=== PATIENT | female | born 1945 | race Caucasian/White ===

== ENCOUNTER 2018-09-30 03:01 | Inpatient (IN) | payer MEDICARE, OTHER ==
[~2018-09-30] VITALS: Ht 160 cm; Wt 45.5 kg
[2018-09-30] MEDS ORDERED: ONDANSETRON (ODT) 4 MG TAB ODT STA (03:08)
[2018-09-30] MEDS ORDERED: morphine 4 MG/ML VIAL IM STA (03:08)
[2018-09-30] MEDS ORDERED: morphine 4 MG/ML VIAL IV STA (05:20)
[2018-09-30] MEDS ORDERED: ONDANSETRON 4 MG INJ IV STA (05:20)
[2018-09-30 08:15] VITALS: BP 157/71; PULSE 87
[2018-09-30] MEDS ORDERED: morphine 4 MG/ML VIAL IV PRN (08:45)
[2018-09-30] MEDS: DEXTROSE 5%-0.45% NACL 1,000 ML IV SCH ×2 (09:00→22:44)
[2018-09-30] MEDS ORDERED: HYDROCODONE/APAP (5/325) TAB PO PRN (09:00)
[2018-09-30] MEDS ORDERED: ACETAMINOPHEN 325 MG TAB PO PRN (09:00)
[2018-09-30] MEDS: HYDROmorphONE 1 MG/ML SYG IV PRN ×3 (11:33→19:24)
[2018-09-30] MEDS ORDERED: OMEP10CA4 PO (12:42)
[2018-09-30] MEDS ORDERED: METO-448 PO (12:42)
[2018-09-30 12:55] VITALS: Ht 160 cm; Wt 45.5 kg
--- NOTE | 2018-09-30 14:56 | CONDCODE ---
Medicare Criteria-> INP to OBS Patient still in hospital: Yes SI/IS Criteria met: Yes Attending MD agrees w/change: Yes Order entered in Pt. record: Yes Pt. does not meet Inp Criteria: Yes Medicare Inp->Obs Criteria met: Yes UR Phys Advisor eSign required: Yes I personally scribed for TONEY DEL CID MD ([email or web address]) on 09/30/18 at 14:56. Electronically submitted by Jacob Padilla [facility] ([email or web address]). TONEY DEL CID MD Sep 30, 2018 14:56
--- NOTE | 2018-09-30 14:56 | CONDCODE ---
Medicare Criteria-> INP to OBS Patient still in hospital: Yes SI/IS Criteria met: Yes Attending MD agrees w/change: Yes Order entered in Pt. record: Yes Pt. does not meet Inp Criteria: Yes Medicare Inp->Obs Criteria met: Yes UR Phys Advisor eSign required: Yes External PA Confirmation from External PA: Yes I personally scribed for LORI MONTOYA MD ([email or web address]) on 09/30/18 at 14:56. Electronically submitted by Jacob Padilla [facility] ([facility]). LORI MONTOYA MD Sep 30, 2018 14:56
[2018-09-30 15:46] VITALS: BP 106/58; PULSE 75; RESP 18
[2018-09-30] MEDS: HYDROCODONE/APAP (5/325) TAB PO PRN ×2 (16:32→22:39)
[2018-09-30 19:44] VITALS: BP 102/85; PULSE 85; RESP 18
[2018-09-30 19:53] VITALS: BP 120/57; PULSE 83; RESP 18
[2018-09-30] MEDS: ZOLPIDEM 5 MG TAB PO PRN (21:47)
[2018-10-01 02:24] VITALS: BP 149/74; PULSE 89; RESP 18
[2018-10-01] MEDS: ALBUTEROL 0.083% (NEB) 2.5 MG/3 ML AMP HHN PRN ×2 (02:38→16:35)
[2018-10-01] MEDS: ONDANSETRON 4 MG INJ IV PRN ×3 (04:56→21:34)
[2018-10-01] MEDS: HYDROCODONE/APAP (5/325) TAB PO PRN ×4 (04:57→21:34)
[2018-10-01 07:36] VITALS: BP 117/58; PULSE 76; RESP 18
[2018-10-01 09:59] VITALS: BP 156/72; PULSE 86; RESP 19
[2018-10-01] MEDS ORDERED: SPECIAL NON-STANDARD MEDICATION INH PRN ×2 (12:00→23:45)
[2018-10-01] MEDS ORDERED: PANTOPRAZOLE (EC) 40 MG TAB PO SCH (12:00)
[2018-10-01] MEDS ORDERED: METOPROLOL 25 MG TAB PO ONE (12:00)
[2018-10-01] MEDS: HYDROmorphONE 1 MG/ML SYG IV PRN (12:21)
[2018-10-01] MEDS: DEXTROSE 5%-0.45% NACL 1,000 ML IV SCH (12:21)
--- NOTE | 2018-10-01 13:12 | PN ---
Date/Time of Note Date/Time of Note DATE: 10/01/18 TIME: 13:11 Assessment/Plan VTE Prophylaxis Risk score (from Nsg)>0 risk: 3 SCD applied (from Nsg): Yes Lines/Catheters IV Catheter Type (from Nrsg): [place] Urinary Cath still in place: No Assessment/Plan Assessment/Plan Positive fracture of the left proximal humerus. - not a surgical candidate per ortho consult - pain control - SP Mechanical fall - bed alarm on - Leukocytosis; but afebrile- possibly 2/2 to stress - monitor CBC - monitor VS - COPD - GERD - ppi - Generalized weakness - PT eval - SCD - Hx Heart attack; Sp stent placement Positive fracture of the left proximal humerus. - no acute issues - dW Dr Awan Result Diagram: 09/30/1851409/30/18514 Subjective 24 Hr Interval Summary Musculoskeletal: bone/joint pain, restricted range of motion Exam/Review of Systems Exam Vitals Vital Signs Date Temp Pulse Resp B/P (MAP) Pulse Ox O2 O2 Flow FiO2 Time Delivery Rate 10/01/18 98.2 86 19 156/72 98 09:59 (100) 10/01/18 Nasal 2.0 08:30 Cannula Intake and Output 09/30/18 09/30/18 10/01/18 1515:00 23:00 07:00 IntakeIntake Total 1240 ml OutputOutput Total 100 ml BalanceBalance 1240 ml -100 ml Constitutional: alert, well developed Psych: nl mood/affect Musculoskeletal: joint tenderness, range of motion Medications Medication Current Medications Acetaminophen (Tylenol Tab) 650 mg Q4H PRN PO MILD PAIN(1-3)OR ELEVATED TEMP; Start 09/30/18 at 09:00 Acetaminophen/ Hydrocodone Bitart ([place] (5/325)) 1 tab Q4H PRN PO MODERATE PAIN LEVEL 4-6; Start 09/30/18 at 09:00 Acetaminophen/ Hydrocodone Bitart ([place] (5/325)) 2 tab Q4H PRN PO MODERATE P AIN LEVEL 4-6 Last administered on 10/01/18at 08:59; Admin Dose 2 TAB; Start 09/30/18 at 09:00 Ondansetron HCl (Zofran Inj) 4 mg Q6H PRN IV NAUSEA AND/OR VOMITING Last administered on 4/26/19at 12:20; Admin Dose 4 MG; Start 09/30/18 at 09:00 Dextrose/Sodium Chloride 1,000 ml @ 75 mls/hr [id number] IV Last administered on 10/01/18 12:21; Admin Dose 75 MLS/HR; Start 09/30/18 at 09:00 Hydromorphone HCl (Dilaudid) 1 mg Q3H PRN IV SEVERE PAIN LEVEL 7-10 Last administered on 10/01/18 12:21; Admin Dose 1 MG; Start 09/30/18 at 11:30 Zolpidem Tartrate (Ambien) 5 mg HS MAY REPEAT X 1 PRN PO INSOMNIA Last administered on 09/30/18 21:47; Admin Dose 5 MG; Start 09/30/18 at 20:30 Albuterol (Proventil 0.083% (Neb)) 2.5 mg Q6H RESP THERAPY PRN HHN SHORTNESS OF BREATH Last administered on 10/01/18 02:38; Admin Dose 2.5 MG; Start 10/01/18 at 02:30 Pantoprazole (Protonix Tab) 40 mg DAILY@06 PO Last administered on 10/01/18at 12:11; Admin Dose 40 MG; Start 10/01/18 at 12:00 Non-Formulary Medication 2 ea BID INH ; Start 10/01/18 at 21:00; Status UNV Non-Formulary Medication 2 ea BID PRN INH WHEEZING AND SOB; Start 10/01/18 at 12:00; Status UNV Metoprolol Tartrate (Lopressor) 25 mg DAILY PO ; Start 10/02/18 at 09:00 DANUTA ARAUJO Oct 01, 2018 13:12
[2018-10-01 14:19] VITALS: BP 134/63; PULSE 76; RESP 18
--- NOTE | 2018-10-01 19:00 | CONS ---
DATE OF ADMISSION: 09/30/2018 DATE OF CONSULTATION: 09/30/2018 TYPE OF CONSULTATION: Orthopedic surgical. HISTORY OF PRESENT ILLNESS: The patient is a 72-year-old female who was admitted on 09/30/2018 when she came to the emergency room complaining of painful swelling and limit of motion involving her left shoulder. According to available information, she had a ground-level fall, landing on her left shou lder. Following the fall, she was having pain and swelling and limit of motion involving her left sh oulder. The initial diagnostic evaluation in the emergency room revealed presence of fracture involv ing the proximal left humerus and following initial management with the splint immobilization, she wa s admitted. PAST MEDICAL HISTORY: She has a history of heart attack, COPD and GERD. PHYSICAL EXAMINATION: My examination revealed a 72-year-old female who was not in any acute distress . Her left upper extremity was immobilized in a sling with long arm posterior splint in place. Limi jah examination through the splint revealed presence of swelling and tenderness over the proximal hum erus. There was no obvious neurovascular compromise involving the left upper extremity. DIAGNOSTIC STUDIES: X-rays of the left shoulder revealed presence of undisplaced fracture involving the surgical neck of the left humerus. DIAGNOSTIC IMPRESSION: Surgical neck fracture of the left humerus at the left shoulder. RECOMMENDATIONS FOR MANAGEMENT: 1. Continue immobilization in the present splint and sling for now. 2. Not a candidate for any surgical intervention at this time. 3. Immobilization with the left upper extremity in a sling and splint and a cane on the right hand w ith physical therapy. If she cannot tolerate the ambulation, then she can be discharged for further care as an outpatient. Dictated By: CINDY OCHOA/OWEN Conf#: [id number] DID#: [id number] CC: TONEY DEL CID MD;*EndCC*
[2018-10-01 21:00] VITALS: BP 148/72; PULSE 83; RESP 18
[2018-10-01] MEDS ORDERED: SPECIAL NON-STANDARD MEDICATION INH SCH (21:00)
[2018-10-01] MEDS: SPECIAL NON-STANDARD MEDICATION INH SCH (23:50)
[2018-10-01] MEDS: ZOLPIDEM 5 MG TAB PO PRN (23:50)
[2018-10-02 01:25] VITALS: BP 152/68; PULSE 77; RESP 18
[2018-10-02] MEDS: DEXTROSE 5%-0.45% NACL 1,000 ML IV SCH ×3 (05:56→21:42)
[2018-10-02] MEDS: HYDROCODONE/APAP (5/325) TAB PO PRN ×4 (05:57→21:28)
[2018-10-02 08:18] VITALS: BP 141/67; PULSE 88; RESP 18
[2018-10-02] MEDS ORDERED: OMEPRAZOLE 20 MG TABLET PO SCH (09:00)
[2018-10-02] MEDS: SPECIAL NON-STANDARD MEDICATION INH SCH ×2 (10:01→21:00)
[2018-10-02] MEDS: NICOTINE (14 MG/24 HR) PATCH TRANSDERM SCH (10:02)
[2018-10-02] MEDS: METOPROLOL 25 MG TAB PO SCH (10:02)
--- NOTE | 2018-10-02 15:03 | HP ---
Date/Time of Note Date/Time of Note DATE: 09/30/18 TIME: 14:20 Assessment/Plan VTE Prophylaxis Risk score (from Nsg)>0 risk: 2 SCD applied (from Nsg): Yes Lines/Catheters IV Catheter Type (from Nrsg): [place] Lock Assessment/Plan Assessment/Plan -Positive fracture of the left proximal humerus. - admit to tele - ortho consult - pain control - see admission orders - SP Mechanical fall - bed alarm om - COPD- breathing treatments - GERD - ppi - Drug Allergy -Penicillin -Sulfa - GERD - ppi - Generalized weakness - PT /OT eval - Hx Heart attack; Sp stent placement - cardiology consult - Former smoker - reinforce smoking cessation - provide smoking cessation - SCD for DVT prophylaxis Patient is seen in collaboration with Dr Awan Result Diagram: 09/30/18 0515 09/30/18 0515 Results 24hrs Laboratory Tests Test 09/30/18 05:15 White Blood Count 12.7 H Red Blood Count 3.94 L Hemoglobin 11.3 L Hematocrit 36.1 L Mean Corpuscular Volume 91.6 Mean Corpuscular Hemoglobin 28.7 L Mean Corpuscular Hemoglobin Concent 31.3 L Red Cell Distribution Width 17.0 H Platelet Count 303 Mean Platelet Volume 10.3 Immature Granulocytes % 0.600 H Neutrophils % 85.6 H Lymphocytes % 6.3 L Monocytes % 4.7 Eosinophils % 2.1 Basophils % 0.7 Nucleated Red Blood Cells % 0.0 Immature Granulocytes # 0.070 H Neutrophils # 10.8 H Lymphocytes # 0.8 Monocytes # 0.6 Eosinophils # 0.3 Basophils # 0.1 Nucleated Red Blood Cells # 0.0 Prothrombin Time 11.9 Prothrombin Time Ratio 0.9 INR International Normalized Ratio 0.87 Activated Partial Thromboplast Time 29.1 Sodium Level 140 Potassium Level 4.3 Chloride Level 104 Carbon Dioxide Level 29 Anion Gap 7 Blood Urea Nitrogen 20 Creatinine 0.74 Est Glomerular Filtrat Rate mL/min Glucose Level 127 Calcium Level 9.2 Total Bilirubin 0.1 L Direct Bilirubin 0.00 Indirect Bilirubin 0.1 Aspartate Amino Transf (AST/SGOT) 17 Alanine Aminotransferase (ALT/SGPT) 11 L Alkaline Phosphatase 103 Total Protein 6.9 Albumin 3.7 Globulin 3.20 Albumin/Globulin Ratio 1.15 HPI/ROS Admit Date/Time Admit Date/Time Sep 30, 2018 at 04:43 ROS This is a 72 years old female is admitted with SP Fall, c/o right shoulder pain. Shoulder X ray showed Positive fracture of the left proximal humerus.Seen by Dr Burleson- derrell surgery needed PMH/Family/Social Past Medical History Heart attack COPD Generelizew Medical History: GERD Medications Current Medications Acetaminophen (Tylenol Tab) 650 mg Q4H PRN PO MILD PAIN(1-3)OR ELEVATED TEMP; Start 09/30/18 at 09:00 Acetaminophen/ Hydrocodone Bitart ([place] (5/325)) 1 tab Q4H PRN PO MODERATE PAIN LEVEL 4-6; Start 09/30/18 at 09:00 Acetaminophen/ Hydrocodone Bitart ([place] (5/325)) 2 tab Q4H PRN PO MODERATE PAIN LEVEL 4-6; Start 09/30/18 at 09:00 Ondansetron HCl (Zofran Inj) 4 mg Q6H PRN IV NAUSEA AND/OR VOMITING; Start 09/30/18 at 09:00 Dextrose/Sodium Chloride 1,000 ml @ 75 mls/hr [id number] IV Last administered on 09/30/18at 09:00; Admin Dose 75 MLS/HR; Start 09/30/18 at 09:00 Hydromorphone HCl (Dilaudid) 1 mg Q3H PRN IV SEVERE PAIN LEVEL 7-10 Last admi nistered on 09/30/18at 11:33; Admin Dose 1 MG; Start 09/30/18 at 11:30 Coded Allergies: Penicillins (Verified Allergy, Mild, HIVES, ITCHINESS, RASHES, 09/10/06) Sulfa (Sulfonamide Antibiotics) (Verified Allergy, Mild, HIVES, ITCHINESS, RASHES, 09/10/06) Past Surgical History sp Cardiac stent Social History Alcohol Use: sober Smoking Status: Current every day smoker Exam/Review of Systems Vital Signs Vitals Vital Signs Date Temp Pulse Resp B/P (MAP) Pulse Ox O2 O2 Flow FiO2 Time Delivery Rate 09/30/18 Nasal 2.0 08:30 Cannula 09/30/18 98.5 87 157/71 96 08:15 (99) 09/30/18 16 07:31 Exam Psych: nl mood/affect Respiratory: diminished breath sounds Cardiovascular: nl pulses Gastrointestinal: soft, non-tender Musculoskeletal: joint tenderness, range of motion Extremities: normal pulses SADEORA,DANUTA Sep 30, 2018 14:31
[2018-10-02 15:09] VITALS: BP 150/74; PULSE 76; RESP 18
--- NOTE | 2018-10-02 15:16 | PN ---
Date/Time of Note Date/Time of Note DATE: 10/02/18 TIME: 14:26 Assessment/Plan VTE Prophylaxis Risk score (from Nsg)>0 risk: 4 SCD applied (from Nsg): Yes Lines/Catheters IV Catheter Type (from Nrsg): Peripheral IV Urinary Cath still in place: No Assessment/Plan Assessment/Plan Positive fracture of the left proximal humerus. - not a surgical candidate per ortho consult - pain control - SP Mechanical fall - bed alarm on - Leukocytosis; but afebrile- possibly 2/2 to stress - monitor CBC - monitor VS - COPD - pulm toilet - CT chest - possible lung opacity ; possible carcinoma - Pulm consult- Dr Hinds notified - possible alveolar cancer - oncology consult- Dr Tucker notified - GERD - ppi - Generalized weakness - PT eval - SCD - Hx Heart attack; Sp stent placement Positive fracture of the left proximal humerus. - patient had shortness of breath at times; 2-D echo cancelled 2/2 left arm position - will get cardiology consult - Dr Kline notified - Patient niece- Anthony Lin at [phone] - updated by Dr Awan regarding her status. for dW Dr Awan Result Diagram: 10/02/18 0436 10/02/18 0436 Results 24hrs Laboratory Tests Test 10/02/18 04:36 10/02/18 10:46 White Blood Count 9.3 # Red Blood Count 3.89 L Hemoglobin 11.2 L Hematocrit 36.2 L Mean Corpuscular Volume 93.1 Mean Corpuscular Hemoglobin 28.8 L Mean Corpuscular Hemoglobin Concent 30.9 L Red Cell Distribution Width 16.2 H Platelet Count 264 Mean Platelet Volume 10.8 H Immature Granulocytes % 0.300 Neutrophils % 80.4 H Lymphocytes % 8.7 L Monocytes % 8.9 Eosinophils % 1.3 Basophils % 0.4 Nucleated Red Blood Cells % 0.0 Immature Granulocytes # 0.030 Neutrophils # 7.5 Lymphocytes # 0.8 Monocytes # 0.8 Eosinophils # 0.1 Basophils # 0.0 Nucleated Red Blood Cells # 0.0 Sodium Level 141 Potassium Level 3.9 Chloride Level 105 Carbon Dioxide Level 31 Anion Gap 5 Blood Urea Nitrogen 9 # Creatinine 0.56 Est Glomerular Filtrat Rate mL/min Glucose Level 121 Calcium Level 9.6 Total Bilirubin 0.2 Direct Bilirubin 0.00 Indirect Bilirubin 0.2 Aspartate Amino Transf (AST/SGOT) 17 Alanine Aminotransferase (ALT/SGPT) 10 L Alkaline Phosphatase 98 Total Protein 6.6 Albumin 3.3 Globulin 3.30 H Albumin/Globulin Ratio 1.00 Blood Gas Specimen Source Blood arterial Arterial Blood Date Drawn 10/02/2018 10:47:40 AM Arterial Blood pH (Temp corrected) 7.422 Arterial Blood pCO2 (Temp correct) 45.1 H Arterial Blood pO2 (Temp corrected) 57.9 L Arterial Blood HCO3 28.7 H Arterial Blood Base Excess 3.7 H Arterial Blood Oxygen Saturation 91.3 L Aristeo Test ACCEPTAB Arterial Blood Gas Puncture Site Right Radial Arterial Blood Carboxyhemoglobin 0.5 Arterial Blood Methemoglobin 0.1 Blood Gas A-a O2 Differential 37.8 H Oxyhemoglobin Percent 90.8 L Blood Gas Temperature 37.0 Blood Gas Modality ROOM AIR FiO2 21.0 Blood Gas Notified Whom MDA Blood Gas Notified Time 10/02/2018 10:52:18 AM Subjective 24 Hr Interval Summary Respiratory: no complaints Cardiovascular: no complaints Gastrointestinal: no complaints Genitourinary: no complaints Musculoskeletal: bone/joint pain, restricted range of motion Endocrine: no complaints Psychological: nl mood/affect Immunologic: no complaints Exam/Review of Systems Exam Vitals Vital Signs Date Temp Pulse Resp B/P (MAP) Pulse Ox O2 O2 Flow FiO2 Time Delivery Rate 10/02/18 98.9 88 18 141/67 92 Nasal 08:18 (91) Cannula 10/02/18 2.0 04:00 Intake and Output 10/01/18 10/01/18 10/02/18 1414:59 22:59 06:59 IntakeIntake Total 1100 ml 400 ml 655 ml OutputOutput Total 200 ml 600 ml 700 ml BalanceBalance 900 ml -200 ml -45 ml Constitutional: alert, well developed Psych: nl mood/affect Eyes: nl conjunctiva ENMT: nl external ears & nose Neck: non-tender Respiratory: diminished breath sounds Cardiovascular: nl pulses, other (s1s2) Gastrointestinal: soft, non-tender Musculoskeletal: joint tenderness, range of motion Neurological: nl speech, other Skin: nl turgor Lymph: nontender Results Results 24hrs Laboratory Tests Test 10/02/18 04:36 10/02/18 10:46 White Blood Count 9.3 # Red Blood Count 3.89 L Hemoglobin 11.2 L Hematocrit 36.2 L Mean Corpuscular Volume 93.1 Mean Corpuscular Hemoglobin 28.8 L Mean Corpuscular Hemoglobin Concent 30.9 L Red Cell Distribution Width 16.2 H Platelet Count 264 Mean Platelet Volume 10.8 H Immature Granulocytes % 0.300 Neutrophils % 80.4 H Lymphocytes % 8.7 L Monocytes % 8.9 Eosinophils % 1.3 Basophils % 0.4 Nucleated Red Blood Cells % 0.0 Immature Granulocytes # 0.030 Neutrophils # 7.5 Lymphocytes # 0.8 Monocytes # 0.8 Eosinophils # 0.1 Basophils # 0.0 Nucleated Red Blood Cells # 0.0 Sodium Level 141 Potassium Level 3.9 Chloride Level 105 Carbon Dioxide Level 31 Anion Gap 5 Blood Urea Nitrogen 9 # Creatinine 0.56 Est Glomerular Filtrat Rate mL/min Glucose Level 121 Calcium Level 9.6 Total Bilirubin 0.2 Direct Bilirubin 0.00 Indirect Bilirubin 0.2 Aspartate Amino Transf (AST/SGOT) 17 Alanine Aminotransferase (ALT/SGPT) 10 L Alkaline Phosphatase 98 Total Protein 6.6 Albumin 3.3 Globulin 3.30 H Albumin/Globulin Ratio 1.00 Blood Gas Specimen Source Blood arterial Arterial Blood Date Drawn 10/02/2018 10:47:40 AM Arterial Blood pH (Temp corrected) 7.422 Arterial Blood pCO2 (Temp correct) 45.1 H Arterial Blood pO2 (Temp corrected) 57.9 L Arterial Blood HCO3 28.7 H Arterial Blood Base Excess 3.7 H Arterial Blood Oxygen Saturation 91.3 L Aristeo Test ACCEPTAB Arterial Blood Gas Puncture Site Right Radial Arterial Blood Carboxyhemoglobin 0.5 Arterial Blood Methemoglobin 0.1 Blood Gas A-a O2 Differential 37.8 H Oxyhemoglobin Percent 90.8 L Blood Gas Temperature 37.0 Blood Gas Modality ROOM AIR FiO2 21.0 Blood Gas Notified Whom MDA Blood Gas Notified Time 10/02/2018 10:52:18 AM Medications Medication Current Medications Acetaminophen (Tylenol Tab) 650 mg Q4H PRN PO MILD PAIN(1-3)OR ELEVATED TEMP; Start 09/30/18 at 09:00 Acetaminophen/ Hydrocodone Bitart ([place] (5/325)) 1 tab Q4H PRN PO MODERATE PAIN LEVEL 4-6; Start 09/30/18 at 09:00 Acetaminophen/ Hydrocodone Bitart ([place] (5/325)) 2 tab Q4H PRN PO MODERATE PAIN LEVEL 4-6 Last administered on 10/02/18 12:08; Admin Dose 2 TAB; Start 09/30/18 at 09:00 Ondansetron HCl (Zofran Inj) 4 mg Q6H PRN IV NAUSEA AND/OR VOMITING Last administered on 10/01/18 21:34; Admin Dose 4 MG; Start 09/30/18 at 09:00 Dextrose/Sodium Chloride 1,000 ml @ 75 mls/hr [id number] IV Last administered on 10/02/18 05:56; Admin Dose 75 MLS/HR; Start 09/30/18 at 09:00 Hydromorphone HCl (Dilaudid) 1 mg Q3H PRN IV SEVERE PAIN LEVEL 7-10 Last administered on 10/01/18 12:21; Admin Dose 1 MG; Start 09/30/18 at 11:30 Zolpidem Tartrate (Ambien) 5 mg HS MAY REPEAT X 1 PRN PO INSOMNIA Last administered on 10/01/18 23:50; Admin Dose 5 MG; Start 09/30/18 at 20:30 Albuterol (Proventil 0.083% (Neb)) 2.5 mg Q6H RESP THERAPY PRN HHN SHORTNESS OF BREATH Last administered on 10/01/18 16:35; Admin Dose 2.5 MG; Start 10/01/18 at 02:30 Metoprolol Tartrate (Lopressor) 25 mg DAILY PO Last administered on 10/02/18 10:02; Admin Dose 25 MG; Start 10/02/18 at 09:00 Non-Formulary Medication 2 ea BID INH Last administered on 10/02/18 10:01; Admin Dose 2 EA; Start 10/01/18 at 23:28 Non-Formulary Medication 2 ea BID PRN INH WHEEZING AND SOB; Start 10/01/18 at 23:45 Calcium Carbonate (Tums) 500 mg Q4H PRN PO HEARTBURN; Start 10/02/18 at 01:00 Nicotine (Nicoderm 14 Mg/ 24hr) 1 patch DAILY TRANSDERM Last administered on 10/02/18 10:02; Admin Dose 1 PATCH; Start 10/02/18 at 09:00 Patient Own Medication 1 ea DAILY PO Last administered on 4/27/19at 10:12; Admin Dose 1 EA; Start 10/02/18 at 09:00 DANUTA ARAUJO Oct 02, 2018 14:37
--- NOTE | 2018-10-02 16:04 | CONS ---
Assessment/Plan Assessment/Plan Assessment/Plan (Daily) 72 yo F with PMH of COPD/emhysema, history of recurrent pneumonias, GERD and CAD s/p [place] who is admitted for a ground level mechanical fall resulting in a left proximal humerus fracture. Patient also had cough and CT scan showed a RML ground glass nodule of 5.4 mm. # RML ground glass lesion -It is quite small and this nodule could be inflammatory from her COPD and bronchopneumonia. -It is too small to safely biopsy at this point in time. -I would repeat another scan in 3 months after pneumonia resolved to see if this nodule is still present. -No need for inpatient work up at this time. -Patient has been seeing outpatient Dr. Mackey and thus she can follow with him as well for previous LLL surgery. # Left proximal humerus fracture -Ortho on board and patient is in a sling. Thank you to Dr. Awan for allowing me to participate in the care of this patient. A total of 40 minutes was spent in consultation with the patient and patient's questions were answered. Consultation Date/Type/Reason Admit Date/Time Sep 30, 2018 at 04:43 Date of Consultation: Oct 02, 2018 Type of Consult hematology/oncology Reason for Consultation 5.4 mm lung nodule Date/Time of Note DATE: 10/02/18 TIME: 16:04 Hx of Present Illness 72 yo F with PMH of COPD/emhysema, history of recurrent pneumonias, GERD and CAD s/p [place] who is admitted for a ground level mechanical fall resulting in a left proximal humerus fracture. Patient has also been complaining of productive cough for the past 1 week with green mucous. She also is on oxygen for her COPD and states that shortness of breath has been worse with exertion. Of note patient has been seeing Dr. Mackey for a possible lung cancer that has been surgically removed in the LLL. We do not have any history for this. Due to her breathing issues, patient had a CT scan done showin. Diffuse bronchitis / bronchiolitis predominantly involving the lower lobes, with findings suggestive of bronchopneumonia in the right middle lobe. 2. Ground-glass opacity in the lateral basilar right middle lobe is likely infectious or inflammatory in etiology, but could reflect bronchoalveolar carcinoma. Clinical correlation recommended with consideration for follow-up imaging. 3. Postsurgical changes of the posterior basilar left lower lobe with scarring and retained surgical clips. 4. Moderate COPD with some upper lobe bullous changes. 5. Mildly dilated main pulmonary artery, possibly reflecting pulmonary hypertension. 6. Aortic and mitral valve annular calcifications may reflect valvular stenosis, without cardiomegaly. 7. Atherosclerosis and coronary artery calcifications. 8. Nonspecific prominence of the biliary ductal system with probable mild pancreatic ductal dilatation in patient with prior cholecystectomy. Clinical correlation recommended with consideration for further evaluation with MRCP. Ground glass opacity was measuring about 5 mm in the RML. PMH: as above PSxH: as above SH: Tobacco: quit 3 months ago but smoked 1/2 ppd for 40 years. ETOH: socially. Denies IVDA. FH: Denies any family history of blood disorders or cancers. Meds: see list All: see list Constitutional: improved Eyes: no complaints ENT: no complaints Respiratory: cough, shortness of breath Cardiovascular: no complaints Gastrointestinal: no complaints Genitourinary: no complaints Musculoskeletal: bone/joint pain, restricted range of motion Skin: no complaints Neurologic: no complaints Endocrine: no complaints Lymphatic: no complaints Psychological: no complaints, nl mood/affect Immunologic: no complaints Past Medical History Medical History: GERD Home Meds Reported Medications Metoprolol Tartrate* (Lopressor*) 25 Mg Tab, 25 MG PO DAILY, #60 TAB 09/30/18 Omeprazole* (Omeprazole*) 10 Mg Capsule.dr, 10 MG PO DAILY, #30 CAP 09/30/18 Medications Current Medications Acetaminophen (Tylenol Tab) 650 mg Q4H PRN PO MILD PAIN(1-3)OR ELEVATED TEMP; Start 09/30/18 at 09:00 Acetaminophen/ Hydrocodone Bitart ([place] (5/325)) 1 tab Q4H PRN PO MODERATE PAIN LEVEL 4-6; Start 09/30/18 at 09:00 Acetaminophen/ Hydrocodone Bitart ([place] (5/325)) 2 tab Q4H PRN PO MODERATE PAIN LEVEL 4-6 Last administered on 10/02/18at 12:08; Admin Dose 2 TAB; Start 09/30/18 at 09:00 Ondansetron HCl (Zofran Inj) 4 mg Q6H PRN IV NAUSEA AND/OR VOMITING Last administered on 10/01/18at 21:34; Admin Dose 4 MG; Start 09/30/18 at 09:00 Dextrose/Sodium Chloride 1,000 ml @ 75 mls/hr [id number] IV Last administered on 10/02/18 05:56; Admin Dose 75 MLS/HR; Start 09/30/18 at 09:00 Hydromorphone HCl (Dilaudid) 1 mg Q3H PRN IV SEVERE PAIN LEVEL 7-10 Last administered on 10/01/18 12:21; Admin Dose 1 MG; Start 09/30/18 at 11:30 Zolpidem Tartrate (Ambien) 5 mg HS MAY REPEAT X 1 PRN PO INSOMNIA Last administ ered on 10/01/18 23:50; Admin Dose 5 MG; Start 09/30/18 at 20:30 Albuterol (Proventil 0.083% (Neb)) 2.5 mg Q6H RESP THERAPY PRN HHN SHORTNESS OF BREATH Last administered on 10/01/18 16:35; Admin Dose 2.5 MG; Start 10/01/18 at 02:30 Metoprolol Tartrate (Lopressor) 25 mg DAILY PO Last administered on 10/02/18 10:02; Admin Dose 25 MG; Start 10/02/18 at 09:00 Non-Formulary Medication 2 ea BID INH Last administered on 10/02/18 10:01; Admin Dose 2 EA; Start 10/01/18 at 23:28 Non-Formulary Medication 2 ea BID PRN INH WHEEZING AND SOB; Start 10/01/18 at 23:45 Calcium Carbonate (Tums) 500 mg Q4H PRN PO HEARTBURN; Start 10/02/18 at 01:00 Nicotine (Nicoderm 14 Mg/ 24hr) 1 patch DAILY TRANSDERM Last administered on 10/02/18 10:02; Admin Dose 1 PATCH; Start 10/02/18 at 09:00 Pantoprazole (Protonix Tab) 40 mg BID@06,18 PO ; Start 10/02/18 at 18:00 Allergies: Coded Allergies: Penicillins (Verified Allergy, Mild, HIVES, ITCHINESS, RASHES, 09/10/06) Sulfa (Sulfonamides) (Verified Allergy, Mild, HIVES, ITCHINESS, RASHES, 09/10/06) Social History Alcohol Use: sober Smoking Status: Current every day smoker Exam/Review of Systems Exam Vitals Vital Signs Date Temp Pulse Resp B/P (MAP) Pulse Ox O2 O2 Flow FiO2 Time Delivery Rate 10/02/18 98.0 76 18 150/74 98 Nasal 15:09 (99) Cannula 10/02/18 2.0 04:00 Intake and Output 10/01/18 10/01/18 10/02/18 1515:00 23:00 07:00 IntakeIntake Total 1100 ml 400 ml 655 ml OutputOutput Total 200 ml 600 ml 700 ml BalanceBalance 900 ml -200 ml -45 ml Constitutional: alert, oriented, well developed Psych: no complaints, nl mood/affect Head: normocephalic, atraumatic Eyes: nl conjunctiva, EOMI, nl lids, nl sclera, PERRL ENMT: nl external ears & nose, nl lips & teeth, nl nasal mucosa & septum Respiratory: congested cough, diminished breath sounds Cardiovascular: regular rate and rhythm, nl pulses Gastrointestinal: soft, nl liver, spleen, non-tender Musculoskeletal: other (Left upper extremity in sling due to fracture) Extremities: normal pulses Neurological: SOLE CUTTER II-XII intact, nl mental status, nl speech, nl strength Skin: nl turgor; No rash or lesions Lymph: nl lymph nodes Results Result Diagram: 10/02/18 0436 10/02/18 0436 Results 24hrs Laboratory Tests Test 10/02/18 04:36 10/02/18 10:46 White Blood Count 9.3 # Red Blood Count 3.89 L Hemoglobin 11.2 L Hematocrit 36.2 L Mean Corpuscular Volume 93.1 Mean Corpuscular Hemoglobin 28.8 L Mean Corpuscular Hemoglobin Concent 30.9 L Red Cell Distribution Width 16.2 H Platelet Count 264 Mean Platelet Volume 10.8 H Immature Granulocytes % 0.300 Neutrophils % 80.4 H Lymphocytes % 8.7 L Monocytes % 8.9 Eosinophils % 1.3 Basophils % 0.4 Nucleated Red Blood Cells % 0.0 Immature Granulocytes # 0.030 Neutrophils # 7.5 Lymphocytes # 0.8 Monocytes # 0.8 Eosinophils # 0.1 Basophils # 0.0 Nucleated Red Blood Cells # 0.0 Sodium Level 141 Potassium Level 3.9 Chloride Level 105 Carbon Dioxide Level 31 Anion Gap 5 Blood Urea Nitrogen 9 # Creatinine 0.56 Est Glomerular Filtrat Rate mL/min Glucose Level 121 Calcium Level 9.6 Total Bilirubin 0.2 Direct Bilirubin 0.00 Indirect Bilirubin 0.2 Aspartate Amino Transf (AST/SGOT) 17 Alanine Aminotransferase (ALT/SGPT) 10 L Alkaline Phosphatase 98 Total Protein 6.6 Albumin 3.3 Globulin 3.30 H Albumin/Globulin Ratio 1.00 Blood Gas Specimen Source Blood arterial Arterial Blood Date Drawn 10/02/2018 10:47:40 AM Arterial Blood pH (Temp corrected) 7.422 Arterial Blood pCO2 (Temp correct) 45.1 H Arterial Blood pO2 (Temp corrected) 57.9 L Arterial Blood HCO3 28.7 H Arterial Blood Base Excess 3.7 H Arterial Blood Oxygen Saturation 91.3 L Aristeo Test ACCEPTAB Arterial Blood Gas Puncture Site Right Radial Arterial Blood Carboxyhemoglobin 0.5 Arterial Blood Methemoglobin 0.1 Blood Gas A-a O2 Differential 37.8 H Oxyhemoglobin Percent 90.8 L Blood Gas Temperature 37.0 Blood Gas Modality ROOM AIR FiO2 21.0 Blood Gas Notified Whom MDA Blood Gas Notified Time 10/02/2018 10:52:18 AM Medications Medication Current Medications Acetaminophen (Tylenol Tab) 650 mg Q4H PRN PO MILD PAIN(1-3)OR ELEVATED TEMP; Start 09/30/18 at 09:00 Acetaminophen/ Hydrocodone Bitart ([place] (5/325)) 1 tab Q4H PRN PO MODERATE PAIN LEVEL 4-6; Start 09/30/18 at 09:00 Acetaminophen/ Hydrocodone Bitart ([place] (5/325)) 2 tab Q4H PRN PO MODERATE PAIN LEVEL 4-6 Last administered on 10/02/18at 12:08; Admin Dose 2 TAB; Start 09/30/18 at 09:00 Ondansetron HCl (Zofran Inj) 4 mg Q6H PRN IV NAUSEA AND/OR VOMITING Last administered on 10/01/18at 21:34; Admin Dose 4 MG; Start 09/30/18 at 09:00 Dextrose/Sodium Chloride 1,000 ml @ 75 mls/hr [id number] IV Last administered on 10/02/18at 05:56; Admin Dose 75 MLS/HR; Start 09/30/18 at 09:00 Hydromorphone HCl (Dilaudid) 1 mg Q3H PRN IV SEVERE PAIN LEVEL 7-10 Last administered on 10/01/18at 12:21; Admin Dose 1 MG; Start 09/30/18 at 11:30 Zolpidem Tartrate (Ambien) 5 mg HS MAY REPEAT X 1 PRN PO INSOMNIA Last administered on 10/01/18at 23:50; Admin Dose 5 MG; Start 09/30/18 at 20:30 Albuterol (Proventil 0.083% (Neb)) 2.5 mg Q6H RESP THERAPY PRN HHN SHORTNESS OF BREATH Last administered on 10/01/18at 16:35; Admin Dose 2.5 MG; Start 10/01/18 at 02:30 Metoprolol Tartrate (Lopressor) 25 mg DAILY PO Last administered on 10/02/18at 10:02; Admin Dose 25 MG; Start 10/02/18 at 09:00 Non-Formulary Medication 2 ea BID INH Last administered on 10/02/18at 10:01; Admin Dose 2 EA; Start 10/01/18 at 23:28 Non-Formulary Medication 2 ea BID PRN INH WHEEZING AND SOB; Start 10/01/18 at 23:45 Calcium Carbonate (Tums) 500 mg Q4H PRN PO HEARTBURN; Start 10/02/18 at 01:00 Nicotine (Nicoderm 14 Mg/ 24hr) 1 patch DAILY TRANSDERM Last administered on 10/02/18at 10:02; Admin Dose 1 PATCH; Start 10/02/18 at 09:00 Pantoprazole (Protonix Tab) 40 mg BID@06,18 PO ; Start 10/02/18 at 18:00 JOSELIN BAEZ DO Oct 02, 2018 16:04
[2018-10-02] MEDS: PANTOPRAZOLE (EC) 40 MG TAB PO SCH (18:49)
[2018-10-02] MEDS: ALBUTEROL 0.083% (NEB) 2.5 MG/3 ML AMP HHN PRN (20:43)
[2018-10-02 21:00] VITALS: BP 136/90; PULSE 80; RESP 18
[2018-10-02 21:08] VITALS: RESP 18
--- NOTE | 2018-10-02 21:21 | CONS ---
Assessment/Plan Assessment/Plan Assessment/Plan (Daily) IMP: 1. RML Ground Glass Opacity: Very low risk for slow growing lung adenocarcinoma. Based on Fleischner guidelines, would repeat CT scan in 6 - 12 months 2. Mild COPD Exacerbation 3. Infectious Bronchiolitis- r/o NTM such as MAC 4. Shoulder Fx RECS: 1. Repeat CT chest 6 to 12 months 2. Treat for COPD exacerbation with duonebs, short course of CS, and azithromycin 3. Consider sending sputa for AFB x 3 (for MAC) 4. Outpatient PFTs Consultation Date/Type/Reason Admit Date/Time Sep 30, 2018 at 04:43 Date of Consultation: Oct 02, 2018 Type of Consult Pulm Reason for Consultation GG nodule Date/Time of Note DATE: 10/02/18 TIME: 21:10 Hx of Present Illness Briefly, this is a 72-year-old female with a history of COPD on home oxygen, prior pneumonia, CAD s/p [place], who has had increasing productive cough over the course of a week and exertion dyspnea. She was admitted after sustaining a fall resulting in left humeral fracture. She had a s CT chest which showed bronchial wall thickening, centrilobular emphysema, RML tree-in-bud micronodules and ~ 6 mm peripheral RML lateral segment GGO. Constitutional: no complaints Eyes: no complaints ENT: no complaints Respiratory: cough, shortness of breath Cardiovascular: no complaints Gastrointestinal: no complaints Genitourinary: no complaints Musculoskeletal: bone/joint pain, restricted range of motion Skin: no complaints Neurologic: no complaints Endocrine: no complaints Lymphatic: no complaints Psychological: no complaints Past Medical History Medical History: coronary artery disease, GERD Home Meds Reported Medications Metoprolol Tartrate* (Lopressor*) 25 Mg Tab, 25 MG PO DAILY, #60 TAB 09/30/18 Omeprazole* (Omeprazole*) 10 Mg Capsule.dr, 10 MG PO DAILY, #30 CAP 09/30/18 Medications Current Medications Acetaminophen (Tylenol Tab) 650 mg Q4H PRN PO MILD PAIN(1-3)OR ELEVATED TEMP; Start 09/30/18 at 09:00 Acetaminophen/ Hydrocodone Bitart ([place] (5/325)) 1 tab Q4H PRN PO MODERATE PAIN LEVEL 4-6; Start 09/30/18 at 09:00 Acetaminophen/ Hydrocodone Bitart ([place] (5/325)) 2 tab Q4H PRN PO MODERATE PAIN LEVEL 4-6 Last administered on 10/02/18 16:57; Admin Dose 2 TAB; Start 09/30/18 at 09:00 Ondansetron HCl (Zofran Inj) 4 mg Q6H PRN IV NAUSEA AND/OR VOMITING Last administered on 10/01/18 21:34; Admin Dose 4 MG; Start 09/30/18 at 09:00 Dextrose/Sodium Chloride 1,000 ml @ 75 mls/hr [id number] IV Last administered on 10/02/18 05:56; Admin Dose 75 MLS/HR; Start 09/30/18 at 09:00 Hydromorphone HCl (Dilaudid) 1 mg Q3H PRN IV SEVERE PAIN LEVEL 7-10 Last administered on 10/01/18 12:21; Admin Dose 1 MG; Start 09/30/18 at 11:30 Zolpidem Tartrate (Ambien) 5 mg HS MAY REPEAT X 1 PRN PO INSOMNIA Last administered on 10/01/18 23:50; Admin Dose 5 MG; Start 09/30/18 at 20:30 Albuterol (Proventil 0.083% (Neb)) 2.5 mg Q6H RESP THERAPY PRN HHN SHORTNESS OF BREATH Last administered on 10/02/18 20:43; Admin Dose 2.5 MG; Start 10/01/18 at 02:30 Metoprolol Tartrate (Lopressor) 25 mg DAILY PO Last administered on 10/02/18 10:02; Admin Dose 25 MG; Start 10/02/18 at 09:00 Non-Formulary Medication 2 ea BID INH Last administered on 10/02/18 10:01; Admin Dose 2 EA; Start 10/01/18 at 23:28 Non-Formulary Medication 2 ea BID PRN INH WHEEZING AND SOB; Start 10/01/18 at 23:45 Calcium Carbonate (Tums) 500 mg Q4H PRN PO HEARTBURN; Start 10/02/18 at 01:00 Nicotine (Nicoderm 14 Mg/ 24hr) 1 patch DAILY TRANSDERM Last administered on 10/02/18 10:02; Admin Dose 1 PATCH; Start 10/02/18 at 09:00 Pantoprazole (Protonix Tab) 40 mg BID@06,18 PO Last administered on 10/02/18at 18:49; Admin Dose 40 MG; Start 10/02/18 at 18:00 Guaifenesin (Mucinex) 600 mg BID PO ; Start 10/02/18 at 21:00 Allergies: Coded Allergies: Penicillins (Verified Allergy, Mild, HIVES, ITCHINESS, RASHES, 09/10/06) Sulfa (Sulfonamides) (Verified Allergy, Mild, HIVES, ITCHINESS, RASHES, 09/10/06) Past Surgical History Past Surgical Hx: no surgical history Social History Alcohol Use: sober Smoking Status: Current every day smoker Exam/Review of Systems Exam Vitals Vital Signs Date Temp Pulse Resp B/P (MAP) Pulse Ox O2 O2 Flow FiO2 Time Delivery Rate 10/02/18 98.4 18 95 21:08 10/02/18 2.0 20:48 10/02/18 75 Nasal 20:48 Cannula 10/02/18 150/74 15:09 (99) Intake and Output 10/01/18 10/01/18 10/02/18 1515:00 23:00 07:00 IntakeIntake Total 1100 ml 400 ml 655 ml OutputOutput Total 200 ml 600 ml 700 ml BalanceBalance 900 ml -200 ml -45 ml Constitutional: alert, oriented, well developed Psych: no complaints, nl mood/affect Head: normocephalic, atraumatic Eyes: nl conjunctiva, EOMI, nl lids, nl sclera ENMT: nl external ears & nose, nl lips & teeth, nl nasal mucosa & septum, mucosa pink and moist Neck: supple, non-tender Respiratory: diminished breath sounds Cardiovascular: regular rate and rhythm, nl pulses Gastrointestinal: soft, nl liver, spleen, non-tender Musculoskeletal: nl extremities to inspection, nl gait and stance Extremities: normal pulses Neurological: SHANKER OUT II-XII intact, DTR's symmetric Results Result Diagram: 10/02/18 0436 10/02/18 0436 Results 24hrs Laboratory Tests Test 10/02/18 04:36 10/02/18 10:46 White Blood Count 9.3 # Red Blood Count 3.89 L Hemoglobin 11.2 L Hematocrit 36.2 L Mean Corpuscular Volume 93.1 Mean Corpuscular Hemoglobin 28.8 L Mean Corpuscular Hemoglobin Concent 30.9 L Red Cell Distribution Width 16.2 H Platelet Count 264 Mean Platelet Volume 10.8 H Immature Granulocytes % 0.300 Neutrophils % 80.4 H Lymphocytes % 8.7 L Monocytes % 8.9 Eosinophils % 1.3 Basophils % 0.4 Nucleated Red Blood Cells % 0.0 Immature Granulocytes # 0.030 Neutrophils # 7.5 Lymphocytes # 0.8 Monocytes # 0.8 Eosinophils # 0.1 Basophils # 0.0 Nucleated Red Blood Cells # 0.0 Sodium Level 141 Potassium Level 3.9 Chloride Level 105 Carbon Dioxide Level 31 Anion Gap 5 Blood Urea Nitrogen 9 # Creatinine 0.56 Est Glomerular Filtrat Rate mL/min Glucose Level 121 Calcium Level 9.6 Total Bilirubin 0.2 Direct Bilirubin 0.00 Indirect Bilirubin 0.2 Aspartate Amino Transf (AST/SGOT) 17 Alanine Aminotransferase (ALT/SGPT) 10 L Alkaline Phosphatase 98 Total Protein 6.6 Albumin 3.3 Globulin 3.30 H Albumin/Globulin Ratio 1.00 Blood Gas Specimen Source Blood arterial Arterial Blood Date Drawn 10/02/2018 10:47:40 AM Arterial Blood pH (Temp corrected) 7.422 Arterial Blood pCO2 (Temp correct) 45.1 H Arterial Blood pO2 (Temp corrected) 57.9 L Arterial Blood HCO3 28.7 H Arterial Blood Base Excess 3.7 H Arterial Blood Oxygen Saturation 91.3 L Aristeo Test ACCEPTAB Arterial Blood Gas Puncture Site Right Radial Arterial Blood Carboxyhemoglobin 0.5 Arterial Blood Methemoglobin 0.1 Blood Gas A-a O2 Differential 37.8 H Oxyhemoglobin Percent 90.8 L Blood Gas Temperature 37.0 Blood Gas Modality ROOM AIR FiO2 21.0 Blood Gas Notified Whom MDA Blood Gas Notified Time 10/02/2018 10:52:18 AM Medications Medication Current Medications Acetaminophen (Tylenol Tab) 650 mg Q4H PRN PO MILD PAIN(1-3)OR ELEVATED TEMP; Start 09/30/18 at 09:00 Acetaminophen/ Hydrocodone Bitart ([place] (5/325)) 1 tab Q4H PRN PO MODERATE PAIN LEVEL 4-6; Start 09/30/18 at 09:00 Acetaminophen/ Hydrocodone Bitart ([place] (5/325)) 2 tab Q4H PRN PO MODERATE PAIN LEVEL 4-6 Last administered on 10/02/18at 16:57; Admin Dose 2 TAB; Start 09/30/18 at 09:00 Ondansetron HCl (Zofran Inj) 4 mg Q6H PRN IV NAUSEA AND/OR VOMITING Last administered on 10/01/18 21:34; Admin Dose 4 MG; Start 09/30/18 at 09:00 Dextrose/Sodium Chloride 1,000 ml @ 75 mls/hr [id number] IV Last administered on 10/02/18 05:56; Admin Dose 75 MLS/HR; Start 09/30/18 at 09:00 Hydromorphone HCl (Dilaudid) 1 mg Q3H PRN IV SEVERE PAIN LEVEL 7-10 Last administered on 10/01/18 12:21; Admin Dose 1 MG; Start 09/30/18 at 11:30 Zolpidem Tartrate (Ambien) 5 mg HS MAY REPEAT X 1 PRN PO INSOMNIA Last administered on 10/01/18 23:50; Admin Dose 5 MG; Start 09/30/18 at 20:30 Albuterol (Proventil 0.083% (Neb)) 2.5 mg Q6H RESP THERAPY PRN HHN SHORTNESS OF BREATH Last administered on 10/02/18 20:43; Admin Dose 2.5 MG; Start 10/01/18 at 02:30 Metoprolol Tartrate (Lopressor) 25 mg DAILY PO Last administered on 10/02/18 10:02; Admin Dose 25 MG; Start 10/02/18 at 09:00 Non-Formulary Medication 2 ea BID INH Last administered on 10/02/18 10:01; Admin Dose 2 EA; Start 10/01/18 at 23:28 Non-Formulary Medication 2 ea BID PRN INH WHEEZING AND SOB; Start 10/01/18 at 23:45 Calcium Carbonate (Tums) 500 mg Q4H PRN PO HEARTBURN; Start 10/02/18 at 01:00 Nicotine (Nicoderm 14 Mg/ 24hr) 1 patch DAILY TRANSDERM Last administered on 10/02/18 10:02; Admin Dose 1 PATCH; Start 10/02/18 at 09:00 Pantoprazole (Protonix Tab) 40 mg BID@06,18 PO Last administered on 10/02/18 18:49; Admin Dose 40 MG; Start 10/02/18 at 18:00 Guaifenesin (Mucinex) 600 mg BID PO ; Start 10/02/18 at 21:00 ISRRAEL LITTLE MD Oct 02, 2018 21:21
[2018-10-02] MEDS: GUAIFENESIN LA 600 MG TABSR PO SCH (21:50)
[2018-10-02] MEDS: ZOLPIDEM 5 MG TAB PO PRN (22:38)
[2018-10-02] MEDS: ONDANSETRON 4 MG INJ IV PRN (23:26)
[2018-10-03 02:28] VITALS: BP 166/84; PULSE 82; RESP 18
[2018-10-03] MEDS: PANTOPRAZOLE (EC) 40 MG TAB PO SCH ×2 (05:13→17:29)
[2018-10-03] MEDS: ONDANSETRON 4 MG INJ IV PRN ×3 (05:14→16:12)
[2018-10-03] MEDS: HYDROCODONE/APAP (5/325) TAB PO PRN ×3 (05:14→14:50)
[2018-10-03] MEDS: ALBUTEROL 0.083% (NEB) 2.5 MG/3 ML AMP HHN PRN (05:36)
[2018-10-03 07:43] VITALS: BP 149/68; PULSE 77; RESP 14
[2018-10-03] MEDS: GUAIFENESIN LA 600 MG TABSR PO SCH ×2 (08:47→21:00)
[2018-10-03] MEDS: METOPROLOL 25 MG TAB PO SCH (09:29)
[2018-10-03] MEDS: NICOTINE (14 MG/24 HR) PATCH TRANSDERM SCH (09:36)
[2018-10-03] MEDS: CEFTRIAXONE 1 GM/50 ML (PMX) 50 ML IVPB SCH (09:44)
[2018-10-03] MEDS: SPECIAL NON-STANDARD MEDICATION INH SCH ×2 (09:46→21:13)
[2018-10-03] MEDS ORDERED: AZITHROMYCIN 500 MG TAB PO ONE (10:00)
--- NOTE | 2018-10-03 13:40 | PN ---
Date/Time of Note Date/Time of Note DATE: 10/03/18 TIME: 13:40 Assessment/Plan VTE Prophylaxis Risk score (from Nsg)>0 risk: 6 SCD applied (from Nsg): Yes Lines/Catheters IV Catheter Type (from Nrsg): Saline Lock Urinary Cath still in place: No Assessment/Plan Assessment/Plan Positive fracture of the left proximal humerus. - not a surgical candidate per ortho consult - pain control - SP Mechanical fall - bed alarm on - Leukocytosis; but afebrile- possibly 2/2 to stress - monitor CBC - monitor VS - COPD - pulm toilet - CT chest - possible lung opacity ; possible carcinoma - Pulm consult- Dr Hinds notified - possible alveolar cancer - oncology consult- Dr Tucker notified - GERD - ppi - Generalized weakness - PT eval - SCD - Hx Heart attack; Sp stent placement Positive fracture of the left proximal humerus. - patient had shortness of breath at times; 2-D echo cancelled 2/2 left arm position - will get cardiology consult - Dr Kline notified - Patient niece- Anthony Lin at [phone] - updated by Dr Awan regarding her status. for dW Dr Awan Result Diagram: 10/03/18 0438 10/03/18 0438 Results 24hrs Laboratory Tests Test 10/03/18 04:38 White Blood Count 6.9 # Red Blood Count 4.02 L Hemoglobin 11.7 L Hematocrit 37.5 Mean Corpuscular Volume 93.3 Mean Corpuscular Hemoglobin 29.1 Mean Corpuscular Hemoglobin Concent 31.2 L Red Cell Distribution Width 16.3 H Platelet Count 244 Mean Platelet Volume 10.7 H Immature Granulocytes % 0.300 Neutrophils % 74.7 Lymphocytes % 12.0 L Monocytes % 8.8 Eosinophils % 3.3 Basophils % 0.9 Nucleated Red Blood Cells % 0.0 Immature Granulocytes # 0.020 Neutrophils # 5.2 Lymphocytes # 0.8 Monocytes # 0.6 Eosinophils # 0.2 Basophils # 0.1 Nucleated Red Blood Cells # 0.0 Sodium Level 140 Potassium Level 3.8 Chloride Level 104 Carbon Dioxide Level 31 Anion Gap 5 Blood Urea Nitrogen 8 Creatinine 0.54 Est Glomerular Filtrat Rate mL/min Glucose Level 117 Calcium Level 9.2 Exam/Review of Systems Exam Vitals Vital Signs Date Temp Pulse Resp B/P (MAP) Pulse Ox O2 O2 Flow FiO2 Time Delivery Rate 10/03/18 Nasal 2.0 09:00 Cannula 10/03/18 98.0 77 14 149/68 96 07:43 (95) Intake and Output 10/02/18 10/02/18 10/03/18 1515:00 23:00 07:00 IntakeIntake Total 1700 ml 1150 ml OutputOutput Total 150 ml 850 ml BalanceBalance 1550 ml 300 ml Results Results 24hrs Laboratory Tests Test 10/03/18 04:38 White Blood Count 6.9 # Red Blood Count 4.02 L Hemoglobin 11.7 L Hematocrit 37.5 Mean Corpuscular Volume 93.3 Mean Corpuscular Hemoglobin 29.1 Mean Corpuscular Hemoglobin Concent 31.2 L Red Cell Distribution Width 16.3 H Platelet Count 244 Mean Platelet Volume 10.7 H Immature Granulocytes % 0.300 Neutrophils % 74.7 Lymphocytes % 12.0 L Monocytes % 8.8 Eosinophils % 3.3 Basophils % 0.9 Nucleated Red Blood Cells % 0.0 Immature Granulocytes # 0.020 Neutrophils # 5.2 Lymphocytes # 0.8 Monocytes # 0.6 Eosinophils # 0.2 Basophils # 0.1 Nucleated Red Blood Cells # 0.0 Sodium Level 140 Potassium Level 3.8 Chloride Level 104 Carbon Dioxide Level 31 Anion Gap 5 Blood Urea Nitrogen 8 Creatinine 0.54 Est Glomerular Filtrat Rate mL/min Glucose Level 117 Calcium Level 9.2 Medications Medication Current Medications Acetaminophen (Tylenol Tab) 650 mg Q4H PRN PO MILD PAIN(1-3)OR ELEVATED TEMP; Start 09/30/18 at 09:00 Acetaminophen/ Hydrocodone Bitart (Aragon (5/325)) 1 tab Q4H PRN PO MODERATE PAIN LEVEL 4-6; Start 09/30/18 at 09:00 Acetaminophen/ Hydrocodone Bitart (Aragon (5/325)) 2 tab Q4H PRN PO MODERATE PAIN LEVEL 4-6 Last administered on 10/03/18at 10:15; Admin Dose 2 TAB; Start 09/30/18 at 09:00 Ondansetron HCl (Zofran Inj) 4 mg Q6H PRN IV NAUSEA AND/OR VOMITING Last administered on 10/03/18at 10:16; Admin Dose 4 MG; Start 09/30/18 at 09:00 Hydromorphone HCl (Dilaudid) 1 mg Q3H PRN IV SEVERE PAIN LEVEL 7-10 Last administered on 10/01/18 12:21; Admin Dose 1 MG; Start 09/30/18 at 11:30 Zolpidem Tartrate (Ambien) 5 mg HS MAY REPEAT X 1 PRN PO INSOMNIA Last administered on 10/02/18 22:38; Admin Dose 5 MG; Start 09/30/18 at 20:30 Albuterol (Proventil 0.083% (Neb)) 2.5 mg Q6H RESP THERAPY PRN HHN SHORTNESS OF BREATH Last administered on 10/03/18 05:36; Admin Dose 2.5 MG; Start 10/01/18 a t 02:30 Metoprolol Tartrate (Lopressor) 25 mg DAILY PO Last administered on 10/03/18 09:29; Admin Dose 25 MG; Start 10/02/18 at 09:00 Non-Formulary Medication 2 ea BID INH Last administered on 10/03/18 09:46; Admin Dose 2 EA; Start 10/01/18 at 23:28 Non-Formulary Medication 2 ea BID PRN INH WHEEZING AND SOB; Start 10/01/18 at 23:45 Calcium Carbonate (Tums) 500 mg Q4H PRN PO HEARTBURN; Start 10/02/18 at 01:00 Nicotine (Nicoderm 14 Mg/ 24hr) 1 patch DAILY TRANSDERM Last administered on 10/03/18 09:36; Admin Dose 1 PATCH; Start 10/02/18 at 09:00 Pantoprazole (Protonix Tab) 40 mg BID@06,18 PO Last administered on 10/03/18 05:13; Admin Dose 40 MG; Start 10/02/18 at 18:00 Guaifenesin (Mucinex) 600 mg BID PO Last administered on 10/03/18 08:47; Admin Dose 600 MG; Start 10/02/18 at 21:00 Ceftriaxone Sodium 50 ml @ 100 mls/hr Q24H IVPB Last administered on 10/03/18 09:44; Admin Dose 100 MLS/HR; Start 10/03/18 at 10:00 Azithromycin (Zithromax) 250 mg DAILY PO ; Start 10/04/18 at 09:00 DANUTA ARAUJO Oct 03, 2018 13:40
[2018-10-03] MEDS ORDERED: ASPIRIN (EC) 81 MG TAB PO ONE (15:00)
[2018-10-03 16:45] VITALS: BP 170/68; PULSE 68; RESP 15
--- NOTE | 2018-10-03 17:05 | CONS ---
Consult Date/Type/Reason Admit Date/Time Oct 02, 2018 at 15:55 Initial Consult Date 10/02/18 Date/Time of Note DATE: 10/03/18 TIME: 17:04 Subjective No events. Objective Vitals Vital Signs Date Temp Pulse Resp B/P (MAP) Pulse Ox O2 O2 Flow FiO2 Time Delivery Rate 10/03/18 Nasal 2.0 09:00 Cannula 10/03/18 98.0 77 14 149/68 96 07:43 (95) Intake and Output 10/02/18 10/02/18 10/03/18 1515:00 23:00 07:00 IntakeIntake Total 1700 ml 1150 ml OutputOutput Total 150 ml 850 ml BalanceBalance 1550 ml 300 ml Exam HEENT: Neck supple; no JVD; no LAD CVS: RRR, S1 and S2 CHEST: Diminished BS B/L ABD: Soft, NT, + BS EXT: No c/c/e Results/Medications Result Diagram: 10/03/18 0438 10/03/18 0438 Results 24 hrs Laboratory Tests Test 10/03/18 04:38 White Blood Count 6.9 # Red Blood Count 4.02 L Hemoglobin 11.7 L Hematocrit 37.5 Mean Corpuscular Volume 93.3 Mean Corpuscular Hemoglobin 29.1 Mean Corpuscular Hemoglobin Concent 31.2 L Red Cell Distribution Width 16.3 H Platelet Count 244 Mean Platelet Volume 10.7 H Immature Granulocytes % 0.300 Neutrophils % 74.7 Lymphocytes % 12.0 L Monocytes % 8.8 Eosinophils % 3.3 Basophils % 0.9 Nucleated Red Blood Cells % 0.0 Immature Granulocytes # 0.020 Neutrophils # 5.2 Lymphocytes # 0.8 Monocytes # 0.6 Eosinophils # 0.2 Basophils # 0.1 Nucleated Red Blood Cells # 0.0 Sodium Level 140 Potassium Level 3.8 Chloride Level 104 Carbon Dioxide Level 31 Anion Gap 5 Blood Urea Nitrogen 8 Creatinine 0.54 Est Glomerular Filtrat Rate mL/min Glucose Level 117 Calcium Level 9.2 Home Meds Reported Medications Metoprolol Tartrate* (Lopressor*) 25 Mg Tab, 25 MG PO DAILY, #60 TAB 09/30/18 Omeprazole* (Omeprazole*) 10 Mg Capsule.dr, 10 MG PO DAILY, #30 CAP 09/30/18 Medications Current Medications Acetaminophen (Tylenol Tab) 650 mg Q4H PRN PO MILD PAIN(1-3)OR ELEVATED TEMP; Start 09/30/18 at 09:00 Ondansetron HCl (Zofran Inj) 4 mg Q6H PRN IV NAUSEA AND/OR VOMITING Last admin istered on 10/03/18 16:12; Admin Dose 4 MG; Start 09/30/18 at 09:00 Hydromorphone HCl (Dilaudid) 1 mg Q3H PRN IV SEVERE PAIN LEVEL 7-10 Last administered on 10/01/18 12:21; Admin Dose 1 MG; Start 09/30/18 at 11:30 Zolpidem Tartrate (Ambien) 5 mg HS MAY REPEAT X 1 PRN PO INSOMNIA Last administered on 10/02/18 22:38; Admin Dose 5 MG; Start 09/30/18 at 20:30 Albuterol (Proventil 0.083% (Neb)) 2.5 mg Q6H RESP THERAPY PRN HHN SHORTNESS OF BREATH Last administered on 10/03/18 05:36; Admin Dose 2.5 MG; Start 10/01/18 at 02:30 Metoprolol Tartrate (Lopressor) 25 mg DAILY PO Last administered on 10/03/18 09:29; Admin Dose 25 MG; Start 10/02/18 at 09:00 Non-Formulary Medication 2 ea BID INH Last administered on 10/03/18 09:46; Admin Dose 2 EA; Start 10/01/18 at 23:28 Non-Formulary Medication 2 ea BID PRN INH WHEEZING AND SOB Last administered on 10/03/18 16:12; Admin Dose 2 EA; Start 10/01/18 at 23:45 Calcium Carbonate (Tums) 500 mg Q4H PRN PO HEARTBURN; Start 10/02/18 at 01:00 Nicotine (Nicoderm 14 Mg/ 24hr) 1 patch DAILY TRANSDERM Last administered on 10/03/18 09:36; Admin Dose 1 PATCH; Start 10/02/18 at 09:00 Pantoprazole (Protonix Tab) 40 mg BID@06,18 PO Last administered on 10/03/18 05:13; Admin Dose 40 MG; Start 10/02/18 at 18:00 Guaifenesin (Mucinex) 600 mg BID PO Last administered on 4/28/19at 08:47; Admin Dose 600 MG; Start 10/02/18 at 21:00 Ceftriaxone Sodium 50 ml @ 100 mls/hr Q24H IVPB Last administered on 10/03/18at 09:44; Admin Dose 100 MLS/HR; Start 10/03/18 at 10:00 Azithromycin (Zithromax) 250 mg DAILY PO ; Start 10/04/18 at 09:00 Tramadol HCl (Ultram) 50 mg Q6H PRN PO MODERATE PAIN LEVEL 4-6; Start 10/03/18 at 16:30 Amlodipine Besylate (Norvasc) 5 mg BID PO ; Start 10/03/18 at 21:00 Assessment/Plan Assessment/Plan (Daily) IMP: 1. RML Ground Glass Opacity: Very low risk for slow growing lung adenocarcinoma. Based on Fleischner guidelines, would repeat CT scan in 6 - 12 months 2. Mild COPD Exacerbation 3. Infectious Bronchiolitis- r/o NTM such as MAC 4. Shoulder Fx RECS: 1. Repeat CT chest (non-con) in 6 to 12 months 2. Treat for COPD exacerbation with duonebs, short course of CS, and azithromycin 3. Consider sending sputa for AFB x 3 (for MAC) 4. Outpatient PFTs ISRRAEL LITTLE MD Oct 03, 2018 17:05
[2018-10-03] MEDS: traMADol 50 MG TAB PO PRN ×2 (17:29→23:01)
[2018-10-03 17:35] VITALS: BP 190/86; PULSE 78; RESP 18
[2018-10-03] MEDS ORDERED: hydrALAzine 20 MG INJ IV PRN (18:00)
[2018-10-03] MEDS ORDERED: AMLODIPINE 5 MG TAB PO SCH ×2 (18:00→21:00)
[2018-10-03 18:29] VITALS: BP 133/61; PULSE 82
[2018-10-03] MEDS: AMLODIPINE 5 MG TAB PO SCH (18:35)
[2018-10-03 20:51] VITALS: BP 139/63; PULSE 91; RESP 18
[2018-10-03] MEDS: CALCIUM CARBONATE 500 MG CHEW TAB PO PRN (21:06)
--- NOTE | 2018-10-03 22:13 | CONS ---
DATE OF ADMISSION: 10/02/2018 DATE OF CONSULTATION: 10/03/2018 TYPE OF CONSULTATION: Cardiology. REFERRING PHYSICIAN: Toney Del Cid MD REASON FOR EVALUATION: Coronary artery disease, precordial chest pain. HISTORY OF PRESENT ILLNESS: Ms. Tony is a 72-year-old woman with history of hypertension, dyslip idemia, history of COPD, history of lung adenocarcinoma with very low risk score with history of fall and fracture of the shoulder comes in hospital now for medical management. I have been asked to see patient in consultation because of her cardiac history. It appears that the patient has a history o f coronary artery disease. She had stenting here several years ago and then repeat stenting a year a go when she received a drug-eluting stent to unknown vessel. The patient was compliant with medical therapy. She was on presentation on Metoprolol titrate, although I do not see her being anticoagulat ed at this particular point. She says she has some chest discomfort, but further discussion appears to be more consistent with gastroesophageal reflux than true chest pain on presentation. The patient had elevated troponins in September 2015, but no troponins were checked this time. Currently, the patie nt is hemodynamically stable. We are going to check her troponins now. Also, there is no EKG in the chart, we are going to obtain EKG shortly. Other than that, we will probably follow the patient con servatively for now. It is still not clear to me if the surgery is planned, but based on Dr. Burleson's n ote for now, the plan is for immobilization and other than that, conservative therapy will be impleme nted. PAST MEDICAL HISTORY: 1. Hypertension. 2. Dyslipidemia. 3. History of COPD. 4. History of GERD. 5. Prior history of coronary artery disease. 6. Prior history of stenting as recently as less than a year ago. 7. History of falls. SOCIAL HISTORY: The patient smokes, does not drink, does not use any drugs. FAMILY HISTORY: Negative for sudden cardiac or premature coronary artery disease. MEDICATIONS: The patient is on: 1. Azithromycin. 2. Ceftriaxone. 3. Guaifenesin. 4. Pantoprazole. 5. Metoprolol tartrate 25 mg p.o. once a day. 6. Nicotine patch. 7. Albuterol. 8. Hydromorphone. She is not on any blood thinning medications. ALLERGY. THE PATIENT IS ALLERGIC TO SULFA DRUGS. REVIEW OF SYSTEMS: CONSTITUTIONAL: No fevers, no chills, no recent weight changes. CARDIAC: Chest pain reported now. RESPIRATORY: Short of breath this morning. GASTROINTESTINAL: GERD, bad reflux. GENITOURINARY: No dysuria, hematuria. NEUROLOGIC: No focal neurologic deficits. HEMATOLOGIC: No history for bleeding. PSYCHIATRIC: No anxiety. PHYSICAL EXAMINATION: VITAL SIGNS: Temperature is 98.0, heart rate 77 and blood pressure is 149/68. GENERAL: She is a thin woman in no acute distress, alert and oriented x3, aware of her condition. HEAD: Normocephalic, atraumatic. Eyes anicteric. NECK: Supple, JVD is 6-7 cm. There is no lymphadenopathy, no thyromegaly. HEART: Regular, soft holosystolic murmur. PMI is minimally displaced. There is no S3. LUNGS: Coarse to base. ABDOMEN: Distended, bowel sounds present. There is no hepatosplenomegaly. HEENT: Intact. EXTREMITIES: Show no clubbing, cyanosis. Trace edema. ____ left shoulder status post fracture. LABORATORY DATA: Sodium 140, potassium is 3.8, BUN is 8, creatinine 0.5. INR is 0.8. White blood c ells 6.9, hemoglobin 27, platelets 224. Chest CT shows a mass as described is ground glass opacity. ASSESSMENT AND PLAN: 1. Coronary disease. This patient has a history of coronary artery disease. It appears that she sheikh d a recent stenting, presumably drug-eluting stenting. The patient is not on any anticoagulation at this particular point, which is fairly unclear to me why that would be the case. I think for now, we are going to initiate patient on aspirin at least and confirmed why she was not on any anticoagulati on on presentation. We will follow 2D echo. 2. COPD. Continue to adjust medication to risk for treatment. 3. Mechanical fall, now with fracture. Conservative therapy is planned per discussion. 4. Lung mass. Per Dr. Hinds's note, slow growing. CT done, medical optimization expected. 5. Hypertension. We will closely monitor, well controlled. Continue to monitor clinically. I would like to thank Dr. Del Cid for referring this patient for my evaluation. Dictated By: ABI MASON MD ML/NTS Conf#: [id number] DID#: [id number] CC: TONEY DEL CID MD;*[facility]*
[2018-10-03] MEDS: ZOLPIDEM 5 MG TAB PO PRN (23:35)
--- NOTE | 2018-10-04 01:05 | RADRPT ---
Vent Rate: 85 bpm RR Interval: 708 msec IL Interval: 114 msec QRS Duration: 83 msec QT Interval: 401 msec QTC Interval: 477 msec P-R-T Bliss: 89 - 82 - 70 degrees Sinus rhythm...normal P axis, V-rate 50- 99 Electronically Signed By: Richard Renee
[2018-10-04 02:16] VITALS: BP 138/75; PULSE 98; RESP 18
[2018-10-04] MEDS: PANTOPRAZOLE (EC) 40 MG TAB PO SCH ×2 (05:58→17:35)
[2018-10-04] MEDS: traMADol 50 MG TAB PO PRN ×3 (05:58→22:33)
[2018-10-04] MEDS: CALCIUM CARBONATE 500 MG CHEW TAB PO PRN (06:03)
[2018-10-04 08:00] VITALS: BP 115/69; PULSE 104; RESP 17
[2018-10-04] MEDS: GUAIFENESIN LA 600 MG TABSR PO SCH ×2 (09:00→21:00)
[2018-10-04] MEDS: AZITHROMYCIN 250 MG TAB PO SCH (09:25)
[2018-10-04] MEDS: NICOTINE (14 MG/24 HR) PATCH TRANSDERM SCH (09:25)
[2018-10-04] MEDS: METOPROLOL 25 MG TAB PO SCH ×2 (09:28→21:10)
[2018-10-04] MEDS: AMLODIPINE 5 MG TAB PO SCH ×2 (09:28→21:11)
[2018-10-04] MEDS: ALBUTEROL 0.083% (NEB) 2.5 MG/3 ML AMP HHN PRN ×2 (09:36→22:14)
[2018-10-04] MEDS: SPECIAL NON-STANDARD MEDICATION INH SCH ×2 (09:59→21:09)
[2018-10-04] MEDS: CEFTRIAXONE 1 GM/50 ML (PMX) 50 ML IVPB SCH (09:59)
--- NOTE | 2018-10-04 11:18 | CONS ---
Assessment/Plan Assessment/Plan Hospital Course (Demo Recall) 72 yo F with PMH of COPD/emhysema, history of recurrent pneumonias, GERD and CAD s/p IN who is admitted for a ground level mechanical fall resulting in a left proximal humerus fracture. Patient also had cough and CT scan showed a RML ground glass nodule of 5.4 mm. # RML ground glass lesion -It is quite small and this nodule could be inflammatory from her COPD and bronchopneumonia. -It is too small to safely biopsy at this point in time. -I would repeat another scan in 3 months after pneumonia resolved to see if this nodule is still present. -No need for inpatient work up at this time. -Patient has been seeing outpatient Dr. Mackey and thus she can follow with him as well for previous LLL surgery. # Left proximal humerus fracture -Ortho on board and patient is in a sling. Thank you to Dr. Del Cid for allowing me to participate in the care of this patient. A total of 40 minutes was spent in consultation with the patient and patient's questions were answered. Consultation Date/Type/Reason Admit Date/Time Oct 02, 2018 at 15:55 Initial Consult Date 10/02/18 Type of Consult oncology Reason for Consultation lung mass Requesting Provider: TONEY DEL CID MD Date/Time of Note DATE: 10/04/18 TIME: 11:15 24 HR Interval Summary Free Text/Dictation no acute overnight events Exam/Review of Systems Exam Vitals Vital Signs Date Temp Pulse Resp B/P (MAP) Pulse Ox O2 O2 Flow FiO2 Time Delivery Rate 10/04/18 102 16 98 Nasal 2.0 09:37 Cannula 10/04/18 98.0 115/69 08:00 (84) Intake and Output 10/03/18 10/03/18 10/04/18 1515:00 23:00 07:00 IntakeIntake Total 825 ml 410 ml 100 ml BalanceBalance 825 ml 410 ml 100 ml Constitutional: alert, oriented, frail Head: normocephalic Eyes: nl conjunctiva ENMT: nl external ears & nose Neck: supple Respiratory: clear to auscultation Cardiovascular: regular rate and rhythm Gastrointestinal: soft Extremities: other (arm in brace) Results Result Diagram: 10/03/18 0438 10/03/18 043 Medications Medication Current Medications Acetaminophen (Tylenol Tab) 650 mg Q4H PRN PO MILD PAIN(1-3)OR ELEVATED TEMP; Start 09/30/18 at 09:00 Ondansetron HCl (Zofran Inj) 4 mg Q6H PRN IV NAUSEA AND/OR VOMITING Last administered on 10/03/18 16:12; Admin Dose 4 MG; Start 09/30/18 at 09:00 Hydromorphone HCl (Dilaudid) 1 mg Q3H PRN IV SEVERE PAIN LEVEL 7-10 Last administered on 10/01/18 12:21; Admin Dose 1 MG; Start 09/30/18 at 11:30 Zolpidem Tartrate (Ambien) 5 mg HS MAY REPEAT X 1 PRN PO INSOMNIA Last administered on 10/03/18 23:35; Admin Dose 5 MG; Start 09/30/18 at 20:30 Albuterol (Proventil 0.083% (Neb)) 2.5 mg Q6H RESP THERAPY PRN HHN SHORTNESS OF BREATH Last administered on 10/04/18 09:36; Admin Dose 2.5 MG; Start 10/01/18 at 02:30 Metoprolol Tartrate (Lopressor) 25 mg DAILY PO Last administered on 10/04/18 09:28; Admin Dose 25 MG; Start 10/02/18 at 09:00 Non-Formulary Medication 2 ea BID INH Last administered on 10/04/18 09:59; Admin Dose 2 EA; Start 10/01/18 at 23:28 Non-Formulary Medication 2 ea BID PRN INH WHEEZING AND SOB Last administered on 10/03/18 16:12; Admin Dose 2 EA; Start 10/01/18 at 23:45 Calcium Carbonate (Tums) 500 mg Q4H PRN PO HEARTBURN Last administered on 10/04/18 06:03; Admin Dose 500 MG; Start 10/02/18 at 01:00 Nicotine (Nicoderm 14 Mg/ 24hr) 1 patch DAILY TRANSDERM Last administered on 10/04/18 09:25; Admin Dose 1 PATCH; Start 10/02/18 at 09:00 Pantoprazole (Protonix Tab) 40 mg BID@,18 PO Last administered on 10/04/18 05:58; Admin Dose 40 MG; Start 10/02/18 at 18:00 Guaifenesin (Mucinex) 600 mg BID PO Last administered on 10/03/18 08:47; Admin Dose 600 MG; Start 10/02/18 at 21:00 Ceftriaxone Sodium 50 ml @ 100 mls/hr Q24H IVPB Last administered on 10/04/18 09:59; Admin Dose 100 MLS/HR; Start 10/03/18 at 10:00 Azithromycin (Zithromax) 250 mg DAILY PO Last administered on 10/04/18 09:25; Admin Dose 250 MG; Start 10/04/18 at 09:00 Tramadol HCl (Ultram) 50 mg Q6H PRN PO MODERATE PAIN LEVEL 4-6 Last administered on 10/04/18 05:58; Admin Dose 50 MG; Start 10/03/18 at 16:30 Hydralazine HCl (Apresoline) 10 mg Q4H PRN IV ELEVATED BLOOD PRESSURE Last administered on 10/03/18 17:51; Admin Dose 10 MG; Start 10/03/18 at 18:00 Amlodipine Besylate (Norvasc) 5 mg BID PO Last administered on 10/04/18 09:28; Admin Dose 5 MG; Start 10/03/18 at 18:00 KIA MCKEON M.D. Oct 04, 2018 11:18
--- NOTE | 2018-10-04 12:51 | CONS ---
Assessment/Plan Assessment/Plan Hospital Course (Demo Recall) IMP: 1.H/O stent-per patient last placed 06/2016-took plavix x 6 months. self d/c'd asa due to easy brusing 2.s/p fall-? mechanical 3.HTN 4. Humeral fx 5.H/O CA 2006? 6.tobacco dependence Recc: -Continue baby asa as tolerated -Continue norvasc/BB -Continue abx's and f/u cx data -Pain control -Ongoing ortho eval -check echo Consultation Date/Type/Reason Admit Date/Time Oct 02, 2018 at 15:55 Initial Consult Date 10/02/18 Type of Consult Cardiology Reason for Consultation H/O stent Requesting Provider: TONEY DEL CID MD Date/Time of Note DATE: 10/04/18 TIME: 12:46 Exam/Review of Systems Vital Signs Vitals Vital Signs Date Temp Pulse Resp B/P (MAP) Pulse Ox O2 O2 Flow FiO2 Time Delivery Rate 10/04/18 102 16 98 Nasal 2.0 09:37 Cannula 10/04/18 98.0 115/69 08:00 (84) Intake and Output 10/03/18 10/03/18 10/04/18 1515:00 23:00 07:00 IntakeIntake Total 825 ml 410 ml 100 ml BalanceBalance 825 ml 410 ml 100 ml Exam Exam Review of Systems: CONSTITUTIONAL: No fevers, chills. PULMONARY: No sob CARDIOVASCULAR: No chest pain/palpitations GASTROINTESTINAL: No nausea/vomiting. GENITOURINARY: No hematuria/dysuria. MUSCULOSKELETAL: pain in arm PSYCHIATRIC: The patient denies depression. NEUROLOGIC: No weakness Constitutional: alert Psych: no complaints Head: normocephalic ENMT: mucosa pink and moist Neck: supple, jvd (9 cm water) Respiratory: diminished breath sounds (at bases/B) Cardiovascular: regular rate and rhythm Gastrointestinal: soft, non-tender Musculoskeletal: muscle tone (normal) Extremities: edema (nonw), other (eccymposis of arms/Bilateral) Neurological: other (No focal deficits) Labs Result Diagram: 10/03/18 0438 10/03/18 0438 Medications Medications Current Medications Acetaminophen (Tylenol Tab) 650 mg Q4H PRN PO MILD PAIN(1-3)OR ELEVATED TEMP; Start 09/30/18 at 09:00 Ondansetron HCl (Zofran Inj) 4 mg Q6H PRN IV NAUSEA AND/OR VOMITING Last administered on 10/03/18 16:12; Admin Dose 4 MG; Start 09/30/18 at 09:00 Hydromorphone HCl (Dilaudid) 1 mg Q3H PRN IV SEVERE PAIN LEVEL 7-10 Last administered on 10/01/18 12:21; Admin Dose 1 MG; Start 09/30/18 at 11:30 Zolpidem Tartrate (Ambien) 5 mg HS MAY REPEAT X 1 PRN PO INSOMNIA Last administered on 10/03/18 23:35; Admin Dose 5 MG; Start 09/30/18 at 20:30 Albuterol (Proventil 0.083% (Neb)) 2.5 mg Q6H RESP THERAPY PRN HHN SHORTNESS OF BREATH Last administered on 10/04/18 09:36; Admin Dose 2.5 MG; Start 10/01/18 at 02:30 Metoprolol Tartrate (Lopressor) 25 mg DAILY PO Last administered on 10/04/18 09:28; Admin Dose 25 MG; Start 10/02/18 at 09:00 Non-Formulary Medication 2 ea BID INH Last administered on 10/04/18 09:59; Admin Dose 2 EA; Start 10/01/18 at 23:28 Non-Formulary Medication 2 ea BID PRN INH WHEEZING AND SOB Last administered on 10/03/18 16:12; Admin Dose 2 EA; Start 10/01/18 at 23:45 Calcium Carbonate (Tums) 500 mg Q4H PRN PO HEARTBURN Last administered on 10/04/18 06:03; Admin Dose 500 MG; Start 10/02/18 at 01:00 Nicotine (Nicoderm 14 Mg/ 24hr) 1 patch DAILY TRANSDERM Last administered on 10/04/18 09:25; Admin Dose 1 PATCH; Start 10/02/18 at 09:00 Pantoprazole (Protonix Tab) 40 mg BID@06,18 PO Last administered on 10/04/18 05:58; Admin Dose 40 MG; Start 10/02/18 at 18:00 Guaifenesin (Mucinex) 600 mg BID PO Last administered on 10/03/18 08:47; Admin Dose 600 MG; Start 10/02/18 at 21:00 Ceftriaxone Sodium 50 ml @ 100 mls/hr Q24H IVPB Last administered on 10/04/18 09:59; Admin Dose 100 MLS/HR; Start 10/03/18 at 10:00 Azithromycin (Zithromax) 250 mg DAILY PO Last administered on 10/04/18 09:25; Admin Dose 250 MG; Start 10/04/18 at 09:00 Tramadol HCl (Ultram) 50 mg Q6H PRN PO MODERATE PAIN LEVEL 4-6 Last administered on 10/04/18 05:58; Admin Dose 50 MG; Start 10/03/18 at 16:30 Hydralazine HCl (Apresoline) 10 mg Q4H PRN IV ELEVATED BLOOD PRESSURE Last administered on 10/03/18 17:51; Admin Dose 10 MG; Start 10/03/18 at 18:00 Amlodipine Besylate (Norvasc) 5 mg BID PO Last administered on 10/04/18 09:28; Admin Dose 5 MG; Start 10/03/18 at 18:00 SAMANTHA LEONARD Oct 04, 2018 12:51
[2018-10-04 14:10] VITALS: BP 128/62; PULSE 82; RESP 18
--- NOTE | 2018-10-04 17:38 | RADRPT ---
Echocardiogram Report Patient Name: ALIYA PATIÑOYPatient ID: [id number] : 4 (73y )Study Date: 10/04/2018 1:47:26 PM Gender: FAccession #: [id number] Tech: Denisse Terry [facility] Location: [id number] Ref.Physician: SAMANTHA STRICKLAND Height(Cm): BSA: Weight(Kg): Quality: AdequateAccount #: Procedures: Echocardiographic Report: Transthoracic echocardiogram with complete 2D, M-Mode, and doppler examination. Indications: h/o stents. Measurements: 2D/M Mode Doppler Measurement Value Normal Range Measurement Value Normal Range LVIDd 2D 3.8 [ 3.8 - 5.2 ] cm AV Peak Melvin 1.2 [ 100.0 - 170.0 ] cm/sec LVIDs 2D 2.1 [ 2.2 - 3.5 ] cm AV Peak PG 5.0 [ 2.0 - 9.0 ] mmHg LVPWd 2D 1.1 [ 0.6 - 0.9 ] cm LVOT Peak Melvin 0.9 [ 70.0 - 110.0 ] cm/sec IVSd 2D 1.0 [ 0.6 - 0.9 ] cm LVOT Peak PG 4.0 [ 2.0 - 6.0 ] mmHg AoR Diam 2D 2.6 [ 2.3 - 3.1 ] cm MV E Peak Melvin 0.9 [ 60.0 - 130.0 ] cm/sec EDV 2D 63.5 [ 46.0 - 106.0 ] ml MV A Peak Melvin 1.0 [ 100.0 - 120.0 ] cm/sec ESV 2D 13.9 [ 14.0 - 42.0 ] ml MV E/A 0.8 [ 0.8 - 1.5 ] ratio EF 2D 78.1 [ 54.0 - 74.0 ] percent MV Decel Time 201 [ 104 - 258 ] msec LA Dimen 2D 3.3 [ 2.7 - 3.8 ] cm Lat E` Melvin 0.1 [ 10.0 - 15.0 ] cm/sec Lateral E/E` 11.9 [ 1.0 - 2.0 ] ratio MV E/A 0.8 [ 0.8 - 1.5 ] ratio TR Peak Melvin 1.8 [ 100.0 - 280.0 ] cm/sec TR Peak PG 12.0 mmHg RVSP 15.0 [ 10.0 - 36.0 ] mmHg RA Pressure 3.0 mmHg Findings: Left Ventricle: Normal left ventricular systolic function. Normal left ventricular cavity size. Mild concentric left ventricular hypertrophy. Ejection fraction is visually estimated at 55 %. Tissue Doppler/Mitral Doppler indices are consistent with impaired relaxation (Stage I diastolic dysfunction). Right Ventricle: Normal right ventricular size. Normal right ventricular systolic function. Left Atrium: The left atrium is normal in size. Right Atrium: The right atrium is normal in size. Mitral Valve: Normal appearance of the mitral valve. Mild mitral annular calcification. Trace mitral regurgitation. Aortic Valve: Normal appearance of the aortic valve. No significant aortic stenosis or insufficiency. Tricuspid Valve: Normal appearance of the tricuspid valve. Estimated peak PA systolic pressure 15 mmHg. There is trace tricuspid regurgitation. Pulmonic Valve: Pulmonic valve not well visualized. Pericardium: Normal pericardium with no significant pericardial effusion. Aorta: Normal aortic root. IVC: Normal size and normal respiratory collapse consistent with normal right atrial pressure. Conclusions: Normal left ventricular systolic function. Normal left ventricular cavity size. Mild concentric left ventricular hypertrophy. Ejection fraction is visually estimated at 55 %. Tissue Doppler/Mitral Doppler indices are consistent with impaired relaxation (Stage I diastolic dysfunction). Normal appearance of the mitral valve. Mild mitral annular calcification. Trace mitral regurgitation. Normal appearance of the tricuspid valve. Estimated peak PA systolic pressure 15 mmHg. There is trace tricuspid regurgitation. Electronically Signed By: Samantha Strickland 2018-10-04 17:38:05 PDT
[2018-10-04] MEDS ORDERED: MAGNESIUM HYDROXIDE 30ML CUP PO ONE (18:00)
[2018-10-04] MEDS ORDERED: BISACODYL (EC) 5 MG TAB PO PRN (18:30)
[2018-10-04 20:16] VITALS: BP 138/66; PULSE 87; RESP 18
[2018-10-04] MEDS: DOCUSATE SODIUM 100 MG CAP PO SCH (21:00)
[2018-10-04] MEDS: ZOLPIDEM 5 MG TAB PO PRN (23:40)
[2018-10-05 02:44] VITALS: BP 146/77; PULSE 84; RESP 18
--- NOTE | 2018-10-05 03:26 | PN ---
Date/Time of Note Date/Time of Note DATE: 10/05/18 TIME: 03:20 Assessment/Plan VTE Prophylaxis Risk score (from Ns)>0 risk: 4 SCD applied (from [facility]): Yes SCD contraindicated: other Pharmacological prophylaxis: other Pharm contraindication: other Lines/Catheters IV Catheter Type (from Nrsg): Saline Lock Urinary Cath still in place: No Assessment/Plan Assessment/Plan - Fracture of the left proximal humerus. 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 - patient had shortness of breath at times - cardiology consult - SCD - Patient niece- Anthony Lin at [phone] - updated by Dr Awan regarding her status. dW Dr Awan Result Diagram: 10/04/18185610/04/181856 Results 24hrs Laboratory Tests Test 10/04/18 18:57 White Blood Count 7.6 Red Blood Count 4.31 Hemoglobin 12.4 Hematocrit 38.8 Mean Corpuscular Volume 90.0 Mean Corpuscular Hemoglobin 28.8 L Mean Corpuscular Hemoglobin Concent 32.0 Red Cell Distribution Width 16.5 H Platelet Count 293 # Mean Platelet Volume 10.2 Immature Granulocytes % 0.300 Neutrophils % 77.6 H Lymphocytes % 10.2 L Monocytes % 8.5 Eosinophils % 2.9 Basophils % 0.5 Nucleated Red Blood Cells % 0.0 Immature Granulocytes # 0.020 Neutrophils # 5.9 Lymphocytes # 0.8 Monocytes # 0.7 Eosinophils # 0.2 Basophils # 0.0 Nucleated Red Blood Cells # 0.0 Sodium Level 139 Potassium Level 3.7 Chloride Level 103 Carbon Dioxide Level 30 Anion Gap 6 Blood Urea Nitrogen 16 Creatinine 0.67 Est Glomerular Filtrat Rate mL/min Glucose Level 109 Calcium Level 9.6 Subjective 24 Hr Interval Summary Free Text/Dictation 10/04/2018 Entry - NAD Feels better; effective pain control PT as tolerated afebrile no new events reported by staff Constitutional: improved Eyes: no complaints ENT: no complaints Respiratory: no complaints Cardiovascular: no complaints Gastrointestinal: no complaints Musculoskeletal: bone/joint pain, restricted range of motion Skin: no complaints Neurologic: no complaints Endocrine: no complaints Lymphatic: no complaints Psychological: nl mood/affect Immunologic: no complaints Exam/Review of Systems Exam Vitals Vital Signs Date Temp Pulse Resp B/P (MAP) Pulse Ox O2 O2 Flow FiO2 Time Delivery Rate 10/05/18 98.2 84 18 146/77 94 Room Air 02:44 (100) 10/04/18 21 22:14 10/04/18 2.0 15:01 Intake and Output 10/04/18 10/04/18 10/05/18 1515:00 23:00 07:00 IntakeIntake Total 250 ml 50 ml 430 ml BalanceBalance 250 ml 50 ml 430 ml Constitutional: alert, well developed Psych: nl mood/affect Head: normocephalic Eyes: nl lids, nl sclera ENMT: nl external ears & nose Neck: non-tender Respiratory: diminished breath sounds (left side 2/2 position of lef arm) Cardiovascular: nl pulses, other (s1s2) Musculoskeletal: nl extremities to inspection Extremities: normal pulses Neurological: nl mental status, nl speech Lymph: nontender Results Results 24hrs Laboratory Tests Test 10/04/18 18:57 White Blood Count 7.6 Red Blood Count 4.31 Hemoglobin 12.4 Hematocrit 38.8 Mean Corpuscular Volume 90.0 Mean Corpuscular Hemoglobin 28.8 L Mean Corpuscular Hemoglobin Concent 32.0 Red Cell Distribution Width 16.5 H Platelet Count 293 # Mean Platelet Volume 10.2 Immature Granulocytes % 0.300 Neutrophils % 77.6 H Lymphocytes % 10.2 L Monocytes % 8.5 Eosinophils % 2.9 Basophils % 0.5 Nucleated Red Blood Cells % 0.0 Immature Granulocytes # 0.020 Neutrophils # 5.9 Lymphocytes # 0.8 Monocytes # 0.7 Eosinophils # 0.2 Basophils # 0.0 Nucleated Red Blood Cells # 0.0 Sodium Level 139 Potassium Level 3.7 Chloride Level 103 Carbon Dioxide Level 30 Anion Gap 6 Blood Urea Nitrogen 16 Creatinine 0.67 Est Glomerular Filtrat Rate mL/min Glucose Level 109 Calcium Level 9.6 Medications Medication Current Medications Acetaminophen (Tylenol Tab) 650 mg Q4H PRN PO MILD PAIN(1-3)OR ELEVATED TEMP; Start 09/30/18 at 09:00 Ondansetron HCl (Zofran Inj) 4 mg Q6H PRN IV NAUSEA AND/OR VOMITING Last administered on 10/03/18 16:12; Admin Dose 4 MG; Start 09/30/18 at 09:00 Hydromorphone HCl (Dilaudid) 1 mg Q3H PRN IV SEVERE PAIN LEVEL 7-10 Last administered on 10/01/18 12:21; Admin Dose 1 MG; Start 09/30/18 at 11:30 Zolpidem Tartrate (Ambien) 5 mg HS MAY REPEAT X 1 PRN PO INSOMNIA Last administered on 10/04/18 23:40; Admin Dose 5 MG; Start 09/30/18 at 20:30 Albuterol (Proventil 0.083% (Neb)) 2.5 mg Q6H RESP THERAPY PRN HHN SHORTNESS OF BREATH Last administered on 10/04/18 22:14; Admin Dose 2.5 MG; Start 10/01/18 at 02:30 Non-Formulary Medication 2 ea BID INH Last administered on 10/04/18 21:09; Admin Dose 2 EA; Start 10/01/18 at 23:28 Non-Formulary Medication 2 ea BID PRN INH WHEEZING AND SOB Last administered on 10/03/18 16:12; Admin Dose 2 EA; Start 10/01/18 at 23:45 Calcium Carbonate (Tums) 500 mg Q4H PRN PO HEARTBURN Last administered on 10/04/18 06:03; Admin Dose 500 MG; Start 10/02/18 at 01:00 Nicotine (Nicoderm 14 Mg/ 24hr) 1 patch DAILY TRANSDERM Last administered on 10/04/18 09:25; Admin Dose 1 PATCH; Start 10/02/18 at 09:00 Pantoprazole (Protonix Tab) 40 mg BID@06,18 PO Last administered on 10/04/18 17:35; Admin Dose 40 MG; Start 10/02/18 at 18:00 Guaifenesin (Mucinex) 600 mg BID PO Last administered on 10/03/18 08:47; Admin Dose 600 MG; Start 10/02/18 at 21:00 Ceftriaxone Sodium 50 ml @ 100 mls/hr Q24H IVPB Last administered on 10/04/18 09:59; Admin Dose 100 MLS/HR; Start 10/03/18 at 10:00 Azithromycin (Zithromax) 250 mg DAILY PO Last administered on 10/04/18 09:25; Admin Dose 250 MG; Start 10/04/18 at 09:00 Tramadol HCl (Ultram) 50 mg Q6H PRN PO MODERATE PAIN LEVEL 4-6 Last administered on 10/04/18at 22:33; Admin Dose 50 MG; Start 10/03/18 at 16:30 Hydralazine HCl (Apresoline) 10 mg Q4H PRN IV ELEVATED BLOOD PRESSURE Last administered on 10/03/18at 17:51; Admin Dose 10 MG; Start 10/03/18 at 18:00 Amlodipine Besylate (Norvasc) 5 mg BID PO Last administered on 10/04/18at 21:11; Admin Dose 5 MG; Start 10/03/18 at 18:00 Metoprolol Tartrate (Lopressor) 25 mg BID PO Last administered on 10/04/18at 21:10; Admin Dose 25 MG; Start 10/04/18 at 21:00 Aspirin (Aspirin) 81 mg DAILY PO ; Start 10/05/18 at 09:00 Docusate Sodium (Colace) 100 mg BID PO ; Start 10/04/18 at 21:00 Bisacodyl (Dulcolax) 10 mg DAILY PRN PO CONSTIPATION; Start 10/04/18 at 18:30 DANUTA ARAUJO Oct 05, 2018 03:26
--- NOTE | 2018-10-05 04:06 | PN ---
Date/Time of Note Date/Time of Note DATE: 10/05/18 TIME: 03:28 Assessment/Plan VTE Prophylaxis Risk score (from Ns)>0 risk: 4 SCD applied (from Ns): Yes Lines/Catheters IV Catheter Type (from [facility]): Saline Lock Urinary Cath still in place: No Assessment/Plan Result Diagram: 10/04/18185610/04/187 Results 24hrs Laboratory Tests Test 10/04/18 18:57 White Blood Count 7.6 Red Blood Count 4.31 Hemoglobin 12.4 Hematocrit 38.8 Mean Corpuscular Volume 90.0 Mean Corpuscular Hemoglobin 28.8 L Mean Corpuscular Hemoglobin Concent 32.0 Red Cell Distribution Width 16.5 H Platelet Count 293 # Mean Platelet Volume 10.2 Immature Granulocytes % 0.300 Neutrophils % 77.6 H Lymphocytes % 10.2 L Monocytes % 8.5 Eosinophils % 2.9 Basophils % 0.5 Nucleated Red Blood Cells % 0.0 Immature Granulocytes # 0.020 Neutrophils # 5.9 Lymphocytes # 0.8 Monocytes # 0.7 Eosinophils # 0.2 Basophils # 0.0 Nucleated Red Blood Cells # 0.0 Sodium Level 139 Potassium Level 3.7 Chloride Level 103 Carbon Dioxide Level 30 Anion Gap 6 Blood Urea Nitrogen 16 Creatinine 0.67 Est Glomerular Filtrat Rate mL/min Glucose Level 109 Calcium Level 9.6 Subjective 24 Hr Interval Summary Respiratory: no complaints Cardiovascular: no complaints Gastrointestinal: no complaints Musculoskeletal: bone/joint pain, restricted range of motion Skin: no complaints Endocrine: no complaints Psychological: nl mood/affect Exam/Review of Systems Exam Vitals Vital Signs Date Temp Pulse Resp B/P (MAP) Pulse Ox O2 O2 Flow FiO2 Time Delivery Rate 10/05/18 98.2 84 18 146/77 94 Room Air 02:44 (100) 10/04/18 21 22:14 10/04/18 2.0 15:01 Intake and Output 10/04/18 10/04/18 10/05/18 1515:00 23:00 07:00 IntakeIntake Total 250 ml 50 ml 430 ml BalanceBalance 250 ml 50 ml 430 ml Results Results 24hrs Laboratory Tests Test 10/04/18 18:57 White Blood Count 7.6 Red Blood Count 4.31 Hemoglobin 12.4 Hematocrit 38.8 Mean Corpuscular Volume 90.0 Mean Corpuscular Hemoglobin 28.8 L Mean Corpuscular Hemoglobin Concent 32.0 Red Cell Distribution Width 16.5 H Platelet Count 293 # Mean Platelet Volume 10.2 Immature Granulocytes % 0.300 Neutrophils % 77.6 H Lymphocytes % 10.2 L Monocytes % 8.5 Eosinophils % 2.9 Basophils % 0.5 Nucleated Red Blood Cells % 0.0 Immature Granulocytes # 0.020 Neutrophils # 5.9 Lymphocytes # 0.8 Monocytes # 0.7 Eosinophils # 0.2 Basophils # 0.0 Nucleated Red Blood Cells # 0.0 Sodium Level 139 Potassium Level 3.7 Chloride Level 103 Carbon Dioxide Level 30 Anion Gap 6 Blood Urea Nitrogen 16 Creatinine 0.67 Est Glomerular Filtrat Rate mL/min Glucose Level 109 Calcium Level 9.6 Medications Medication Current Medications Acetaminophen (Tylenol Tab) 650 mg Q4H PRN PO MILD PAIN(1-3)OR ELEVATED TEMP; Start 09/30/18 at 09:00 Ondansetron HCl (Zofran Inj) 4 mg Q6H PRN IV NAUSEA AND/OR VOMITING Last administered on 10/03/18 16:12; Admin Dose 4 MG; Start 09/30/18 at 09:00 Hydromorphone HCl (Dilaudid) 1 mg Q3H PRN IV SEVERE PAIN LEVEL 7-10 Last administered on 10/01/18 12:21; Admin Dose 1 MG; Start 09/30/18 at 11:30 Zolpidem Tartrate (Ambien) 5 mg HS MAY REPEAT X 1 PRN PO INSOMNIA Last administered on 10/04/18 23:40; Admin Dose 5 MG; Start 09/30/18 at 20:30 Albuterol (Proventil 0.083% (Neb)) 2.5 mg Q6H RESP THERAPY PRN HHN SHORTNESS OF BREATH Last administered on 10/04/18 22:14; Admin Dose 2.5 MG; Start 10/01/18 at 02:30 Non-Formulary Medication 2 ea BID INH Last administered on 10/04/18 21:09; Admin Dose 2 EA; Start 10/01/18 at 23:28 Non-Formulary Medication 2 ea BID PRN INH WHEEZING AND SOB Last administered on 10/03/18 16:12; Admin Dose 2 EA; Start 10/01/18 at 23:45 Calcium Carbonate (Tums) 500 mg Q4H PRN PO HEARTBURN Last administered on 10/04/18 06:03; Admin Dose 500 MG; Start 10/02/18 at 01:00 Nicotine (Nicoderm 14 Mg/ 24hr) 1 patch DAILY TRANSDERM Last administered on 10/04/18 09:25; Admin Dose 1 PATCH; Start 10/02/18 at 09:00 Pantoprazole (Protonix Tab) 40 mg BID@06,18 PO Last administered on 10/04/18 17:35; Admin Dose 40 MG; Start 10/02/18 at 18:00 Guaifenesin (Mucinex) 600 mg BID PO Last administered on 10/03/18 08:47; Admin Dose 600 MG; Start 10/02/18 at 21:00 Ceftriaxone Sodium 50 ml @ 100 mls/hr Q24H IVPB Last administered on 10/04/18 09:59; Admin Dose 100 MLS/HR; Start 10/03/18 at 10:00 Azithromycin (Zithromax) 250 mg DAILY PO Last administered on 10/04/18 09:25; Admin Dose 250 MG; Start 10/04/18 at 09:00 Tramadol HCl (Ultram) 50 mg Q6H PRN PO MODERATE PAIN LEVEL 4-6 Last administered on 10/04/18 22:33; Admin Dose 50 MG; Start 10/03/18 at 16:30 Hydralazine HCl (Apresoline) 10 mg Q4H PRN IV ELEVATED BLOOD PRESSURE Last administered on 10/03/18 17:51; Admin Dose 10 MG; Start 10/03/18 at 18:00 Amlodipine Besylate (Norvasc) 5 mg BID PO Last administered on 10/04/18 21:11; Admin Dose 5 MG; Start 10/03/18 at 18:00 Metoprolol Tartrate (Lopressor) 25 mg BID PO Last administered on 10/04/18 21:10; Admin Dose 25 MG; Start 10/04/18 at 21:00 Aspirin (Aspirin) 81 mg DAILY PO ; Start 10/05/18 at 09:00 Docusate Sodium (Colace) 100 mg BID PO ; Start 10/04/18 at 21:00 Bisacodyl (Dulcolax) 10 mg DAILY PRN PO CONSTIPATION; Start 10/04/18 at 18:30 DANUTA ARAUJO Oct 05, 2018 03:38
[2018-10-05] MEDS: PANTOPRAZOLE (EC) 40 MG TAB PO SCH ×2 (06:20→17:53)
[2018-10-05] MEDS: traMADol 50 MG TAB PO PRN ×3 (06:24→19:19)
[2018-10-05 08:23] VITALS: BP 126/70; PULSE 92; RESP 18
[2018-10-05] MEDS: GUAIFENESIN LA 600 MG TABSR PO SCH (09:00)
[2018-10-05] MEDS ORDERED: ASPIRIN 81 MG TAB PO SCH (09:00)
[2018-10-05] MEDS: SPECIAL NON-STANDARD MEDICATION INH SCH (09:00)
[2018-10-05] MEDS: AZITHROMYCIN 250 MG TAB PO SCH (09:28)
[2018-10-05] MEDS: DOCUSATE SODIUM 100 MG CAP PO SCH (09:28)
[2018-10-05] MEDS: METOPROLOL 25 MG TAB PO SCH (09:29)
[2018-10-05] MEDS: AMLODIPINE 5 MG TAB PO SCH (09:29)
[2018-10-05] MEDS: NICOTINE (14 MG/24 HR) PATCH TRANSDERM SCH (09:30)
[2018-10-05] MEDS: CEFTRIAXONE 1 GM/50 ML (PMX) 50 ML IVPB SCH (09:30)
[2018-10-05] MEDS: ALBUTEROL 0.083% (NEB) 2.5 MG/3 ML AMP HHN PRN (09:48)
--- NOTE | 2018-10-05 12:02 | CONS ---
Assessment/Plan Assessment/Plan Hospital Course (Demo Recall) 72 yo F with PMH of COPD/emhysema, history of recurrent pneumonias, GERD and CAD s/p IL who is admitted for a ground level mechanical fall resulting in a left proximal humerus fracture. Patient also had cough and CT scan showed a RML ground glass nodule of 5.4 mm. # RML ground glass lesion -It is quite small and this nodule could be inflammatory from her COPD and bronchopneumonia. -It is too small to safely biopsy at this point in time. -I would repeat another scan in 3 months after pneumonia resolved to see if this nodule is still present. -No need for inpatient work up at this time. -Patient has been seeing outpatient Dr. Mackey and thus she can follow with him as well for previous LLL surgery. # Left proximal humerus fracture -Ortho on board and patient is in a sling. Thank you to Dr. Del Cid for allowing me to participate in the care of this patient. A total of 40 minutes was spent in consultation with the patient and patient's questions were answered. Consultation Date/Type/Reason Admit Date/Time Oct 02, 2018 at 15:55 Initial Consult Date 10/02/18 Type of Consult oncology Reason for Consultation lung nodule Requesting Provider: TONEY DEL CID MD Date/Time of Note DATE: 10/05/18 TIME: 11:56 24 HR Interval Summary Free Text/Dictation no acute overnight events Exam/Review of Systems Exam Vitals Vital Signs Date Temp Pulse Resp B/P (MAP) Pulse Ox O2 O2 Flow FiO2 Time Delivery Rate 10/05/18 84 18 93 21 09:48 10/05/18 98.0 126/70 Room Air 08:23 (88) 10/05/18 2.0 07:35 Intake and Output 10/04/18 10/04/18 10/05/18 1515:00 23:00 07:00 IntakeIntake Total 250 ml 50 ml 480 ml BalanceBalance 250 ml 50 ml 480 ml Constitutional: alert, oriented Psych: no complaints Head: normocephalic Eyes: nl conjunctiva ENMT: nl external ears & nose Neck: supple Respiratory: clear to auscultation Cardiovascular: regular rate and rhythm Gastrointestinal: soft Musculoskeletal: nl extremities to inspection Extremities: normal pulses Results Result Diagram: 10/05/18 0501 10/05/18 0501 Results 24hrs Laboratory Tests Test 10/04/18 18:57 10/05/18 05:01 White Blood Count 7.6 6.9 Red Blood Count 4.31 3.97 L Hemoglobin 12.4 11.6 L Hematocrit 38.8 35.8 L Mean Corpuscular Volume 90.0 90.2 Mean Corpuscular Hemoglobin 28.8 L 29.2 Mean Corpuscular Hemoglobin Concent 32.0 32.4 Red Cell Distribution Width 16.5 H 16.5 H Platelet Count 293 # 304 Mean Platelet Volume 10.2 10.8 H Immature Granulocytes % 0.300 0.300 Neutrophils % 77.6 H 70.6 Lymphocytes % 10.2 L 15.0 Monocytes % 8.5 8.6 Eosinophils % 2.9 4.5 Basophils % 0.5 1.0 Nucleated Red Blood Cells % 0.0 0.0 Immature Granulocytes # 0.020 0.020 Neutrophils # 5.9 4.9 Lymphocytes # 0.8 1.0 Monocytes # 0.7 0.6 Eosinophils # 0.2 0.3 Basophils # 0.0 0.1 Nucleated Red Blood Cells # 0.0 0.0 Sodium Level 139 139 Potassium Level 3.7 3.7 Chloride Level 103 104 Carbon Dioxide Level 30 29 Anion Gap 6 6 Blood Urea Nitrogen 16 15 Creatinine 0.67 0.64 Est Glomerular Filtrat Rate mL/min Glucose Level 109 92 Calcium Level 9.6 9.5 Medications Medication Current Medications Acetaminophen (Tylenol Tab) 650 mg Q4H PRN PO MILD PAIN(1-3)OR ELEVATED TEMP; Start 09/30/18 at 09:00 Ondansetron HCl (Zofran Inj) 4 mg Q6H PRN IV NAUSEA AND/OR VOMITING Last administered on 10/03/18at 16:12; Admin Dose 4 MG; Start 09/30/18 at 09:00 Hydromorphone HCl (Dilaudid) 1 mg Q3H PRN IV SEVERE PAIN LEVEL 7-10 Last administered on 10/01/18at 12:21; Admin Dose 1 MG; Start 09/30/18 at 11:30 Zolpidem Tartrate (Ambien) 5 mg HS MAY REPEAT X 1 PRN PO INSOMNIA Last administered on 10/04/18at 23:40; Admin Dose 5 MG; Start 09/30/18 at 20:30 Albuterol (Proventil 0.083% (Neb)) 2.5 mg Q6H RESP THERAPY PRN HHN SHORTNESS OF BREATH Last administered on 10/05/18 09:48; Admin Dose 2.5 MG; Start 10/01/18 at 02:30 Non-Formulary Medication 2 ea BID INH Last administered on 10/04/18 21:09; Admin Dose 2 EA; Start 10/01/18 at 23:28 Non-Formulary Medication 2 ea BID PRN INH WHEEZING AND SOB Last administered on 10/03/18 16:12; Admin Dose 2 EA; Start 10/01/18 at 23:45 Calcium Carbonate (Tums) 500 mg Q4H PRN PO HEARTBURN Last administered on 10/04/18 06:03; Admin Dose 500 MG; Start 10/02/18 at 01:00 Nicotine (Nicoderm 14 Mg/ 24hr) 1 patch DAILY TRANSDERM Last administered on 10/05/18 09:30; Admin Dose 1 PATCH; Start 10/02/18 at 09:00 Pantoprazole (Protonix Tab) 40 mg BID@06,18 PO Last administered on 10/05/18 06:20; Admin Dose 40 MG; Start 10/02/18 at 18:00 Guaifenesin (Mucinex) 600 mg BID PO Last administered on 10/03/18 08:47; Admin Dose 600 MG; Start 10/02/18 at 21:00 Ceftriaxone Sodium 50 ml @ 100 mls/hr Q24H IVPB Last administered on 10/05/18 09:30; Admin Dose 100 MLS/HR; Start 10/03/18 at 10:00 Azithromycin (Zithromax) 250 mg DAILY PO Last administered on 10/05/18 09:28; Admin Dose 250 MG; Start 10/04/18 at 09:00 Tramadol HCl (Ultram) 50 mg Q6H PRN PO MODERATE PAIN LEVEL 4-6 Last administered on 10/05/18 06:24; Admin Dose 50 MG; Start 10/03/18 at 16:30 Hydralazine HCl (Apresoline) 10 mg Q4H PRN IV ELEVATED BLOOD PRESSURE Last administered on 10/03/18 17:51; Admin Dose 10 MG; Start 10/03/18 at 18:00 Amlodipine Besylate (Norvasc) 5 mg BID PO Last administered on 10/05/18 09:29; Admin Dose 5 MG; Start 10/03/18 at 18:00 Metoprolol Tartrate (Lopressor) 25 mg BID PO Last administered on 10/05/18 09:29; Admin Dose 25 MG; Start 10/04/18 at 21:00 Aspirin (Aspirin) 81 mg DAILY PO Last administered on 10/05/18 09:29; Admin Dose 81 MG; Start 10/05/18 at 09:00 Docusate Sodium (Colace) 100 mg BID PO Last administered on 10/05/18 09:28; Admin Dose 100 MG; Start 10/04/18 at 21:00 Bisacodyl (Dulcolax) 10 mg DAILY PRN PO CONSTIPATION; Start 10/04/18 at 18:30 KIA MCKEON M.D. Oct 05, 2018 12:02
--- NOTE | 2018-10-05 15:04 | CONS ---
Consult Date/Type/Reason Admit Date/Time Oct 02, 2018 at 15:55 Initial Consult Date 10/02/18 Requesting Provider: TONEY DEL CID MD Date/Time of Note DATE: 10/05/18 TIME: 15:02 Subjective NO acute events - pt comfortable - no CP - in good fluid status now. ROS: No fever, no chills, no nausea, no vomiting, no diarrhea/constipation Objective Vitals Vital Signs Date Temp Pulse Resp B/P (MAP) Pulse Ox O2 O2 Flow FiO2 Time Delivery Rate 10/05/18 84 18 93 21 09:48 10/05/18 98.0 126/70 Room Air 08:23 (88) 10/05/18 2.0 07:35 Intake and Output 10/04/18 10/04/18 10/05/18 1414:59 22:59 06:59 IntakeIntake Total 250 ml 50 ml 480 ml BalanceBalance 250 ml 50 ml 480 ml Exam General: WN/WD/NAD, AOx 2-3 HEENT: Unicetric/atraumatic/EOMI (follow commands) NECK: JVD elevated, no thyromegaly Lymph: no lymphadenopathy HEART: regular with no S3, II/ systolic murmur at apex LUNGS: Coarse sounds ABD: soft, NT, ND, +BS : Intact Neuro: non focal SKIN: chronic changes EXT: trace edema Results/Medications Result Diagram: 10/05/18 0501 10/05/18 0501 Results 24 hrs Laboratory Tests Test 10/04/18 18:57 10/05/18 05:01 White Blood Count 7.6 6.9 Red Blood Count 4.31 3.97 L Hemoglobin 12.4 11.6 L Hematocrit 38.8 35.8 L Mean Corpuscular Volume 90.0 90.2 Mean Corpuscular Hemoglobin 28.8 L 29.2 Mean Corpuscular Hemoglobin Concent 32.0 32.4 Red Cell Distribution Width 16.5 H 16.5 H Platelet Count 293 # 304 Mean Platelet Volume 10.2 10.8 H Immature Granulocytes % 0.300 0.300 Neutrophils % 77.6 H 70.6 Lymphocytes % 10.2 L 15.0 Monocytes % 8.5 8.6 Eosinophils % 2.9 4.5 Basophils % 0.5 1.0 Nucleated Red Blood Cells % 0.0 0.0 Immature Granulocytes # 0.020 0.020 Neutrophils # 5.9 4.9 Lymphocytes # 0.8 1.0 Monocytes # 0.7 0.6 Eosinophils # 0.2 0.3 Basophils # 0.0 0.1 Nucleated Red Blood Cells # 0.0 0.0 Sodium Level 139 139 Potassium Level 3.7 3.7 Chloride Level 103 104 Carbon Dioxide Level 30 29 Anion Gap 6 6 Blood Urea Nitrogen 16 15 Creatinine 0.67 0.64 Est Glomerular Filtrat Rate mL/min Glucose Level 109 92 Calcium Level 9.6 9.5 Home Meds Reported Medications Metoprolol Tartrate* (Lopressor*) 25 Mg Tab, 25 MG PO DAILY, #60 TAB 09/30/18 Omeprazole* (Omeprazole*) 10 Mg Capsule.dr, 10 MG PO DAILY, #30 CAP 09/30/18 Medications Current Medications Acetaminophen (Tylenol Tab) 650 mg Q4H PRN PO MILD PAIN(1-3)OR ELEVATED TEMP; Start 09/30/18 at 09:00 Ondansetron HCl (Zofran Inj) 4 mg Q6H PRN IV NAUSEA AND/OR VOMITING Last administered on 10/03/18 16:12; Admin Dose 4 MG; Start 09/30/18 at 09:00 Hydromorphone HCl (Dilaudid) 1 mg Q3H PRN IV SEVERE PAIN LEVEL 7-10 Last administered on 10/01/18 12:21; Admin Dose 1 MG; Start 09/30/18 at 11:30 Zolpidem Tartrate (Ambien) 5 mg HS MAY REPEAT X 1 PRN PO INSOMNIA Last administered on 10/04/18 23:40; Admin Dose 5 MG; Start 09/30/18 at 20:30 Albuterol (Proventil 0.083% (Neb)) 2.5 mg Q6H RESP THERAPY PRN HHN SHORTNESS OF BREATH Last administered on 10/05/18 09:48; Admin Dose 2.5 MG; Start 10/01/18 at 02:30 Non-Formulary Medication 2 ea BID INH Last administered on 10/04/18 21:09; Admin Dose 2 EA; Start 10/01/18 at 23:28 Non-Formulary Medication 2 ea BID PRN INH WHEEZING AND SOB Last administered on 10/03/18 16:12; Admin Dose 2 EA; Start 10/01/18 at 23:45 Calcium Carbonate (Tums) 500 mg Q4H PRN PO HEARTBURN Last administered on 10/04/18 06:03; Admin Dose 500 MG; Start 10/02/18 at 01:00 Nicotine (Nicoderm 14 Mg/ 24hr) 1 patch DAILY TRANSDERM Last administered on 10/05/18 09:30; Admin Dose 1 PATCH; Start 10/02/18 at 09:00 Pantoprazole (Protonix Tab) 40 mg BID@06,18 PO Last administered on 10/05/18 06:20; Admin Dose 40 MG; Start 10/02/18 at 18:00 Guaifenesin (Mucinex) 600 mg BID PO Last administered on 10/03/18 08:47; Admin Dose 600 MG; Start 10/02/18 at 21:00 Ceftriaxone Sodium 50 ml @ 100 mls/hr Q24H IVPB Last administered on 10/05/18 09:30; Admin Dose 100 MLS/HR; Start 10/03/18 at 10:00 Azithromycin (Zithromax) 250 mg DAILY PO Last administered on 10/05/18 09:28; Admin Dose 250 MG; Start 10/04/18 at 09:00 Tramadol HCl (Ultram) 50 mg Q6H PRN PO MODERATE PAIN LEVEL 4-6 Last administered on 10/05/18 12:30; Admin Dose 50 MG; Start 10/03/18 at 16:30 Hydralazine HCl (Apresoline) 10 mg Q4H PRN IV ELEVATED BLOOD PRESSURE Last administered on 10/03/18 17:51; Admin Dose 10 MG; Start 10/03/18 at 18:00 Amlodipine Besylate (Norvasc) 5 mg BID PO Last administered on 10/05/18 09:29; Admin Dose 5 MG; Start 10/03/18 at 18:00 Metoprolol Tartrate (Lopressor) 25 mg BID PO Last administered on 10/05/18 09:29; Admin Dose 25 MG; Start 10/04/18 at 21:00 Aspirin (Aspirin) 81 mg DAILY PO Last administered on 10/05/18 09:29; Admin Dose 81 MG; Start 10/05/18 at 09:00 Docusate Sodium (Colace) 100 mg BID PO Last administered on 4/30/19at 09:28; Admin Dose 100 MG; Start 10/04/18 at 21:00 Bisacodyl (Dulcolax) 10 mg DAILY PRN PO CONSTIPATION; Start 10/04/18 at 18:30 Assessment/Plan Hospital Course (Demo Recall) 1.H/O stent-per patient last placed 06/2016-took plavix x 6 months. self d/c'd asa due to easy brusing - tolerated ASA now 2.s/p fall-? mechanical 0 no evidence of tachy-bradu arrhythmia 3.HTN - well maintained now 4. Humeral fx - conservative Rx planned 5.H/O [place] 2006? 6.tobacco dependence - d/c advised ABI MASON MD Oct 05, 2018 15:04
[2018-10-05 15:30] VITALS: BP 132/71; PULSE 86; RESP 18
[2018-10-05 19:28] VITALS: BP 142/62; PULSE 82; RESP 18
--- NOTE | 2018-10-07 21:08 | PN ---
DATE: 10/07/2018 One week post-trauma. Comfortable with splinted left upper extremity in a sling. The splint was rem cecilia. The left upper extremity is to be protected and immobilized in a sling. No physical therapy i nvolving left upper extremity yet. X-rays of the left shoulder was repeated. Dictated By: CINDY OMRRISON MD IK/NTS Conf#: [id number] DID#: [id number] CC: TONEY DEL CID MD;*EndCC*
== END 2018-10-05 20:00 | DRG 562 ==
LOC: E/R 03:01 → MS1 04:43 → INTOOBSV 04:43 → OBSVTOIN 10-02 15:55
PROVIDERS: ADMIT Internal Medicine; ATTEND Internal Medicine
PROC: 4A033R1 Measurement of Arterial Saturation, Peripheral, Percutaneous Approach (ICD-10-PCS; principal; 2018-10-02)
DX: S42.202A Unspecified fracture of upper end of left humerus, initial encounter for closed fracture (principal); J96.21 Acute and chronic respiratory failure with hypoxia; J44.1 Chronic obstructive pulmonary disease with (acute) exacerbation; D72.829 Elevated white blood cell count, unspecified; I10 Essential (primary) hypertension; K21.9 Gastro-esophageal reflux disease without esophagitis; I25.2 Old myocardial infarction; I25.10 Atherosclerotic heart disease of native coronary artery without angina pectoris; Z87.01 Personal history of pneumonia (recurrent); Z99.81 Dependence on supplemental oxygen; Z88.0 Allergy status to penicillin; Z87.891 Personal history of nicotine dependence; Z95.5 Presence of coronary angioplasty implant and graft; Z88.2 Allergy status to sulfonamides
CPT/HCPCS: 36600; 70450; 71045; 71250; 72125; 73030; 80048; 80053; 82803; 85025; 85610; 85730; 87116; 93005; 93306; 94640; 94664; 97110; 97116; 97163; 97530; 99217; G0378; J0360; J0696; J1170; J2270; J2405; J7042

== ENCOUNTER 2018-10-05 17:28 | Inpatient (IN) | payer MEDICARE, OTHER ==
[~2018-10-05] VITALS: Ht 160 cm; Wt 50.3 kg
[2018-10-05] MEDS: ALBUTEROL 0.083% (NEB) 2.5 MG/3 ML AMP HHN SCH (01:27)
[~2018-10-05 17:28] MED LIST: METO-448 PO; OMEP10CA4 PO
[2018-10-05 21:00] VITALS: BP 127/77; PULSE 89; RESP 18
[2018-10-05 21:37] VITALS: Ht 160 cm; Wt 50.3 kg
[2018-10-05] MEDS ORDERED: AMLODIPINE 5 MG TAB PO SCH (22:11)
[2018-10-05] MEDS ORDERED: hydrALAzine 20 MG INJ IV PRN (22:11)
[2018-10-05] MEDS ORDERED: BISACODYL (EC) 5 MG TAB PO PRN (22:11)
[2018-10-05] MEDS ORDERED: CALCIUM CARBONATE 500 MG CHEW TAB PO PRN (22:11)
[2018-10-05] MEDS ORDERED: HYDROmorphONE 1 MG/ML SYG IV PRN (22:11)
[2018-10-05] MEDS ORDERED: ALBUTEROL 0.083% (NEB) 2.5 MG/3 ML AMP HHN PRN (22:11)
[2018-10-05] MEDS ORDERED: DOCUSATE SODIUM 100 MG CAP PO SCH (22:11)
[2018-10-05] MEDS ORDERED: ZOLPIDEM 5 MG TAB PO PRN (22:11)
[2018-10-05] MEDS ORDERED: METOPROLOL 25 MG TAB PO SCH (22:11)
[2018-10-05] MEDS ORDERED: CEFTRIAXONE 1 GM/50 ML (PMX) 50 ML IVPB SCH (22:11)
[2018-10-05] MEDS ORDERED: traMADol 50 MG TAB PO PRN (22:11)
[2018-10-05] MEDS ORDERED: AZITHROMYCIN 250 MG TAB PO SCH (22:11)
[2018-10-05] MEDS ORDERED: ACETAMINOPHEN 325 MG TAB PO PRN ×2 (22:11→23:00)
[2018-10-05] MEDS ORDERED: ONDANSETRON 4 MG INJ IV PRN (22:11)
[2018-10-05] MEDS ORDERED: GUAIFENESIN LA 600 MG TABSR PO SCH (22:11)
[2018-10-05] MEDS ORDERED: SPECIAL NON-STANDARD MEDICATION INH PRN (22:11)
[2018-10-05] MEDS ORDERED: HYDROCODONE/APAP (7.5/325) TAB PO PRN (22:30)
[2018-10-05] MEDS ORDERED: MAGNESIUM HYDROXIDE 30ML CUP PO PRN (22:30)
[2018-10-05] MEDS ORDERED: LACTULOSE 30ML CUP PO PRN (22:30)
[2018-10-05] MEDS: AMLODIPINE 5 MG TAB PO SCH (23:00)
[2018-10-05] MEDS: GUAIFENESIN LA 600 MG TABSR PO SCH (23:02)
[2018-10-05] MEDS: SENNA TAB PO SCH (23:04)
[2018-10-05] MEDS: DOCUSATE SODIUM 100 MG CAP PO SCH (23:30)
[2018-10-05] MEDS: METOPROLOL 25 MG TAB PO SCH (23:31)
[2018-10-05] MEDS: traMADol 50 MG TAB PO PRN (23:38)
[2018-10-06] MEDS: ZOLPIDEM 5 MG TAB PO PRN ×2 (00:09→22:00)
[2018-10-06 02:15] VITALS: BP_SYST 114; BP_SYST 152; BP_DIAS 70; PULSE 87; RESP 18
--- NOTE | 2018-10-06 04:46 | HP ---
Date/Time of Note Date/Time of Note DATE: 10/06/18 TIME: 04:26 Assessment/Plan VTE Prophylaxis Risk score (from Ns)>0 risk: 4 SCD applied (from Ns): Yes SCD contraindicated: other Pharmacological prophylaxis: other Pharm contraindication: other Lines/Catheters IV Catheter Type (from Nrsg): Saline Lock Assessment/Plan Assessment/Plan - Pulmonary Debility - admit to Rehab - PT/OT evaluation today - Speech/Swallow eval today - RML ground glass lesion - per Oncology/Hem - UTI - Rocephin - Fracture of the left proximal humerus. 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 - Drug Allergy -Penicillin -Sulfa - GERD - ppi - Generalized weakness - PT /OT eval - Hx Heart attack; Sp stent placement - cardiology consult - Former smoker - reinforce smoking cessation - provide smoking cessation - SCD for DVT prophylaxis Patient is seen in collaboration with Dr Awan Results 24hrs Laboratory Tests Test 10/06/18 00:40 Urine Color YELLOW Urine Clarity CLOUDY A Urine pH 8.0 Urine Specific [place] 1.020 Urine Ketones TRACE A Urine Nitrite NEGATIVE Urine Bilirubin NEGATIVE Urine Urobilinogen NEGATIVE Urine Leukocyte Esterase NEGATIVE Urine Microscopic RBC 3 Urine Microscopic WBC 9 H Urine Squamous Epithelial Cells FEW Urine Amorphous Crystals MODERATE Urine Hemoglobin NEGATIVE Urine Glucose NEGATIVE Urine Total Protein NEGATIVE HPI/ROS Admit Date/Time Admit Date/Time Oct 05, 2018 at 21:11 ROS HPI This is a 72 yo F with PMH of COPD/emphysema, history of recurrent pneumonias, GERD and CAD s/p DC was admitted SP ground level mechanical fall which resulted in a left proximal humerus fracture. Patient is not a candidate for sx. Patient also had cough and CT chest scan showed a RML ground glass nodule of 5.4 mm.Transferred to Rehab for pulmonary debility. During assessment, patient denies shortness of breath, chest pain, palpitations, headache, fever, chills, focal weakness or numbness, abdominal pain, urinary frequency, dysuria, nausea/vomiting, diarrhea, constipation, denies any right/left calf pain. Patient denies any recent sick contacts or hospitalizations. Patient is admitted under Dr Awan for further treatment and evaluation. ROS All systems reviewed and are normal except as mentioned in HPI Allergies Penicillin Sulfa Eyes: no complaints ENT: no complaints Respiratory: no complaints Cardiovascular: no complaints Gastrointestinal: no complaints Genitourinary: no complaints Musculoskeletal: bone/joint pain, restricted range of motion, swelling Skin: bruising Neurologic: no complaints Lymphatic: no complaints Psychological: no complaints Immunologic: no complaints PMH/Family/Social Past Medical History Heart attack COPD Generalized weakness GERD Medications Current Medications Non-Formulary Medication 2 ea BID INH ; Start 10/05/18 at 22:11 Non-Formulary Medication 2 ea BID PRN INH WHEEZING AND SOB; Start 10/05/18 at 22:11 Nicotine (Nicoderm 14 Mg/ 24hr) 1 patch DAILY TRANSDERM ; Start 10/05/18 at 22:11 Pantoprazole (Protonix Tab) 40 mg BID@06,18 PO ; Start 10/05/18 at 22:11 Aspirin (Aspirin) 81 mg DAILY PO ; Start 10/05/18 at 22:11 Azithromycin (Zithromax) 250 mg DAILY PO ; Start 10/06/18 at 09:00; Stop 10/07/18 at 09:01 Ceftriaxone Sodium 50 ml @ 100 mls/hr Q24H IVPB ; Start 10/06/18 at 10:00; Stop 10/10/18 at 10:29 Lactulose (Enulose) 20 gm DAILY PRN PO CONSTIPATION; Start 10/05/18 at 22:30 Acetaminophen (Tylenol Tab) 650 mg Q4H PRN PO MILD PAIN(1-3)OR ELEVATED TEMP; Start 10/05/18 at 23:00 Albuterol (Proventil 0.083% (Neb)) 2.5 mg TID RESP THERAPY HHN ; Start 10/05/18 at 23:00 Amlodipine Besylate (Norvasc) 5 mg BID PO ; Start 10/05/18 at 23:00 Bisacodyl (Dulcolax) 10 mg DAILY PRN PO CONSTIPATION; Start 10/05/18 at 23:30 Calcium Carbonate (Tums) 500 mg Q4H PRN PO HEARTBURN; Start 10/05/18 at 23:30 Docusate Sodium (Colace) 100 mg BID PO Last administered on 10/05/18at 23:30; Admin Dose 100 MG; Start 10/05/18 at 23:01 Guaifenesin (Mucinex) 600 mg BID PO ; Start 10/05/18 at 23:02 Magnesium Hydroxide (Milk Of Mag) 30 ml BID PRN PO CONSTIPATION; Start 10/05/18 at 23:30 Metoprolol Tartrate (Lopressor) 25 mg BID PO Last administered on 10/05/18at 23:31; Admin Dose 25 MG; Start 10/05/18 at 23:02 Senna (Senokot) 1 tab HS PO ; Start 10/05/18 at 23:04 Zolpidem Tartrate (Ambien) 5 mg HS MAY REPEAT X 1 PRN PO INSOMNIA Last administered on 10/06/18at 00:09; Admin Dose 5 MG; Start 10/05/18 at 23:05 Tramadol HCl (Ultram) 50 mg Q6H PRN PO MODERATE PAIN LEVEL 4-6 Last administer ed on 10/05/18at 23:38; Admin Dose 50 MG; Start 10/05/18 at 23:30 Coded Allergies: Penicillins (Verified Allergy, Mild, HIVES, ITCHINESS, RASHES, 09/10/06) Sulfa (Sulfonamide Antibiotics) (Verified Allergy, Mild, HIVES, ITCHINESS, RASHES, 09/10/06) Past Surgical History sp cardiac stent placement Family History Significant Family History: no pertinent family hx Social History Alcohol Use: none Smoking Status: Former smoker Drug Use: none Exam/Review of Systems Vital Signs Vitals Vital Signs Date Temp Pulse Resp B/P (MAP) Pulse Ox O2 O2 Flow FiO2 Time Delivery Rate 10/06/18 97.7 87 18 114/70 93 Room Air 02:15 (85) Intake and Output 10/05/18 10/05/18 10/06/18 1515:00 23:00 07:00 IntakeIntake Total 300 ml BalanceBalance 300 ml Exam Constitutional: alert, well developed Psych: nl mood/affect Eyes: nl lids, nl sclera ENMT: nl external ears & nose Neck: non-tender Respiratory: diminished breath sounds Cardiovascular: nl pulses, other (s1s2) Gastrointestinal: soft, non-tender Musculoskeletal: joint tenderness, range of motion Neurological: nl speech, other (alert) Skin: nl turgor Lymph: nontender DANUTA ARAUJO October 06, 2018 04:37
[2018-10-06] MEDS: PANTOPRAZOLE (EC) 40 MG TAB PO SCH ×2 (05:32→17:35)
[2018-10-06 08:00] VITALS: BP 139/90; PULSE 75; RESP 18
[2018-10-06] MEDS: traMADol 50 MG TAB PO PRN ×3 (08:02→21:14)
[2018-10-06] MEDS: AZITHROMYCIN 250 MG TAB PO SCH (08:54)
[2018-10-06] MEDS: NICOTINE (14 MG/24 HR) PATCH TRANSDERM SCH (08:54)
[2018-10-06] MEDS: HYDROCORTISONE 1% 28 GM CR TOP SCH ×3 (08:54→21:03)
[2018-10-06] MEDS: METOPROLOL 25 MG TAB PO SCH ×2 (08:55→21:02)
[2018-10-06] MEDS: AMLODIPINE 5 MG TAB PO SCH ×2 (08:55→21:02)
[2018-10-06] MEDS: ASPIRIN 81 MG TAB PO SCH (08:55)
[2018-10-06] MEDS: GUAIFENESIN LA 600 MG TABSR PO SCH ×2 (08:56→21:00)
[2018-10-06] MEDS: DOCUSATE SODIUM 100 MG CAP PO SCH ×2 (08:56→21:00)
[2018-10-06] MEDS ORDERED: ALBUTEROL 0.083% (NEB) 2.5 MG/3 ML AMP HHN SCH (09:00)
[2018-10-06] MEDS: SPECIAL NON-STANDARD MEDICATION INH SCH ×2 (09:00→21:04)
[2018-10-06] MEDS: CEFTRIAXONE 1 GM/50 ML (PMX) 50 ML IVPB SCH (11:05)
[2018-10-06] MEDS: ALBUTEROL 0.083% (NEB) 2.5 MG/3 ML AMP HHN SCH ×3 (14:30→17:00)
--- NOTE | 2018-10-06 14:32 | CONS ---
DATE OF ADMISSION: 10/05/2018 DATE OF CONSULTATION: 10/06/2018 TYPE OF CONSULTATION: Rehabilitation post-admission physician evaluation. REHABILITATION IMPAIRMENT CATEGORY: Pulmonary debility secondary to bronchopneumonia and COPD exacer mackenzie. ACTIVE COMORBIDITIES: 1. Left proximal humeral fracture, being treated conservatively. 2. Acute pain syndrome. 3. History of adenocarcinoma. 4. Hypertension. 5. Hyperlipidemia. 6. Gastroesophageal reflux disease. 7. Left foot drop. 8. Coronary artery disease with history of stent. 9. Impairments in self-care and mobility. HISTORY OF PRESENT ILLNESS: The patient is a very pleasant 72-year-old right-handed female with a hi story of multiple medical comorbidities who had noted worsening productive cough and dyspnea on exert ion. The patient had also sustained a mechanical fall and presented to [facility]. The patient was noted to have bronchopulmonary pneumonia in addition to left humeral fracture. The left humeral fracture was treated conservatively with immobilization, splint and sling. The patient was noted to have significant impairments in self-care and mobility as compared to baseline and has been cleared to transfer to the rehabilitation unit for comprehensive interdisciplinary rehab care. The patient also reportedly had blunt head trauma with the fall and a head CT was performed which was negative for acute changes. FUNCTIONAL HISTORY: Prior to recent events, she was independent in self-care tasks and mobility. Cu rrently, she requires moderate to maximal assist for self-care and mobility tasks. I have reviewed the preadmission screen and the patient's current functional status is consistent wit h the preadmission screen. FAMILY AND SOCIAL HISTORY: The patient lives at home and hopes to return there upon discharge. PAST MEDICAL HISTORY: 1. COPD. 2. Adenocarcinoma. 3. Hypertension. 4. Hyperlipidemia. 5. Gastroesophageal reflux disease. 6. Coronary artery disease. 7. History of left foot drop. CURRENT MEDICATIONS: 1. Albuterol inhaler. 2. Norvasc 5 mg p.o. b.i.d. 3. Aspirin 81 mg p.o. daily. 4. Zithromax 250 p.o. daily. 5. Ceftriaxone IV. 6. Colace p.r.n. 7. Lopressor 25 mg p.o. b.i.d. 8. Nicoderm patch. 9. Protonix 40 mg p.o. b.i.d. 10. Ambien p.r.n. 11. [place] p.r.n. ALLERGIES: 1. PENICILLIN. 2. SULFA. PHYSICAL EXAMINATION: VITAL SIGNS: The patient is currently afebrile with stable vital signs. HEENT: Extraocular motions appear intact. Oropharynx is clear. NECK: Supple. LUNGS: Clear anteriorly. CARDIAC: S1, S2. ABDOMEN: Soft, nontender, positive bowel sounds. EXTREMITIES: Reveal left upper extremity with some distal edema. She is able to flex and extend roberts d. NEUROLOGIC: She is awake, alert and oriented x3. She follows simple 1-step commands. She demonstra jerod good strength in the right upper extremity and right lower extremity. Left lower extremity with notable foot drop. PLAN: The patient has been admitted for comprehensive interdisciplinary acute rehab and is anticipat ed to tolerate 3 hours of daily therapy in divided doses for at least 5/7 days a week. The treatment plan will include: 1. Physical therapy to focus on bed mobility, transfers and household ambulation with the goal of sheikh ving the patient reach a standby assist level. 2. Occupational therapy to focus on hygiene, grooming, dressing, bathing and toileting activities wi th the goal of having the patient reach standby assist level. 3. Rehabilitation nursing for carryover of therapeutic interventions, the goal of continent of bowel and bladder, the goal of pain adequately managed on oral medications and patient education with eder mims to the aforementioned issues. ESTIMATED LENGTH OF STAY: 14 days. DISPOSITION GOAL: Home. REHABILITATION BARRIER: Pain. INTERVENTION FOR BARRIER: Interdisciplinary approach. As a board certified cardiac rehabilitation specialist in physical medicine and rehabilitation, I tested this patient qualifies for an interdisciplinary acute rehabilitation unit stay and is best managed at [facility] s level of care. After a thorough review of the patient's medical record and full physical examinati on, I believe that this patient meets criteria for acute rehabilitation unit level of care under [facility] guidelines and is anticipated to make reasonable goals in a reasonable period of time as outlined abo ve. Dictated By: NUHA BLANCHARD/NTS Conf#: [id number] DID#: [id number] CC: TONEY DEL CID MD;*EndCC*
--- NOTE | 2018-10-06 18:34 | CONS ---
Assessment/Plan Assessment/Plan Hospital Course (Demo Recall) IMP: 1.H/O stent-per patient last placed 06/2016-took plavix x 6 months. self d/c'd asa due to easy brusing. Tolerating now. NL EF by echo this admit 2.s/p fall-? mechanical 3.HTN-somewhat labile but overall reasonable 4. Humeral fx 5.H/O [place] 2006? 6.tobacco dependence Recc: -Continue baby asa as tolerated -Continue norvasc/BB -Continue abx's and f/u cx data -Pain control -Ongoing ortho eval with arm with significant swelling Consultation Date/Type/Reason Admit Date/Time Oct 05, 2018 at 21:11 Initial Consult Date 10/05/18 Type of Consult Cardiology Reason for Consultation H/O stent Requesting Provider: TONEY DEL CID MD Date/Time of Note DATE: 10/06/18 TIME: 18:31 Exam/Review of Systems Vital Signs Vitals Vital Signs Date Temp Pulse Resp B/P (MAP) Pulse Ox O2 O2 Flow FiO2 Time Delivery Rate 10/06/18 83 20 95 Nasal 21 14:58 Cannula 10/06/18 97.9 139/90 08:00 (106) Intake and Output 10/05/18 10/05/18 10/06/18 1515:00 23:00 07:00 IntakeIntake Total 480 ml BalanceBalance 480 ml Exam Exam Review of Systems: CONSTITUTIONAL: No fevers, chills. PULMONARY: No sob CARDIOVASCULAR: No chest pain/palpitations GASTROINTESTINAL: No nausea/vomiting. GENITOURINARY: No hematuria/dysuria. MUSCULOSKELETAL: Pain in arm PSYCHIATRIC: The patient denies depression. NEUROLOGIC: No weakness Constitutional: alert Psych: no complaints Head: normocephalic ENMT: mucosa pink and moist Neck: jvd (9 cm water) Respiratory: clear to auscultation Cardiovascular: regular rate and rhythm Gastrointestinal: soft, non-tender Musculoskeletal: muscle tone (normal) Extremities: edema (LUE) Labs Result Diagram: 10/06/18 0558 10/06/18 0558 Results 24hrs Laboratory Tests Test 10/06/18 00:40 10/06/18 05:58 Urine Color YELLOW Urine Clarity CLOUDY A Urine pH 8.0 Urine Specific [place] 1.020 Urine Ketones TRACE A Urine Nitrite NEGATIVE Urine Bilirubin NEGATIVE Urine Urobilinogen NEGATIVE Urine Leukocyte Esterase NEGATIVE Urine Microscopic RBC 3 Urine Microscopic WBC 9 H Urine Squamous Epithelial Cells FEW Urine Amorphous Crystals MODERATE Urine Hemoglobin NEGATIVE Urine Glucose NEGATIVE Urine Total Protein NEGATIVE White Blood Count 7.8 Red Blood Count 4.07 L Hemoglobin 11.9 L Hematocrit 37.0 Mean Corpuscular Volume 90.9 Mean Corpuscular Hemoglobin 29.2 Mean Corpuscular Hemoglobin Concent 32.2 Red Cell Distribution Width 16.7 H Platelet Count 310 Mean Platelet Volume 10.3 Immature Granulocytes % 0.800 H Neutrophils % 70.2 Lymphocytes % 14.4 L Monocytes % 8.2 Eosinophils % 5.5 Basophils % 0.9 Nucleated Red Blood Cells % 0.0 Immature Granulocytes # 0.060 H Neutrophils # 5.5 Lymphocytes # 1.1 Monocytes # 0.6 Eosinophils # 0.4 Basophils # 0.1 Nucleated Red Blood Cells # 0.0 Sodium Level 141 Potassium Level 3.9 Chloride Level 105 Carbon Dioxide Level 29 Anion Gap 7 Blood Urea Nitrogen 16 Creatinine 0.66 Est Glomerular Filtrat Rate mL/min Glucose Level 103 Calcium Level 9.4 Total Bilirubin 0.2 Direct Bilirubin 0.00 Indirect Bilirubin 0.2 Aspartate Amino Transf (AST/SGOT) 16 Alanine Aminotransferase (ALT/SGPT) 9 L Alkaline Phosphatase 93 Total Protein 6.6 Albumin 3.4 Globulin 3.20 Albumin/Globulin Ratio 1.06 Medications Medications Current Medications Non-Formulary Medication 2 ea BID INH Last administered on 10/06/18 09:00; Admin Dose 2 EA; Start 10/05/18 at 22:11 Non-Formulary Medication 2 ea BID PRN INH WHEEZING AND SOB; Start 10/05/18 at 22:11 Nicotine (Nicoderm 14 Mg/ 24hr) 1 patch DAILY TRANSDERM Last administered on 10/06/18 08:54; Admin Dose 1 PATCH; Start 10/05/18 at 22:11 Pantoprazole (Protonix Tab) 40 mg BID@06,18 PO Last administered on 10/06/18 17:35; Admin Dose 40 MG; Start 10/05/18 at 22:11 Aspirin (Aspirin) 81 mg DAILY PO Last administered on 10/06/18 08:55; Admin Dose 81 MG; Start 10/05/18 at 22:11 Azithromycin (Zithromax) 250 mg DAILY PO Last administered on 5/1/19at 08:54; Admin Dose 250 MG; Start 10/06/18 at 09:00; Stop 10/07/18 at 09:01 Ceftriaxone Sodium 50 ml @ 100 mls/hr Q24H IVPB Last administered on 10/06/18at 11:05; Admin Dose 100 MLS/HR; Start 10/06/18 at 10:00; Stop 10/10/18 at 10:29 Lactulose (Enulose) 20 gm DAILY PRN PO CONSTIPATION; Start 10/05/18 at 22:30 Acetaminophen (Tylenol Tab) 650 mg Q4H PRN PO MILD PAIN(1-3)OR ELEVATED TEMP; Start 10/05/18 at 23:00 Albuterol (Proventil 0.083% (Neb)) 2.5 mg TID RESP THERAPY HHN Last administered on 10/06/18at 14:54; Admin Dose 2.5 MG; Start 10/05/18 at 23:00 Amlodipine Besylate (Norvasc) 5 mg BID PO Last administered on 10/06/18at 08:55; Admin Dose 5 MG; Start 10/05/18 at 23:00 Bisacodyl (Dulcolax) 10 mg DAILY PRN PO CONSTIPATION; Start 10/05/18 at 23:30 Calcium Carbonate (Tums) 500 mg Q4H PRN PO HEARTBURN; Start 10/05/18 at 23:30 Docusate Sodium (Colace) 100 mg BID PO Last administered on 10/05/18at 23:30; Admin Dose 100 MG; Start 10/05/18 at 23:01 Guaifenesin (Mucinex) 600 mg BID PO ; Start 10/05/18 at 23:02 Magnesium Hydroxide (Milk Of Mag) 30 ml BID PRN PO CONSTIPATION; Start 10/05/18 at 23:30 Metoprolol Tartrate (Lopressor) 25 mg BID PO Last administered on 10/06/18at 08:55; Admin Dose 25 MG; Start 10/05/18 at 23:02 Senna (Senokot) 1 tab HS PO ; Start 10/05/18 at 23:04 Zolpidem Tartrate (Ambien) 5 mg HS MAY REPEAT X 1 PRN PO INSOMNIA Last admin istered on 10/06/18at 00:09; Admin Dose 5 MG; Start 4/30/19 at 23:05 Tramadol HCl (Ultram) 50 mg Q6H PRN PO MODERATE PAIN LEVEL 4-6 Last administered on 10/06/18at 15:11; Admin Dose 50 MG; Start 10/05/18 at 23:30 Hydrocortisone (Hydrocortisone 1% Cr) 1 applic TID TOP Last administered on 10/06/18at 15:11; Admin Dose 1 APPLIC; Start 10/06/18 at 09:00 Diphenhydramine HCl (Benadryl) 25 mg Q6H PRN PO ITCHING; Start 10/06/18 at 04:30 SAMANTHA LEONARD October 06, 2018 18:34
[2018-10-06 20:00] VITALS: BP 145/73; PULSE 84; RESP 18
[2018-10-06] MEDS: SENNA TAB PO SCH (21:00)
[2018-10-06] MEDS ORDERED: SENNA TAB PO SCH (21:00)
[2018-10-07 02:00] VITALS: BP 139/76; PULSE 78; RESP 18
[2018-10-07] MEDS: PANTOPRAZOLE (EC) 40 MG TAB PO SCH ×2 (05:12→20:27)
[2018-10-07] MEDS: traMADol 50 MG TAB PO PRN ×4 (05:14→20:29)
[2018-10-07] MEDS: DOCUSATE SODIUM 100 MG CAP PO SCH ×2 (09:00→20:28)
[2018-10-07] MEDS: GUAIFENESIN LA 600 MG TABSR PO SCH ×2 (09:00→20:30)
[2018-10-07] MEDS: AZITHROMYCIN 250 MG TAB PO SCH (09:23)
[2018-10-07] MEDS: ASPIRIN 81 MG TAB PO SCH (09:24)
[2018-10-07] MEDS: AMLODIPINE 5 MG TAB PO SCH ×2 (09:26→20:29)
[2018-10-07] MEDS: METOPROLOL 25 MG TAB PO SCH ×2 (09:27→20:28)
[2018-10-07] MEDS: NICOTINE (14 MG/24 HR) PATCH TRANSDERM SCH (09:28)
[2018-10-07] MEDS: HYDROCORTISONE 1% 28 GM CR TOP SCH ×3 (09:43→20:36)
[2018-10-07] MEDS: SPECIAL NON-STANDARD MEDICATION INH SCH ×2 (09:43→21:00)
--- NOTE | 2018-10-07 10:47 | PN ---
Date/Time of Note Date/Time of Note DATE: 10/07/18 TIME: 10:47 Assessment/Plan VTE Prophylaxis Risk score (from Nsg)>0 risk: 5 SCD applied (from Nsg): Yes Lines/Catheters IV Catheter Type (from Nrsg): Saline Lock Assessment/Plan Assessment/Plan - Pulmonary Debility - admit to Rehab - PT/OT evaluation today - Speech/Swallow eval today - RML ground glass lesion - per Oncology/Hem - UTI - Rocephin - Fracture of the left proximal humerus. 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 - Drug Allergy -Penicillin -Sulfa - GERD - ppi - Generalized weakness - PT /OT eval - Hx Heart attack; Sp stent placement - cardiology consult - Former smoker - reinforce smoking cessation - provide smoking cessation - SCD for DVT prophylaxis Patient is seen in collaboration with Dr Awan Result Diagram: 10/06/18 0558 10/06/1858 Exam/Review of Systems Exam Vitals Vital Signs Date Temp Pulse Resp B/P (MAP) Pulse Ox O2 O2 Flow FiO2 Time Delivery Rate 10/06/18 98.0 84 18 145/73 96 Room Air 20:00 (97) 10/06/18 21 14:58 Intake and Output 10/06/18 10/06/18 10/07/18 1515:00 23:00 07:00 IntakeIntake Total 50 ml BalanceBalance 50 ml Medications Medication Current Medications Non-Formulary Medication 2 ea BID INH Last administered on 10/07/18at 09:43; Admin Dose 2 EA; Start 10/05/18 at 22:11 Non-Formulary Medication 2 ea BID PRN INH WHEEZING AND SOB; Start 10/05/18 at 22:11 Nicotine (Nicoderm 14 Mg/ 24hr) 1 patch DAILY TRANSDERM Last administered on 10/07/18at 09:28; Admin Dose 1 PATCH; Start 10/05/18 at 22:11 Pantoprazole (Protonix Tab) 40 mg BID@06,18 PO Last administered on 10/07/18at 05:12; Admin Dose 40 MG; Start 10/05/18 at 22:11 Aspirin (Aspirin) 81 mg DAILY PO Last administered on 10/07/18 09:24; Admin Dose 81 MG; Start 10/05/18 at 22:11 Ceftriaxone Sodium 50 ml @ 100 mls/hr Q24H IVPB Last administered on 10/06/18at 11:05; Admin Dose 100 MLS/HR; Start 10/06/18 at 10:00; Stop 10/10/18 at 10:29 Lactulose (Enulose) 20 gm DAILY PRN PO CONSTIPATION; Start 10/05/18 at 22:30 Acetaminophen (Tylenol Tab) 650 mg Q4H PRN PO MILD PAIN(1-3)OR ELEVATED TEMP; Start 10/05/18 at 23:00 Albuterol (Proventil 0.083% (Neb)) 2.5 mg TID RESP THERAPY HHN Last administered on 10/06/18at 14:54; Admin Dose 2.5 MG; Start 10/05/18 at 23:00 Amlodipine Besylate (Norvasc) 5 mg BID PO Last administered on 10/07/18at 09:26; Admin Dose 5 MG; Start 10/05/18 at 23:00 Bisacodyl (Dulcolax) 10 mg DAILY PRN PO CONSTIPATION; Start 10/05/18 at 23:30 Calcium Carbonate (Tums) 500 mg Q4H PRN PO HEARTBURN; Start 10/05/18 at 23:30 Docusate Sodium (Colace) 100 mg BID PO Last administered on 10/05/18at 23:30; Admin Dose 100 MG; Start 10/05/18 at 23:01 Guaifenesin (Mucinex) 600 mg BID PO ; Start 10/05/18 at 23:02 Magnesium Hydroxide (Milk Of Mag) 30 ml BID PRN PO CONSTIPATION; Start 10/05/18 at 23:30 Metoprolol Tartrate (Lopressor) 25 mg BID PO Last administered on 10/07/18at 09:27; Admin Dose 25 MG; Start 10/05/18 at 23:02 Senna (Senokot) 1 tab HS PO ; Start 10/05/18 at 23:04 Zolpidem Tartrate (Ambien) 5 mg HS MAY REPEAT X 1 PRN PO INSOMNIA Last administered on 10/06/18at 22:00; Admin Dose 5 MG; Start 4/30/19 at 23:05 Hydrocortisone (Hydrocortisone 1% Cr) 1 applic TID TOP Last administered on 10/07/18at 09:43; Admin Dose 1 APPLIC; Start 10/06/18 at 09:00 Diphenhydramine HCl (Benadryl) 25 mg Q6H PRN PO ITCHING; Start 10/06/18 at 04:30 Tramadol HCl (Ultram) 50 mg Q4H PRN PO MILD-MODERATE PAIN LEVEL 1-6; Start 10/07/18 at 10:10 Tramadol HCl (Ultram) 100 mg Q4H PRN PO SEVERE PAIN LEVEL 7-10; Start 10/07/18 at 10:30 DANUTA ARAUJO October 07, 2018 10:47
[2018-10-07] MEDS: CEFTRIAXONE 1 GM/50 ML (PMX) 50 ML IVPB SCH (11:19)
--- NOTE | 2018-10-07 11:33 | PN ---
Date/Time of Note Date/Time of Note DATE: 10/07/18 TIME: 11:30 Objective Vital Signs Date Temp Pulse Resp B/P (MAP) Pulse Ox O2 O2 Flow FiO2 Time Delivery Rate 10/06/18 98.0 84 18 145/73 96 Room Air 20:00 (97) 10/06/18 21 14:58 Intake and Output 10/06/18 10/06/18 10/07/18 1414:59 22:59 06:59 IntakeIntake Total 50 ml BalanceBalance 50 ml Exam min transfer min/mod ambulation Results/Medications Result Diagram: 10/06/1858 10/06/1858 Medications Current Medications Non-Formulary Medication 2 ea BID INH Last administered on 10/07/18at 09:43; Admin Dose 2 EA; Start 10/05/18 at 22:11 Non-Formulary Medication 2 ea BID PRN INH WHEEZING AND SOB; Start 10/05/18 at 22:11 Nicotine (Nicoderm 14 Mg/ 24hr) 1 patch DAILY TRANSDERM Last administered on 10/07/18at 09:28; Admin Dose 1 PATCH; Start 10/05/18 at 22:11 Pantoprazole (Protonix Tab) 40 mg BID@06,18 PO Last administered on 10/07/18at 05:12; Admin Dose 40 MG; Start 10/05/18 at 22:11 Aspirin (Aspirin) 81 mg DAILY PO Last administered on 10/07/18at 09:24; Admin Dose 81 MG; Start 10/05/18 at 22:11 Ceftriaxone Sodium 50 ml @ 100 mls/hr Q24H IVPB Last administered on 10/07/18at 11:19; Admin Dose 100 MLS/HR; Start 10/06/18 at 10:00; Stop 10/10/18 at 10:29 Lactulose (Enulose) 20 gm DAILY PRN PO CONSTIPATION; Start 10/05/18 at 22:30 Acetaminophen (Tylenol Tab) 650 mg Q4H PRN PO MILD PAIN(1-3)OR ELEVATED TEMP; Start 10/05/18 at 23:00 Albuterol (Proventil 0.083% (Neb)) 2.5 mg TID RESP THERAPY HHN Last administered on 10/06/18at 14:54; Admin Dose 2.5 MG; Start 10/05/18 at 23:00 Amlodipine Besylate (Norvasc) 5 mg BID PO Last administered on 10/07/18at 09:26; Admin Dose 5 MG; Start 10/05/18 at 23:00 Bisacodyl (Dulcolax) 10 mg DAILY PRN PO CONSTIPATION; Start 10/05/18 at 23:30 Calcium Carbonate (Tums) 500 mg Q4H PRN PO HEARTBURN; Start 10/05/18 at 23:30 Docusate Sodium (Colace) 100 mg BID PO Last administered on 10/05/18at 23:30; Admin Dose 100 MG; Start 10/05/18 at 23:01 Guaifenesin (Mucinex) 600 mg BID PO ; Start 10/05/18 at 23:02 Magnesium Hydroxide (Milk Of Mag) 30 ml BID PRN PO CONSTIPATION; Start 10/05/18 at 23:30 Metoprolol Tartrate (Lopressor) 25 mg BID PO Last administered on 10/07/18at 09:27; Admin Dose 25 MG; Start 10/05/18 at 23:02 Senna (Senokot) 1 tab HS PO ; Start 10/05/18 at 23:04 Zolpidem Tartrate (Ambien) 5 mg HS MAY REPEAT X 1 PRN PO INSOMNIA Last administered on 10/06/18at 22:00; Admin Dose 5 MG; Start 10/05/18 at 23:05 Hydrocortisone (Hydrocortisone 1% Cr) 1 applic TID TOP Last administered on 10/07/18at 09:43; Admin Dose 1 APPLIC; Start 10/06/18 at 09:00 Diphenhydramine HCl (Benadryl) 25 mg Q6H PRN PO ITCHING; Start 10/06/18 at 04:30 Tramadol HCl (Ultram) 50 mg Q4H PRN PO MILD-MODERATE PAIN LEVEL 1-6; Start 10/07/18 at 10:10 Tramadol HCl (Ultram) 100 mg Q4H PRN PO SEVERE PAIN LEVEL 7-10; Start 10/07/18 at 10:30 Assessment/Plan Additional Assessment/Plan Rehab- Pulmonary debility secondary to bronchopneumonia and COPD exacerbation; Left proximal humeral fracture, being treated conservatively Continue treatment plan Acute pain syndrome. History of adenocarcinoma. Hypertension. Hyperlipidemia. Gastroesophageal reflux disease. Left foot drop- family to bring in her AFO Coronary artery disease with history of stent. NUHA HUI MD October 07, 2018 11:33
--- NOTE | 2018-10-07 18:10 | CONS ---
Assessment/Plan Assessment/Plan Hospital Course (Demo Recall) IMP: 1.H/O stent-per patient last placed 06/2016-took plavix x 6 months. self d/c'd asa due to easy brusing. Tolerating now. NL EF by echo this admit 2.s/p fall-? mechanical 3.HTN-somewhat labile but overall reasonable 4. Humeral fx 5.H/O RI 2006? 6.tobacco dependence Recc: -Continue baby asa as tolerated -Continue norvasc/BB -Continue abx's and f/u cx data -Pain control -Ongoing ortho eval with arm with significant swelling Consultation Date/Type/Reason Admit Date/Time Oct 05, 2018 at 21:11 Initial Consult Date 10/05/18 Type of Consult Cardiology Reason for Consultation HTN Requesting Provider: TONEY DEL CID MD Date/Time of Note DATE: 10/07/18 TIME: 18:08 Exam/Review of Systems Vital Signs Vitals Vital Signs Date Temp Pulse Resp B/P (MAP) Pulse Ox O2 O2 Flow FiO2 Time Delivery Rate 10/07/18 97.6 78 18 139/76 96 Room Air 02:00 (97) 10/06/18 21 14:58 Intake and Output 10/06/18 10/06/18 10/07/18 1515:00 23:00 07:00 IntakeIntake Total 50 ml BalanceBalance 50 ml Exam Exam Review of Systems: CONSTITUTIONAL: No fevers, chills. PULMONARY: No sob CARDIOVASCULAR: No chest pain/palpitations GASTROINTESTINAL: No nausea/vomiting. GENITOURINARY: No hematuria/dysuria. MUSCULOSKELETAL: pain in arm PSYCHIATRIC: The patient denies depression. NEUROLOGIC: No weakness Constitutional: alert Psych: no complaints Head: normocephalic ENMT: mucosa pink and moist Neck: supple, jvd (8 cm water) Respiratory: clear to auscultation Cardiovascular: regular rate and rhythm Gastrointestinal: soft, non-tender Musculoskeletal: muscle tone (normal) Extremities: edema (of UE in sling) Labs Result Diagram: 10/06/18 0558 10/06/1858 Medications Medications Current Medications Non-Formulary Medication 2 ea BID INH Last administered on 10/07/18at 09:43; Admin Dose 2 EA; Start 10/05/18 at 22:11 Non-Formulary Medication 2 ea BID PRN INH WHEEZING AND SOB; Start 10/05/18 at 22:11 Nicotine (Nicoderm 14 Mg/ 24hr) 1 patch DAILY TRANSDERM Last administered on 10/07/18at 09:28; Admin Dose 1 PATCH; Start 10/05/18 at 22:11 Pantoprazole (Protonix Tab) 40 mg BID@06,18 PO Last administered on 10/07/18 05:12; Admin Dose 40 MG; Start 10/05/18 at 22:11 Aspirin (Aspirin) 81 mg DAILY PO Last administered on 10/07/18at 09:24; Admin Dose 81 MG; Start 10/05/18 at 22:11 Ceftriaxone Sodium 50 ml @ 100 mls/hr Q24H IVPB Last administered on 10/07/18 11:19; Admin Dose 100 MLS/HR; Start 10/06/18 at 10:00; Stop 10/10/18 at 10:29 Lactulose (Enulose) 20 gm DAILY PRN PO CONSTIPATION; Start 10/05/18 at 22:30 Acetaminophen (Tylenol Tab) 650 mg Q4H PRN PO MILD PAIN(1-3)OR ELEVATED TEMP; Start 10/05/18 at 23:00 Albuterol (Proventil 0.083% (Neb)) 2.5 mg TID RESP THERAPY HHN Last administered on 10/06/18at 14:54; Admin Dose 2.5 MG; Start 10/05/18 at 23:00 Amlodipine Besylate (Norvasc) 5 mg BID PO Last administered on 10/07/18 09:26; Admin Dose 5 MG; Start 10/05/18 at 23:00 Bisacodyl (Dulcolax) 10 mg DAILY PRN PO CONSTIPATION; Start 10/05/18 at 23:30 Calcium Carbonate (Tums) 500 mg Q4H PRN PO HEARTBURN; Start 10/05/18 at 23:30 Docusate Sodium (Colace) 100 mg BID PO Last administered on 10/05/18at 23:30; Admin Dose 100 MG; Start 10/05/18 at 23:01 Guaifenesin (Mucinex) 600 mg BID PO ; Start 10/05/18 at 23:02 Magnesium Hydroxide (Milk Of Mag) 30 ml BID PRN PO CONSTIPATION; Start 10/05/18 at 23:30 Metoprolol Tartrate (Lopressor) 25 mg BID PO Last administered on 10/07/18 09:27; Admin Dose 25 MG; Start 10/05/18 at 23:02 Senna (Senokot) 1 tab HS PO ; Start 10/05/18 at 23:04 Zolpidem Tartrate (Ambien) 5 mg HS MAY REPEAT X 1 PRN PO INSOMNIA Last administered on 10/06/18at 22:00; Admin Dose 5 MG; Start 10/05/18 at 23:05 Hydrocortisone (Hydrocortisone 1% Cr) 1 applic TID TOP Last administered on 10/07/18at 15:37; Admin Dose 1 APPLIC; Start 10/06/18 at 09:00 Diphenhydramine HCl (Benadryl) 25 mg Q6H PRN PO ITCHING; Start 10/06/18 at 04:30 Tramadol HCl (Ultram) 50 mg Q4H PRN PO MILD-MODERATE PAIN LEVEL 1-6 Last administered on 10/07/18at 15:37; Admin Dose 50 MG; Start 10/07/18 at 10:10 Tramadol HCl (Ultram) 100 mg Q4H PRN PO SEVERE PAIN LEVEL 7-10; Start 10/07/18 at 10:30 SAMANTHA LEONARD October 07, 2018 18:10
[2018-10-07 20:00] VITALS: BP 119/59; PULSE 76; RESP 18
[2018-10-07] MEDS: ZOLPIDEM 5 MG TAB PO PRN (20:28)
[2018-10-07] MEDS: SENNA TAB PO SCH (20:29)
[2018-10-07] MEDS: DIPHENHYDRAMINE 25 MG CAP PO PRN (22:15)
[2018-10-08] MEDS: traMADol 50 MG TAB PO PRN ×5 (00:45→21:11)
[2018-10-08 02:00] VITALS: BP 124/62; PULSE 72; RESP 18
[2018-10-08] MEDS ORDERED: GUAIFENESIN/DM 5ML CUP PO PRN (04:00)
[2018-10-08] MEDS ORDERED: PENDING SANTYL ORDER FOR WOUND CARE XX PRN (04:30)
--- NOTE | 2018-10-08 05:42 | PN ---
Date/Time of Note Date/Time of Note DATE: 10/08/18 TIME: 05:40 Assessment/Plan VTE Prophylaxis Risk score (from Nsg)>0 risk: 4 SCD applied (from Nsg): Yes Lines/Catheters IV Catheter Type (from Nrsg): Saline Lock Assessment/Plan Assessment/Plan - Pulmonary Debility - admit to Rehab - PT/OT evaluation today - Speech/Swallow eval today - RML ground glass lesion - per Oncology/Hem - UTI - Rocephin - Fracture of the left proximal humerus. 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 - Drug Allergy -Penicillin -Sulfa - GERD - ppi - Generalized weakness - PT /OT eval - Hx Heart attack; Sp stent placement - cardiology consult - Former smoker - reinforce smoking cessation - provide smoking cessation - SCD for DVT prophylaxis Patient is seen in collaboration with Dr Awan Result Diagram: 10/06/1858 10/06/18 0558 Subjective 24 Hr Interval Summary Free Text/Dictation - AFB sputum pending Constitutional: requiring O2 Exam/Review of Systems Exam Vitals Vital Signs Date Temp Pulse Resp B/P (MAP) Pulse Ox O2 O2 Flow FiO2 Time Delivery Rate 10/08/18 97.9 72 18 124/62 94 Room Air 02:00 (82) 10/06/18 21 14:58 Intake and Output 10/07/18 10/07/18 10/08/18 1515:00 23:00 07:00 IntakeIntake Total 50 ml 600 ml BalanceBalance 50 ml 600 ml Medications Medication Current Medications Non-Formulary Medication 2 ea BID INH Last administered on 10/07/18at 21:00; Admin Dose 2 EA; Start 10/05/18 at 22:11 Non-Formulary Medication 2 ea BID PRN INH WHEEZING AND SOB; Start 10/05/18 at 22:11 Nicotine (Nicoderm 14 Mg/ 24hr) 1 patch DAILY TRANSDERM Last administered on 10/07/18at 09:28; Admin Dose 1 PATCH; Start 10/05/18 at 22:11 Pantoprazole (Protonix Tab) 40 mg BID@06,18 PO Last administered on 10/07/18 20:27; Admin Dose 40 MG; Start 10/05/18 at 22:11 Aspirin (Aspirin) 81 mg DAILY PO Last administered on 10/07/18 09:24; Admin Dose 81 MG; Start 10/05/18 at 22:11 Ceftriaxone Sodium 50 ml @ 100 mls/hr Q24H IVPB Last administered on 10/07/18 11:19; Admin Dose 100 MLS/HR; Start 10/06/18 at 10:00; Stop 10/10/18 at 10:29 Lactulose (Enulose) 20 gm DAILY PRN PO CONSTIPATION; Start 10/05/18 at 22:30 Acetaminophen (Tylenol Tab) 650 mg Q4H PRN PO MILD PAIN(1-3)OR ELEVATED TEMP; Start 10/05/18 at 23:00 Albuterol (Proventil 0.083% (Neb)) 2.5 mg TID RESP THERAPY HHN Last administered on 10/06/18at 14:54; Admin Dose 2.5 MG; Start 10/05/18 at 23:00 Amlodipine Besylate (Norvasc) 5 mg BID PO Last administered on 10/07/18 20:29; Admin Dose 5 MG; Start 10/05/18 at 23:00 Bisacodyl (Dulcolax) 10 mg DAILY PRN PO CONSTIPATION; Start 10/05/18 at 23:30 Calcium Carbonate (Tums) 500 mg Q4H PRN PO HEARTBURN; Start 10/05/18 at 23:30 Docusate Sodium (Colace) 100 mg BID PO Last administered on 10/07/18 20:28; Admin Dose 100 MG; Start 10/05/18 at 23:01 Guaifenesin (Mucinex) 600 mg BID PO ; Start 10/05/18 at 23:02 Magnesium Hydroxide (Milk Of Mag) 30 ml BID PRN PO CONSTIPATION; Start 10/05/18 at 23:30 Metoprolol Tartrate (Lopressor) 25 mg BID PO Last administered on 10/07/18 20:28; Admin Dose 25 MG; Start 10/05/18 at 23:02 Senna (Senokot) 1 tab HS PO Last administered on 10/07/18 20:29; Admin Dose 1 TAB; Start 10/05/18 at 23:04 Zolpidem Tartrate (Ambien) 5 mg HS MAY REPEAT X 1 PRN PO INSOMNIA Last administered on 10/07/18 20:28; Admin Dose 5 MG; Start 10/05/18 at 23:05 Hydrocortisone (Hydrocortisone 1% Cr) 1 applic TID TOP Last administered on 10/07/18at 20:36; Admin Dose 1 APPLIC; Start 10/06/18 at 09:00 Diphenhydramine HCl (Benadryl) 25 mg Q6H PRN PO ITCHING Last administered on 10/07/18at 22:15; Admin Dose 25 MG; Start 10/06/18 at 04:30 Tramadol HCl (Ultram) 50 mg Q4H PRN PO MILD-MODERATE PAIN LEVEL 1-6 Last administered on 10/08/18at 00:45; Admin Dose 50 MG; Start 10/07/18 at 10:10 Tramadol HCl (Ultram) 100 mg Q4H PRN PO SEVERE PAIN LEVEL 7-10; Start 10/07/18 at 10:30 Guaifenesin/ Dextromethorphan (Robitussin Dm Liquid Cup) 10 ml Q6H PRN PO COUGH; Start 10/08/18 at 04:00 Miscellaneous Information (Pending Santyl Order For Wound Care) This patient sheikh... PRN PRN XX WOUND CARE; Start 10/08/18 at 04:30 DANUTA ARAUJO October 08, 2018 05:42
[2018-10-08] MEDS: PANTOPRAZOLE (EC) 40 MG TAB PO SCH ×2 (06:30→17:37)
[2018-10-08 07:30] VITALS: BP 134/66; PULSE 69; RESP 18
[2018-10-08] MEDS: HYDROCORTISONE 1% 28 GM CR TOP SCH ×3 (09:00→21:08)
[2018-10-08] MEDS: ALBUTEROL 0.083% (NEB) 2.5 MG/3 ML AMP HHN SCH ×3 (09:00→17:00)
[2018-10-08] MEDS: SPECIAL NON-STANDARD MEDICATION INH SCH ×2 (09:09→21:00)
[2018-10-08] MEDS: DOCUSATE SODIUM 100 MG CAP PO SCH ×2 (09:12→21:00)
[2018-10-08] MEDS: METOPROLOL 25 MG TAB PO SCH ×2 (09:12→21:08)
[2018-10-08] MEDS: ASPIRIN 81 MG TAB PO SCH (09:13)
[2018-10-08] MEDS: DIPHENHYDRAMINE 25 MG CAP PO PRN ×3 (09:13→21:07)
[2018-10-08] MEDS: AMLODIPINE 5 MG TAB PO SCH ×2 (09:13→21:00)
[2018-10-08] MEDS: GUAIFENESIN LA 600 MG TABSR PO SCH ×2 (09:13→21:00)
[2018-10-08] MEDS: NICOTINE (14 MG/24 HR) PATCH TRANSDERM SCH (09:13)
[2018-10-08] MEDS: CEFTRIAXONE 1 GM/50 ML (PMX) 50 ML IVPB SCH (09:15)
--- NOTE | 2018-10-08 10:16 | PN ---
Date/Time of Note Date/Time of Note DATE: 10/08/18 TIME: 10:15 Subjective Patient reports some pain Objective Vital Signs Date Temp Pulse Resp B/P (MAP) Pulse Ox O2 O2 Flow FiO2 Time Delivery Rate 10/08/18 97.8 69 18 134/66 95 Room Air 07:30 (88) 10/06/18 21 14:58 Intake and Output 10/07/18 10/07/18 10/08/18 1515:00 23:00 07:00 IntakeIntake Total 50 ml 600 ml BalanceBalance 50 ml 600 ml Exam pulm-cta abd-soft mod transfer Results/Medications Result Diagram: 10/08/18 0702 10/08/18 0701 Results 24 hrs Laboratory Tests Test 10/08/18 07:01 10/08/18 07:02 Sodium Level 140 Potassium Level 4.0 Chloride Level 104 Carbon Dioxide Level 28 Anion Gap 8 Blood Urea Nitrogen 18 Creatinine 0.76 Est Glomerular Filtrat Rate mL/min Glucose Level 98 Calcium Level 9.9 White Blood Count 8.9 Red Blood Count 4.20 Hemoglobin 12.1 Hematocrit 37.9 Mean Corpuscular Volume 90.2 Mean Corpuscular Hemoglobin 28.8 L Mean Corpuscular Hemoglobin Concent 31.9 L Red Cell Distribution Width 16.7 H Platelet Count 329 Mean Platelet Volume 10.7 H Immature Granulocytes % 0.300 Neutrophils % 74.2 Lymphocytes % 11.7 L Monocytes % 8.2 Eosinophils % 4.7 Basophils % 0.9 Nucleated Red Blood Cells % 0.0 Immature Granulocytes # 0.030 Neutrophils # 6.6 Lymphocytes # 1.1 Monocytes # 0.7 Eosinophils # 0.4 Basophils # 0.1 Nucleated Red Blood Cells # 0.0 Medications Current Medications Non-Formulary Medication 2 ea BID INH Last administered on 10/08/18at 09:09; Admin Dose 2 EA; Start 10/05/18 at 22:11 Non-Formulary Medication 2 ea BID PRN INH WHEEZING AND SOB; Start 10/05/18 at 22:11 Nicotine (Nicoderm 14 Mg/ 24hr) 1 patch DAILY TRANSDERM Last administered on 10/08/18at 09:13; Admin Dose 1 PATCH; Start 10/05/18 at 22:11 Pantoprazole (Protonix Tab) 40 mg BID@06,18 PO Last administered on 10/08/18at 06:30; Admin Dose 40 MG; Start 10/05/18 at 22:11 Aspirin (Aspirin) 81 mg DAILY PO Last administered on 10/08/18 09:13; Admin Dose 81 MG; Start 10/05/18 at 22:11 Ceftriaxone Sodium 50 ml @ 100 mls/hr Q24H IVPB Last administered on 10/08/18 09:15; Admin Dose 100 MLS/HR; Start 10/06/18 at 10:00; Stop 10/10/18 at 10:29 Lactulose (Enulose) 20 gm DAILY PRN PO CONSTIPATION; Start 10/05/18 at 22:30 Acetaminophen (Tylenol Tab) 650 mg Q4H PRN PO MILD PAIN(1-3)OR ELEVATED TEMP; Start 10/05/18 at 23:00 Albuterol (Proventil 0.083% (Neb)) 2.5 mg TID RESP THERAPY HHN Last administered on 10/06/18at 14:54; Admin Dose 2.5 MG; Start 10/05/18 at 23:00 Amlodipine Besylate (Norvasc) 5 mg BID PO Last administered on 10/08/18 09:13; Admin Dose 5 MG; Start 10/05/18 at 23:00 Bisacodyl (Dulcolax) 10 mg DAILY PRN PO CONSTIPATION; Start 10/05/18 at 23:30 Calcium Carbonate (Tums) 500 mg Q4H PRN PO HEARTBURN; Start 10/05/18 at 23:30 Docusate Sodium (Colace) 100 mg BID PO Last administered on 10/08/18 09:12; Admin Dose 100 MG; Start 10/05/18 at 23:01 Guaifenesin (Mucinex) 600 mg BID PO Last administered on 10/08/18 09:13; Admin Dose 600 MG; Start 10/05/18 at 23:02 Magnesium Hydroxide (Milk Of Mag) 30 ml BID PRN PO CONSTIPATION; Start 10/05/18 at 23:30 Metoprolol Tartrate (Lopressor) 25 mg BID PO Last administered on 10/08/18 09:12; Admin Dose 25 MG; Start 10/05/18 at 23:02 Senna (Senokot) 1 tab HS PO Last administered on 10/07/18 20:29; Admin Dose 1 TAB; Start 10/05/18 at 23:04 Zolpidem Tartrate (Ambien) 5 mg HS MAY REPEAT X 1 PRN PO INSOMNIA Last administered on 10/07/18 20:28; Admin Dose 5 MG; Start 10/05/18 at 23:05 Hydrocortisone (Hydrocortisone 1% Cr) 1 applic TID TOP Last administered on 10/07/18 20:36; Admin Dose 1 APPLIC; Start 10/06/18 at 09:00 Diphenhydramine HCl (Benadryl) 25 mg Q6H PRN PO ITCHING Last administered on 10/08/18 09:13; Admin Dose 25 MG; Start 10/06/18 at 04:30 Tramadol HCl (Ultram) 50 mg Q4H PRN PO MILD-MODERATE PAIN LEVEL 1-6 Last administered on 10/08/18 06:30; Admin Dose 50 MG; Start 10/07/18 at 10:10 Tramadol HCl (Ultram) 100 mg Q4H PRN PO SEVERE PAIN LEVEL 7-10 Last administered on 10/08/18 09:13; Admin Dose 100 MG; Start 10/07/18 at 10:30 Guaifenesin/ Dextromethorphan (Robitussin Dm Liquid Cup) 10 ml Q6H PRN PO COUGH; Start 10/08/18 at 04:00 [facility]isc[facility] This patient sheikh... PRN PRN XX WOUND CARE; Start 10/08/18 at 04:30 Assessment/Plan Additional Assessment/Plan Rehab- Pulmonary debility secondary to bronchopneumonia and COPD exacerbation; Left proximal humeral fracture, being treated conservatively Continue rehab plan. Await xray results Acute pain syndrome. History of adenocarcinoma. Hypertension. Hyperlipidemia. Gastroesophageal reflux disease. Left foot drop- family to bring in her AFO Coronary artery disease with history of stent. NUHA HUI MD October 08, 2018 10:16
[2018-10-08] MEDS: oxyCODONE 5 MG TAB PO PRN ×3 (13:02→23:55)
[2018-10-08 14:00] VITALS: BP 104/53; PULSE 74; RESP 20
--- NOTE | 2018-10-08 18:32 | CONS ---
Assessment/Plan Assessment/Plan Hospital Course (Demo Recall) IMP: 1.H/O stent-per patient last placed 06/2016-took plavix x 6 months. self d/c'd asa due to easy brusing. Tolerating now. NL EF by echo this admit 2.s/p fall-? mechanical 3.HTN-somewhat labile but overall reasonable 4. Humeral fx 5.H/O [place] 2006? 6.tobacco dependence Recc: -Continue baby asa as tolerated -Continue norvasc/BB -Continue abx's and f/u cx data -Pain control -Ongoing ortho eval with some improvement in arm swelling Consultation Date/Type/Reason Admit Date/Time Oct 05, 2018 at 21:11 Initial Consult Date 10/05/18 Type of Consult Cardiology Reason for Consultation HTN Requesting Provider: TONEY DEL CID MD Date/Time of Note DATE: 10/08/18 TIME: 18:30 Exam/Review of Systems Vital Signs Vitals Vital Signs Date Temp Pulse Resp B/P (MAP) Pulse Ox O2 O2 Flow FiO2 Time Delivery Rate 10/08/18 97.8 74 20 104/53 93 Room Air 14:00 (70) 10/08/18 21 13:45 Intake and Output 10/07/18 10/07/18 10/08/18 1515:00 23:00 07:00 IntakeIntake Total 50 ml 600 ml BalanceBalance 50 ml 600 ml Exam Exam Review of Systems: CONSTITUTIONAL: No fevers, chills. PULMONARY: No sob CARDIOVASCULAR: No chest pain/palpitations GASTROINTESTINAL: No nausea/vomiting. GENITOURINARY: No hematuria/dysuria. MUSCULOSKELETAL: pain in arm PSYCHIATRIC: The patient denies depression. NEUROLOGIC: No weakness Constitutional: alert Psych: no complaints Head: normocephalic ENMT: mucosa pink and moist Neck: supple, jvd (9 cm water) Respiratory: clear to auscultation Cardiovascular: regular rate and rhythm Gastrointestinal: soft, non-tender Musculoskeletal: muscle weakness (mild generalized) Extremities: edema (none), other (arm in sling) Labs Result Diagram: 10/08/18 0702 10/08/18 0701 Results 24hrs Laboratory Tests Test 10/08/18 07:01 10/08/18 07:02 Sodium Level 140 Potassium Level 4.0 Chloride Level 104 Carbon Dioxide Level 28 Anion Gap 8 Blood Urea Nitrogen 18 Creatinine 0.76 Est Glomerular Filtrat Rate mL/min Glucose Level 98 Calcium Level 9.9 White Blood Count 8.9 Red Blood Count 4.20 Hemoglobin 12.1 Hematocrit 37.9 Mean Corpuscular Volume 90.2 Mean Corpuscular Hemoglobin 28.8 L Mean Corpuscular Hemoglobin Concent 31.9 L Red Cell Distribution Width 16.7 H Platelet Count 329 Mean Platelet Volume 10.7 H Immature Granulocytes % 0.300 Neutrophils % 74.2 Lymphocytes % 11.7 L Monocytes % 8.2 Eosinophils % 4.7 Basophils % 0.9 Nucleated Red Blood Cells % 0.0 Immature Granulocytes # 0.030 Neutrophils # 6.6 Lymphocytes # 1.1 Monocytes # 0.7 Eosinophils # 0.4 Basophils # 0.1 Nucleated Red Blood Cells # 0.0 Medications Medications Current Medications Non-Formulary Medication 2 ea BID INH Last administered on 10/08/18 09:09; Admin Dose 2 EA; Start 10/05/18 at 22:11 Non-Formulary Medication 2 ea BID PRN INH WHEEZING AND SOB; Start 10/05/18 at 22:11 Nicotine (Nicoderm 14 Mg/ 24hr) 1 patch DAILY TRANSDERM Last administered on 10/08/18 09:13; Admin Dose 1 PATCH; Start 10/05/18 at 22:11 Pantoprazole (Protonix Tab) 40 mg BID@06,18 PO Last administered on 10/08/18 17:37; Admin Dose 40 MG; Start 10/05/18 at 22:11 Aspirin (Aspirin) 81 mg DAILY PO Last administered on 10/08/18 09:13; Admin Dose 81 MG; Start 10/05/18 at 22:11 Ceftriaxone Sodium 50 ml @ 100 mls/hr Q24H IVPB Last administered on 10/08/18 09:15; Admin Dose 100 MLS/HR; Start 10/06/18 at 10:00; Stop 10/10/18 at 10:29 Lactulose (Enulose) 20 gm DAILY PRN PO CONSTIPATION; Start 10/05/18 at 22:30 Acetaminophen (Tylenol Tab) 650 mg Q4H PRN PO MILD PAIN(1-3)OR ELEVATED TEMP; Start 10/05/18 at 23:00 Albuterol (Proventil 0.083% (Neb)) 2.5 mg TID RESP THERAPY N Last administered on 10/08/18 13:42; Admin Dose 2.5 MG; Start 10/05/18 at 23:00 Amlodipine Besylate (Norvasc) 5 mg BID PO Last administered on 10/08/18 09:13; Admin Dose 5 MG; Start 10/05/18 at 23:00 Bisacodyl (Dulcolax) 10 mg DAILY PRN PO CONSTIPATION; Start 10/05/18 at 23:30 Calcium Carbonate (Tums) 500 mg Q4H PRN PO HEARTBURN; Start 10/05/18 at 23:30 Docusate Sodium (Colace) 100 mg BID PO Last administered on 10/08/18 09:12; Admin Dose 100 MG; Start 10/05/18 at 23:01 Guaifenesin (Mucinex) 600 mg BID PO Last administered on 10/08/18 09:13; Admin Dose 600 MG; Start 10/05/18 at 23:02 Magnesium Hydroxide (Milk Of Mag) 30 ml BID PRN PO CONSTIPATION; Start 10/05/18 at 23:30 Metoprolol Tartrate (Lopressor) 25 mg BID PO Last administered on 10/08/18 09:12; Admin Dose 25 MG; Start 10/05/18 at 23:02 Senna (Senokot) 1 tab HS PO Last administered on 10/07/18 20:29; Admin Dose 1 TAB; Start 10/05/18 at 23:04 Zolpidem Tartrate (Ambien) 5 mg HS MAY REPEAT X 1 PRN PO INSOMNIA Last administered on 10/07/18 20:28; Admin Dose 5 MG; Start 10/05/18 at 23:05 Hydrocortisone (Hydrocortisone 1% Cr) 1 applic TID TOP Last administered on 10/08/18 13:02; Admin Dose 1 APPLIC; Start 10/06/18 at 09:00 Diphenhydramine HCl (Benadryl) 25 mg Q6H PRN PO ITCHING Last administered on 10/08/18 15:51; Admin Dose 25 MG; Start 10/06/18 at 04:30 Tramadol HCl (Ultram) 50 mg Q4H PRN PO BREAKTHROUGH PAIN Last administered on 10/08/18 06:30; Admin Dose 50 MG; Start 10/07/18 at 10:10 Tramadol HCl (Ultram) 100 mg Q4H PRN PO MODERATE PAIN LEVEL 4-6 Last administered on 10/08/18at 15:51; Admin Dose 100 MG; Start 10/07/18 at 10:30 Guaifenesin/ Dextromethorphan (Robitussin Dm Liquid Cup) 10 ml Q6H PRN PO COUGH; Start 10/08/18 at 04:00 Miscellaneous Information (Pending Santyl Order For Wound Care) This patient sheikh... PRN PRN XX WOUND CARE; Start 10/08/18 at 04:30 Oxycodone HCl (Roxicodone) 10 mg Q6H PRN PO SEVERE PAIN LEVEL 7-10 Last administered on 10/08/18at 17:37; Admin Dose 10 MG; Start 10/08/18 at 11:00 SAMANTHA LEONARD October 08, 2018 18:32
[2018-10-08 19:50] VITALS: BP 107/55; PULSE 67; RESP 18
[2018-10-08] MEDS: SENNA TAB PO SCH (21:00)
[2018-10-08] MEDS: ZOLPIDEM 5 MG TAB PO PRN (23:55)
[2018-10-09 02:37] VITALS: BP 105/58; PULSE 65; RESP 18
[2018-10-09] MEDS: PANTOPRAZOLE (EC) 40 MG TAB PO SCH ×2 (06:43→18:47)
[2018-10-09] MEDS: oxyCODONE 5 MG TAB PO PRN ×2 (06:44→13:57)
[2018-10-09] MEDS: GUAIFENESIN LA 600 MG TABSR PO SCH ×2 (09:00→20:40)
[2018-10-09] MEDS: DOCUSATE SODIUM 100 MG CAP PO SCH ×2 (09:00→20:40)
[2018-10-09] MEDS: ASPIRIN 81 MG TAB PO SCH (09:37)
[2018-10-09] MEDS: NICOTINE (14 MG/24 HR) PATCH TRANSDERM SCH (09:37)
[2018-10-09] MEDS: METOPROLOL 25 MG TAB PO SCH ×2 (09:38→20:39)
[2018-10-09] MEDS: HYDROCORTISONE 1% 28 GM CR TOP SCH ×3 (09:38→20:39)
[2018-10-09] MEDS: AMLODIPINE 5 MG TAB PO SCH ×2 (09:39→20:37)
[2018-10-09] MEDS: CEFTRIAXONE 1 GM/50 ML (PMX) 50 ML IVPB SCH (09:39)
[2018-10-09] MEDS: SPECIAL NON-STANDARD MEDICATION INH SCH ×2 (09:40→20:42)
[2018-10-09] MEDS: ALBUTEROL 0.083% (NEB) 2.5 MG/3 ML AMP HHN SCH ×3 (09:42→17:36)
--- NOTE | 2018-10-09 11:36 | PN ---
Date/Time of Note Date/Time of Note DATE: 10/09/18 TIME: 11:36 Subjective No new complaints Objective Vital Signs Date Temp Pulse Resp B/P (MAP) Pulse Ox O2 O2 Flow FiO2 Time Delivery Rate 10/09/18 74 19 96 21 09:52 10/09/18 98.1 105/58 Room Air 02:37 (74) Intake and Output 10/08/18 10/08/18 10/09/18 1515:00 23:00 07:00 IntakeIntake Total 250 ml 820 ml OutputOutput Total 450 ml BalanceBalance -200 ml 820 ml Exam min transfer min amb 75 feet [id number] Results/Medications Result Diagram: 10/08/18 0710/08/18 07 Medications Current Medications Non-Formulary Medication 2 ea BID INH Last administered on 10/09/18 09:40; Admin Dose 2 EA; Start 10/05/18 at 22:11 Non-Formulary Medication 2 ea BID PRN INH WHEEZING AND SOB; Start 10/05/18 at 22:11 Nicotine (Nicoderm 14 Mg/ 24hr) 1 patch DAILY TRANSDERM Last administered on 10/09/18 09:37; Admin Dose 1 PATCH; Start 10/05/18 at 22:11 Pantoprazole (Protonix Tab) 40 mg BID@06,18 PO Last administered on 10/09/18 06:43; Admin Dose 40 MG; Start 10/05/18 at 22:11 Aspirin (Aspirin) 81 mg DAILY PO Last administered on 10/09/18 09:37; Admin Dose 81 MG; Start 10/05/18 at 22:11 Ceftriaxone Sodium 50 ml @ 100 mls/hr Q24H IVPB Last administered on 10/09/18 09:39; Admin Dose 100 MLS/HR; Start 10/06/18 at 10:00; Stop 10/10/18 at 10:29 Lactulose (Enulose) 20 gm DAILY PRN PO CONSTIPATION; Start 10/05/18 at 22:30 Acetaminophen (Tylenol Tab) 650 mg Q4H PRN PO MILD PAIN(1-3)OR ELEVATED TEMP; Start 10/05/18 at 23:00 Albuterol (Proventil 0.083% (Neb)) 2.5 mg TID RESP THERAPY HHN Last administered on 10/09/18 09:42; Admin Dose 2.5 MG; Start 10/05/18 at 23:00 Amlodipine Besylate (Norvasc) 5 mg BID PO Last administered on 10/09/18 09:39; Admin Dose 5 MG; Start 10/05/18 at 23:00 Bisacodyl (Dulcolax) 10 mg DAILY PRN PO CONSTIPATION; Start 10/05/18 at 23:30 Calcium Carbonate (Tums) 500 mg Q4H PRN PO HEARTBURN; Start 10/05/18 at 23:30 Docusate Sodium (Colace) 100 mg BID PO Last administered on 10/08/18 09:12; Admin Dose 100 MG; Start 10/05/18 at 23:01 Guaifenesin (Mucinex) 600 mg BID PO Last administered on 10/08/18 09:13; Admin Dose 600 MG; Start 10/05/18 at 23:02 Magnesium Hydroxide (Milk Of Mag) 30 ml BID PRN PO CONSTIPATION; Start 10/05/18 at 23:30 Metoprolol Tartrate (Lopressor) 25 mg BID PO Last administered on 10/09/18 09:38; Admin Dose 25 MG; Start 10/05/18 at 23:02 Senna (Senokot) 1 tab HS PO Last administered on 10/07/18 20:29; Admin Dose 1 TAB; Start 10/05/18 at 23:04 Zolpidem Tartrate (Ambien) 5 mg HS MAY REPEAT X 1 PRN PO INSOMNIA Last administered on 10/08/18 23:55; Admin Dose 5 MG; Start 10/05/18 at 23:05 Hydrocortisone (Hydrocortisone 1% Cr) 1 applic TID TOP Last administered on 10/09/18 09:38; Admin Dose 1 APPLIC; Start 10/06/18 at 09:00 Diphenhydramine HCl (Benadryl) 25 mg Q6H PRN PO ITCHING Last administered on 10/08/18 21:07; Admin Dose 25 MG; Start 10/06/18 at 04:30 Tramadol HCl (Ultram) 50 mg Q4H PRN PO BREAKTHROUGH PAIN Last administered on 10/08/18 06:30; Admin Dose 50 MG; Start 10/07/18 at 10:10 Tramadol HCl (Ultram) 100 mg Q4H PRN PO MODERATE PAIN LEVEL 4-6 Last administered on 10/08/18at 21:11; Admin Dose 100 MG; Start 10/07/18 at 10:30 Guaifenesin/ Dextromethorphan (Robitussin Dm Liquid Cup) 10 ml Q6H PRN PO COUGH; Start 10/08/18 at 04:00 Miscellaneous Information (Pending Santyl Order For Wound Care) This patient sheikh... PRN PRN XX WOUND CARE; Start 10/08/18 at 04:30 Oxycodone HCl (Roxicodone) 10 mg Q6H PRN PO SEVERE PAIN LEVEL 7-10 Last administered on 10/09/18at 06:44; Admin Dose 10 MG; Start 10/08/18 at 11:00 Assessment/Plan Additional Assessment/Plan Rehab- Pulmonary debility secondary to bronchopneumonia and COPD exacerbation; Left proximal humeral fracture, being treated conservatively Continue rehab treatment Acute pain syndrome-continue current minnie History of adenocarcinoma. Hypertension. Hyperlipidemia. Gastroesophageal reflux disease. Left foot drop- AFO Coronary artery disease with history of stent. NUHA HUI MD October 09, 2018 11:36
--- NOTE | 2018-10-09 12:39 | PN ---
Date/Time of Note Date/Time of Note DATE: 10/09/18 TIME: 12:38 Assessment/Plan VTE Prophylaxis Risk score (from Ns)>0 risk: 7 SCD applied (from Ns): No SCD contraindicated: other Pharmacological prophylaxis: LMWH Lines/Catheters IV Catheter Type (from Nrsg): Saline Lock Assessment/Plan Hospital Course - Pulmonary Debility - admit to Rehab - PT/OT evaluation today - Speech/Swallow eval today - RML ground glass lesion - per Oncology/Hem - UTI - Rocephin - Fracture of the left proximal humerus. 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 - Drug Allergy -Penicillin -Sulfa - GERD - ppi - Generalized weakness - PT /OT eval - Hx Heart attack; Sp stent placement - cardiology consult - Former smoker - reinforce smoking cessation - provide smoking cessation - SCD for DVT prophylaxis Result Diagram: 10/08/18 0702 10/08/18 0701 Subjective 24 Hr Interval Summary Free Text/Dictation Patient complains of pain in left arm Exam/Review of Systems Exam Vitals Vital Signs Date Temp Pulse Resp B/P (MAP) Pulse Ox O2 O2 Flow FiO2 Time Delivery Rate 10/09/18 74 19 96 21 09:52 10/09/18 98.1 105/58 Room Air 02:37 (74) Intake and Output 10/08/18 10/08/18 10/09/18 1515:00 23:00 07:00 IntakeIntake Total 250 ml 820 ml OutputOutput Total 450 ml BalanceBalance -200 ml 820 ml Constitutional: well developed Head: normocephalic, atraumatic Neck: supple Respiratory: diminished breath sounds Cardiovascular: regular rate and rhythm Gastrointestinal: soft, non-tender Extremities: normal pulses Medications Medication Current Medications Non-Formulary Medication 2 ea BID INH Last administered on 10/09/18at 09:40; Admin Dose 2 EA; Start 10/05/18 at 22:11 Non-Formulary Medication 2 ea BID PRN INH WHEEZING AND SOB; Start 10/05/18 at 22:11 Nicotine (Nicoderm 14 Mg/ 24hr) 1 patch DAILY TRANSDERM Last administered on 10/09/18 09:37; Admin Dose 1 PATCH; Start 10/05/18 at 22:11 Pantoprazole (Protonix Tab) 40 mg BID@06,18 PO Last administered on 10/09/18 06:43; Admin Dose 40 MG; Start 10/05/18 at 22:11 Aspirin (Aspirin) 81 mg DAILY PO Last administered on 10/09/18 09:37; Admin Dose 81 MG; Start 10/05/18 at 22:11 Ceftriaxone Sodium 50 ml @ 100 mls/hr Q24H IVPB Last administered on 10/09/18 09:39; Admin Dose 100 MLS/HR; Start 10/06/18 at 10:00; Stop 10/10/18 at 10:29 Lactulose (Enulose) 20 gm DAILY PRN PO CONSTIPATION; Start 10/05/18 at 22:30 Acetaminophen (Tylenol Tab) 650 mg Q4H PRN PO MILD PAIN(1-3)OR ELEVATED TEMP; Start 10/05/18 at 23:00 Albuterol (Proventil 0.083% (Neb)) 2.5 mg TID RESP THERAPY HHN Last administered on 10/09/18 09:42; Admin Dose 2.5 MG; Start 10/05/18 at 23:00 Amlodipine Besylate (Norvasc) 5 mg BID PO Last administered on 10/09/18 09:39; Admin Dose 5 MG; Start 10/05/18 at 23:00 Bisacodyl (Dulcolax) 10 mg DAILY PRN PO CONSTIPATION; Start 10/05/18 at 23:30 Calcium Carbonate (Tums) 500 mg Q4H PRN PO HEARTBURN; Start 10/05/18 at 23:30 Docusate Sodium (Colace) 100 mg BID PO Last administered on 10/08/18 09:12; Admin Dose 100 MG; Start 10/05/18 at 23:01 Guaifenesin (Mucinex) 600 mg BID PO Last administered on 10/08/18 09:13; Admin Dose 600 MG; Start 10/05/18 at 23:02 Magnesium Hydroxide (Milk Of Mag) 30 ml BID PRN PO CONSTIPATION; Start 10/05/18 at 23:30 Metoprolol Tartrate (Lopressor) 25 mg BID PO Last administered on 10/09/18 09:38; Admin Dose 25 MG; Start 10/05/18 at 23:02 Senna (Senokot) 1 tab HS PO Last administered on 10/07/18 20:29; Admin Dose 1 TAB; Start 10/05/18 at 23:04 Zolpidem Tartrate (Ambien) 5 mg HS MAY REPEAT X 1 PRN PO INSOMNIA Last administered on 10/08/18 23:55; Admin Dose 5 MG; Start 10/05/18 at 23:05 Hydrocortisone (Hydrocortisone 1% Cr) 1 applic TID TOP Last administered on 10/09/18 09:38; Admin Dose 1 APPLIC; Start 10/06/18 at 09:00 Diphenhydramine HCl (Benadryl) 25 mg Q6H PRN PO ITCHING Last administered on 10/08/18 21:07; Admin Dose 25 MG; Start 10/06/18 at 04:30 Tramadol HCl (Ultram) 50 mg Q4H PRN PO BREAKTHROUGH PAIN Last administered on 10/08/18 06:30; Admin Dose 50 MG; Start 10/07/18 at 10:10 Tramadol HCl (Ultram) 100 mg Q4H PRN PO MODERATE PAIN LEVEL 4-6 Last admin istered on 10/08/18 21:11; Admin Dose 100 MG; Start 10/07/18 at 10:30 Guaifenesin/ Dextromethorphan (Robitussin Dm Liquid Cup) 10 ml Q6H PRN PO COUGH; Start 10/08/18 at 04:00 [facility] This patient sheikh... PRN PRN XX WOUND CARE; Start 10/08/18 at 04:30 Oxycodone HCl (Roxicodone) 10 mg Q6H PRN PO SEVERE PAIN LEVEL 7-10 Last administered on 10/09/18 06:44; Admin Dose 10 MG; Start 10/08/18 at 11:00 PAVITHRA MELÉNDEZ October 09, 2018 12:39
--- NOTE | 2018-10-09 13:58 | CONS ---
Assessment/Plan Assessment/Plan Hospital Course (Demo Recall) IMP: 1.H/O stent-per patient last placed 06/2016-took plavix x 6 months. self d/c'd asa due to easy brusing. Tolerating now. NL EF by echo this admit 2.s/p fall-? mechanical 3.HTN-somewhat labile but overall reasonable 4. Humeral fx 5.H/O [place] 2006? 6.tobacco dependence Recc: -Continue baby asa as tolerated -Continue norvasc/BB -Continue abx's and f/u cx data -Pain control -Ongoing ortho eval with some improvement in arm swelling but ongoing pain Consultation Date/Type/Reason Admit Date/Time Oct 05, 2018 at 21:11 Initial Consult Date 10/05/18 Type of Consult Cardiology Reason for Consultation HTN Requesting Provider: TONEY DEL CID MD Date/Time of Note DATE: 10/09/18 TIME: 13:55 Exam/Review of Systems Vital Signs Vitals Vital Signs Date Temp Pulse Resp B/P (MAP) Pulse Ox O2 O2 Flow FiO2 Time Delivery Rate 10/09/18 71 18 95 21 13:03 10/09/18 98.1 105/58 Room Air 02:37 (74) Intake and Output 10/08/18 10/08/18 10/09/18 1414:59 22:59 06:59 IntakeIntake Total 250 ml 820 ml OutputOutput Total 450 ml BalanceBalance -200 ml 820 ml Exam Exam Review of Systems: CONSTITUTIONAL: No fevers, chills. PULMONARY: No sob CARDIOVASCULAR: No chest pain/palpitations GASTROINTESTINAL: No nausea/vomiting. GENITOURINARY: No hematuria/dysuria. MUSCULOSKELETAL: pain in arm PSYCHIATRIC: The patient denies depression. NEUROLOGIC: No weakness Constitutional: alert Psych: no complaints Head: normocephalic ENMT: mucosa pink and moist Neck: supple, jvd (9 cm water) Respiratory: diminished breath sounds (at bases/B) Cardiovascular: regular rate and rhythm Gastrointestinal: soft, non-tender Musculoskeletal: muscle tone (normal) Extremities: edema (none) Neurological: other (No focal deficits) Labs Result Diagram: 10/08/18 0702 10/08/18 0701 Medications Medications Current Medications Non-Formulary Medication 2 ea BID INH Last administered on 10/09/18at 09:40; Admin Dose 2 EA; Start 10/05/18 at 22:11 Non-Formulary Medication 2 ea BID PRN INH WHEEZING AND SOB; Start 10/05/18 at 22:11 Nicotine (Nicoderm 14 Mg/ 24hr) 1 patch DAILY TRANSDERM Last administered on 10/09/18 09:37; Admin Dose 1 PATCH; Start 10/05/18 at 22:11 Pantoprazole (Protonix Tab) 40 mg BID@06,18 PO Last administered on 10/09/18 06:43; Admin Dose 40 MG; Start 10/05/18 at 22:11 Aspirin (Aspirin) 81 mg DAILY PO Last administered on 10/09/18 09:37; Admin Dose 81 MG; Start 10/05/18 at 22:11 Ceftriaxone Sodium 50 ml @ 100 mls/hr Q24H IVPB Last administered on 10/09/18 09:39; Admin Dose 100 MLS/HR; Start 10/06/18 at 10:00; Stop 10/10/18 at 10:29 Lactulose (Enulose) 20 gm DAILY PRN PO CONSTIPATION; Start 10/05/18 at 22:30 Acetaminophen (Tylenol Tab) 650 mg Q4H PRN PO MILD PAIN(1-3)OR ELEVATED TEMP; Start 10/05/18 at 23:00 Albuterol (Proventil 0.083% (Neb)) 2.5 mg TID RESP THERAPY HHN Last administered on 10/09/18 12:54; Admin Dose 2.5 MG; Start 10/05/18 at 23:00 Amlodipine Besylate (Norvasc) 5 mg BID PO Last administered on 10/09/18 09:39; Admin Dose 5 MG; Start 10/05/18 at 23:00 Bisacodyl (Dulcolax) 10 mg DAILY PRN PO CONSTIPATION; Start 10/05/18 at 23:30 Calcium Carbonate (Tums) 500 mg Q4H PRN PO HEARTBURN; Start 10/05/18 at 23:30 Docusate Sodium (Colace) 100 mg BID PO Last administered on 10/08/18 09:12; Admin Dose 100 MG; Start 10/05/18 at 23:01 Guaifenesin (Mucinex) 600 mg BID PO Last administered on 10/08/18 09:13; Admin Dose 600 MG; Start 10/05/18 at 23:02 Magnesium Hydroxide (Milk Of Mag) 30 ml BID PRN PO CONSTIPATION; Start 10/05/18 at 23:30 Metoprolol Tartrate (Lopressor) 25 mg BID PO Last administered on 10/09/18 09:38; Admin Dose 25 MG; Start 10/05/18 at 23:02 Senna (Senokot) 1 tab HS PO Last administered on 10/07/18 20:29; Admin Dose 1 TAB; Start 10/05/18 at 23:04 Zolpidem Tartrate (Ambien) 5 mg HS MAY REPEAT X 1 PRN PO INSOMNIA Last administered on 10/08/18 23:55; Admin Dose 5 MG; Start 10/05/18 at 23:05 Hydrocortisone (Hydrocortisone 1% Cr) 1 applic TID TOP Last administered on 10/09/18 09:38; Admin Dose 1 APPLIC; Start 10/06/18 at 09:00 Diphenhydramine HCl (Benadryl) 25 mg Q6H PRN PO ITCHING Last administered on 10/08/18 21:07; Admin Dose 25 MG; Start 10/06/18 at 04:30 Tramadol HCl (Ultram) 50 mg Q4H PRN PO BREAKTHROUGH PAIN Last administered on 10/08/18 06:30; Admin Dose 50 MG; Start 10/07/18 at 10:10 Tramadol HCl (Ultram) 100 mg Q4H PRN PO MODERATE PAIN LEVEL 4-6 Last administered on 10/08/18 21:11; Admin Dose 100 MG; Start 10/07/18 at 10:30 Guaifenesin/ Dextromethorphan (Robitussin Dm Liquid Cup) 10 ml Q6H PRN PO COUGH; Start 10/08/18 at 04:00 Miscellaneous Information (Pending Santyl Order For Wound Care) This patient sheikh... PRN PRN XX WOUND CARE; Start 10/08/18 at 04:30 Oxycodone HCl (Roxicodone) 10 mg Q6H PRN PO SEVERE PAIN LEVEL 7-10 Last administered on 10/09/18 06:44; Admin Dose 10 MG; Start 10/08/18 at 11:00 SAMANTHA LEONARD October 09, 2018 13:58
[2018-10-09 15:00] VITALS: BP 120/56; PULSE 76; RESP 16
[2018-10-09] MEDS: traMADol 50 MG TAB PO PRN ×2 (16:58→22:10)
[2018-10-09 20:04] VITALS: BP 116/55; PULSE 78; RESP 18
[2018-10-09] MEDS: SENNA TAB PO SCH (20:39)
[2018-10-09] MEDS: ZOLPIDEM 5 MG TAB PO PRN (23:02)
[2018-10-10 02:53] VITALS: BP 139/87; PULSE 80; RESP 17
[2018-10-10] MEDS: PANTOPRAZOLE (EC) 40 MG TAB PO SCH ×2 (05:23→17:28)
[2018-10-10] MEDS: traMADol 50 MG TAB PO PRN ×2 (05:24→17:29)
[2018-10-10 07:00] VITALS: BP 136/70; PULSE 82; RESP 18
[2018-10-10] MEDS: GUAIFENESIN LA 600 MG TABSR PO SCH ×2 (09:00→20:47)
[2018-10-10] MEDS: SPECIAL NON-STANDARD MEDICATION INH SCH ×2 (09:00→21:00)
[2018-10-10] MEDS: ALBUTEROL 0.083% (NEB) 2.5 MG/3 ML AMP HHN SCH ×3 (09:15→16:33)
[2018-10-10] MEDS: DOCUSATE SODIUM 100 MG CAP PO SCH ×2 (10:03→20:47)
[2018-10-10] MEDS: ASPIRIN 81 MG TAB PO SCH (10:04)
[2018-10-10] MEDS: oxyCODONE 5 MG TAB PO PRN ×2 (10:04→20:39)
[2018-10-10] MEDS: AMLODIPINE 5 MG TAB PO SCH ×2 (10:05→20:39)
[2018-10-10] MEDS: METOPROLOL 25 MG TAB PO SCH ×2 (10:05→20:39)
[2018-10-10] MEDS: HYDROCORTISONE 1% 28 GM CR TOP SCH ×3 (10:06→20:40)
[2018-10-10] MEDS: NICOTINE (14 MG/24 HR) PATCH TRANSDERM SCH (10:07)
[2018-10-10] MEDS: CEFTRIAXONE 1 GM/50 ML (PMX) 50 ML IVPB SCH (11:06)
--- NOTE | 2018-10-10 13:16 | PN ---
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 - Drug Allergy -Penicillin -Sulfa - GERD - ppi - Generalized weakness - PT /OT eval - Hx Heart attack; Sp stent placement - cardiology consult - Former smoker - reinforce smoking cessation - provide smoking cessation - SCD for DVT prophylaxis Result Diagram: 10/08/18 0702 10/08/18 0701 Subjective 24 Hr Interval Summary Free Text/Dictation Left arm is doing better, working well with therapy Exam/Review of Systems Exam Vitals Vital Signs Date Temp Pulse Resp B/P (MAP) Pulse Ox O2 O2 Flow FiO2 Time Delivery Rate 10/10/18 71 18 95 21 12:57 10/10/18 Nasal 09:25 Cannula 10/10/18 98.3 136/70 07:00 (92) Intake and Output 10/09/18 10/09/18 10/10/18 1515:00 23:00 07:00 IntakeIntake Total 50 ml OutputOutput Total 400 ml BalanceBalance 50 ml -400 ml Constitutional: well developed Head: normocephalic, atraumatic Neck: supple Respiratory: clear to auscultation Cardiovascular: regular rate and rhythm Gastrointestinal: soft, non-tender Extremities: normal pulses Medications Medication Current Medications Non-Formulary Medication 2 ea BID INH Last administered on 10/09/18at 09:40; Admin Dose 2 EA; Start 10/05/18 at 22:11 Non-Formulary Medication 2 ea BID PRN INH WHEEZING AND SOB; Start 10/05/18 at 22:11 Nicotine (Nicoderm 14 Mg/ 24hr) 1 patch DAILY TRANSDERM Last administered on 10/10/18 10:07; Admin Dose 1 PATCH; Start 10/05/18 at 22:11 Pantoprazole (Protonix Tab) 40 mg BID@06,18 PO Last administered on 10/10/18 05:23; Admin Dose 40 MG; Start 10/05/18 at 22:11 Aspirin (Aspirin) 81 mg DAILY PO Last administered on 10/10/18 10:04; Admin Dose 81 MG; Start 10/05/18 at 22:11 Lactulose (Enulose) 20 gm DAILY PRN PO CONSTIPATION; Start 10/05/18 at 22:30 Acetaminophen (Tylenol Tab) 650 mg Q4H PRN PO MILD PAIN(1-3)OR ELEVATED TEMP; Start 10/05/18 at 23:00 Albuterol (Proventil 0.083% (Neb)) 2.5 mg TID RESP THERAPY HHN Last administered on 10/10/18 12:47; Admin Dose 2.5 MG; Start 10/05/18 at 23:00 Amlodipine Besylate (Norvasc) 5 mg BID PO Last administered on 10/10/18 10:05; Admin Dose 5 MG; Start 10/05/18 at 23:00 Bisacodyl (Dulcolax) 10 mg DAILY PRN PO CONSTIPATION; Start 10/05/18 at 23:30 Calcium Carbonate (Tums) 500 mg Q4H PRN PO HEARTBURN; Start 10/05/18 at 23:30 Docusate Sodium (Colace) 100 mg BID PO Last administered on 10/10/18 10:03; Admin Dose 100 MG; Start 10/05/18 at 23:01 Guaifenesin (Mucinex) 600 mg BID PO Last administered on 10/08/18 09:13; Admin Dose 600 MG; Start 10/05/18 at 23:02 Magnesium Hydroxide (Milk Of Mag) 30 ml BID PRN PO CONSTIPATION; Start 10/05/18 at 23:30 Metoprolol Tartrate (Lopressor) 25 mg BID PO Last administered on 10/10/18 10:05; Admin Dose 25 MG; Start 10/05/18 at 23:02 Senna (Senokot) 1 tab HS PO Last administered on 10/07/18 20:29; Admin Dose 1 TAB; Start 10/05/18 at 23:04 Zolpidem Tartrate (Ambien) 5 mg HS MAY REPEAT X 1 PRN PO INSOMNIA Last administered on 10/09/18 23:02; Admin Dose 5 MG; Start 10/05/18 at 23:05 Hydrocortisone (Hydrocortisone 1% Cr) 1 applic TID TOP Last administered on 10/10/18 13:06; Admin Dose 1 APPLIC; Start 10/06/18 at 09:00 Diphenhydramine HCl (Benadryl) 25 mg Q6H PRN PO ITCHING Last administered on 10/08/18 21:07; Admin Dose 25 MG; Start 10/06/18 at 04:30 Tramadol HCl (Ultram) 50 mg Q4H PRN PO BREAKTHROUGH PAIN Last administered on 10/08/18 06:30; Admin Dose 50 MG; Start 10/07/18 at 10:10 Tramadol HCl (Ultram) 100 mg Q4H PRN PO MODERATE PAIN LEVEL 4-6 Last administered on 10/10/18 05:24; Admin Dose 100 MG; Start 10/07/18 at 10:30 Guaifenesin/ Dextromethorphan (Robitussin Dm Liquid Cup) 10 ml Q6H PRN PO COUGH; Start 10/08/18 at 04:00 Miscellaneous Information (Pending Santyl Order For Wound Care) This patient sheikh... PRN PRN XX WOUND CARE; Start 10/08/18 at 04:30 Oxycodone HCl (Roxicodone) 10 mg Q6H PRN PO SEVERE PAIN LEVEL 7-10 Last administered on 10/10/18 10:04; Admin Dose 10 MG; Start 10/08/18 at 11:00 PAVITHRA MELÉNDEZ October 10, 2018 13:16
[2018-10-10 14:00] VITALS: BP 118/59; PULSE 68; RESP 18
--- NOTE | 2018-10-10 15:31 | CONS ---
Assessment/Plan Assessment/Plan Hospital Course (Demo Recall) IMP: 1.H/O stent-per patient last placed 06/2016-took plavix x 6 months. self d/c'd asa due to easy brusing. Tolerating now. NL EF by echo this admit 2.s/p fall-? mechanical 3.HTN-somewhat labile but overall reasonable 4. Humeral fx 5.H/O [place] 2006? 6.tobacco dependence Recc: -Continue baby asa as tolerated -Continue norvasc/BB -Continue abx's and f/u cx data -Pain control -Ongoing ortho eval with some improvement in arm swelling but ongoing pain Consultation Date/Type/Reason Admit Date/Time Oct 05, 2018 at 21:11 Initial Consult Date 10/05/18 Type of Consult Cardiology Reason for Consultation HTN Requesting Provider: TONEY DEL CID MD Date/Time of Note DATE: 10/10/18 TIME: 15:29 Exam/Review of Systems Vital Signs Vitals Vital Signs Date Temp Pulse Resp B/P (MAP) Pulse Ox O2 O2 Flow FiO2 Time Delivery Rate 10/10/18 71 18 95 21 12:57 10/10/18 Nasal 09:25 Cannula 10/10/18 98.3 136/70 07:00 (92) Intake and Output 10/09/18 10/09/18 10/10/18 1515:00 23:00 07:00 IntakeIntake Total 50 ml OutputOutput Total 400 ml BalanceBalance 50 ml -400 ml Exam Exam Review of Systems: CONSTITUTIONAL: No fevers, chills. PULMONARY: No sob CARDIOVASCULAR: No chest pain/palpitations GASTROINTESTINAL: No nausea/vomiting. GENITOURINARY: No hematuria/dysuria. MUSCULOSKELETAL:pain in arm PSYCHIATRIC: The patient denies depression. NEUROLOGIC: No weakness Constitutional: alert Psych: no complaints Head: normocephalic ENMT: mucosa pink and moist Neck: supple, jvd (9 cm water) Respiratory: diminished breath sounds (at bases/B) Cardiovascular: regular rate and rhythm Gastrointestinal: soft, non-tender Musculoskeletal: muscle tone (normal), muscle weakness (mild generalized) Extremities: edema (none), other (arm in sling) Neurological: other (no focal defciits) Labs Result Diagram: 10/08/18 0702 10/08/18 0701 Medications Medications Current Medications Non-Formulary Medication 2 ea BID INH Last administered on 10/09/18 09:40; Admin Dose 2 EA; Start 10/05/18 at 22:11 Non-Formulary Medication 2 ea BID PRN INH WHEEZING AND SOB; Start 10/05/18 at 22:11 Nicotine (Nicoderm 14 Mg/ 24hr) 1 patch DAILY TRANSDERM Last administered on 10/10/18 10:07; Admin Dose 1 PATCH; Start 10/05/18 at 22:11 Pantoprazole (Protonix Tab) 40 mg BID@06,18 PO Last administered on 10/10/18 05:23; Admin Dose 40 MG; Start 10/05/18 at 22:11 Aspirin (Aspirin) 81 mg DAILY PO Last administered on 10/10/18 10:04; Admin Dose 81 MG; Start 10/05/18 at 22:11 Lactulose (Enulose) 20 gm DAILY PRN PO CONSTIPATION; Start 10/05/18 at 22:30 Acetaminophen (Tylenol Tab) 650 mg Q4H PRN PO MILD PAIN(1-3)OR ELEVATED TEMP; Start 10/05/18 at 23:00 Albuterol (Proventil 0.083% (Neb)) 2.5 mg TID RESP THERAPY HHN Last adminis tered on 10/10/18 12:47; Admin Dose 2.5 MG; Start 10/05/18 at 23:00 Amlodipine Besylate (Norvasc) 5 mg BID PO Last administered on 10/10/18 10:05; Admin Dose 5 MG; Start 10/05/18 at 23:00 Bisacodyl (Dulcolax) 10 mg DAILY PRN PO CONSTIPATION; Start 10/05/18 at 23:30 Calcium Carbonate (Tums) 500 mg Q4H PRN PO HEARTBURN; Start 10/05/18 at 23:30 Docusate Sodium (Colace) 100 mg BID PO Last administered on 10/10/18 10:03; Admin Dose 100 MG; Start 10/05/18 at 23:01 Guaifenesin (Mucinex) 600 mg BID PO Last administered on 10/08/18 09:13; Admin Dose 600 MG; Start 10/05/18 at 23:02 Magnesium Hydroxide (Milk Of Mag) 30 ml BID PRN PO CONSTIPATION; Start 10/05/18 at 23:30 Metoprolol Tartrate (Lopressor) 25 mg BID PO Last administered on 10/10/18 10:05; Admin Dose 25 MG; Start 10/05/18 at 23:02 Senna (Senokot) 1 tab HS PO Last administered on 10/07/18 20:29; Admin Dose 1 TAB; Start 10/05/18 at 23:04 Zolpidem Tartrate (Ambien) 5 mg HS MAY REPEAT X 1 PRN PO INSOMNIA Last administered on 10/09/18 23:02; Admin Dose 5 MG; Start 10/05/18 at 23:05 Hydrocortisone (Hydrocortisone 1% Cr) 1 applic TID TOP Last administered on 10/10/18 13:06; Admin Dose 1 APPLIC; Start 10/06/18 at 09:00 Diphenhydramine HCl (Benadryl) 25 mg Q6H PRN PO ITCHING Last administered on 10/08/18 21:07; Admin Dose 25 MG; Start 10/06/18 at 04:30 Tramadol HCl (Ultram) 50 mg Q4H PRN PO BREAKTHROUGH PAIN Last administered on 10/08/18 06:30; Admin Dose 50 MG; Start 10/07/18 at 10:10 Tramadol HCl (Ultram) 100 mg Q4H PRN PO MODERATE PAIN LEVEL 4-6 Last administered on 10/10/18 05:24; Admin Dose 100 MG; Start 10/07/18 at 10:30 Guaifenesin/ Dextromethorphan (Robitussin Dm Liquid Cup) 10 ml Q6H PRN PO COUGH; Start 10/08/18 at 04:00 Miscellaneous Information (Pending Santyl Order For Wound Care) This patient sheikh... PRN PRN XX WOUND CARE; Start 10/08/18 at 04:30 Oxycodone HCl (Roxicodone) 10 mg Q6H PRN PO SEVERE PAIN LEVEL 7-10 Last administered on 10/10/18 10:04; Admin Dose 10 MG; Start 10/08/18 at 11:00 SAMANTHA LEONARD October 10, 2018 15:31
[2018-10-10 20:00] VITALS: BP 117/57; PULSE 77; RESP 18
[2018-10-10] MEDS: CALCIUM CARBONATE 500 MG CHEW TAB PO PRN (20:45)
[2018-10-10] MEDS: SENNA TAB PO SCH (20:47)
[2018-10-10] MEDS: ZOLPIDEM 5 MG TAB PO PRN (22:19)
[2018-10-11] MEDS: oxyCODONE 5 MG TAB PO PRN (02:28)
[2018-10-11 02:30] VITALS: BP 118/57; PULSE 70; RESP 18
[2018-10-11] MEDS: PANTOPRAZOLE (EC) 40 MG TAB PO SCH ×2 (06:08→17:30)
[2018-10-11 07:00] VITALS: BP 122/58; PULSE 69; RESP 18
[2018-10-11] MEDS: ALBUTEROL 0.083% (NEB) 2.5 MG/3 ML AMP HHN SCH ×3 (07:45→17:10)
[2018-10-11] MEDS: CALCIUM CARBONATE 500 MG CHEW TAB PO PRN ×2 (08:11→22:03)
[2018-10-11] MEDS: traMADol 50 MG TAB PO PRN ×3 (08:11→22:03)
[2018-10-11] MEDS: ASPIRIN 81 MG TAB PO SCH (08:12)
[2018-10-11] MEDS: NICOTINE (14 MG/24 HR) PATCH TRANSDERM SCH (08:13)
[2018-10-11] MEDS: GUAIFENESIN LA 600 MG TABSR PO SCH ×2 (08:17→21:00)
[2018-10-11] MEDS: DOCUSATE SODIUM 100 MG CAP PO SCH ×2 (08:17→21:00)
[2018-10-11] MEDS: HYDROCORTISONE 1% 28 GM CR TOP SCH ×3 (08:47→20:30)
[2018-10-11] MEDS: AMLODIPINE 5 MG TAB PO SCH ×2 (08:47→20:32)
[2018-10-11] MEDS: METOPROLOL 25 MG TAB PO SCH ×2 (08:48→20:31)
[2018-10-11] MEDS: SPECIAL NON-STANDARD MEDICATION INH SCH ×2 (09:00→20:33)
--- NOTE | 2018-10-11 09:34 | PN ---
Date/Time of Note Date/Time of Note DATE: 10/11/18 TIME: 09:33 Objective Vital Signs Date Temp Pulse Resp B/P (MAP) Pulse Ox O2 O2 Flow FiO2 Time Delivery Rate 10/11/18 77 18 96 21 07:46 10/11/18 98.1 122/58 Room Air 07:00 (79) Intake and Output 10/10/18 10/10/18 10/11/18 1515:00 23:00 07:00 IntakeIntake Total 250 ml 1200 ml 100 ml OutputOutput Total 600 ml 300 ml BalanceBalance 250 ml 600 ml -200 ml Exam INTERDISCIPLINARY TEAM CONFERENCE Attended by PT, OT, ST, Shop Mechanic, Social Work, Rehabilitation Nursing, Orange Picking Supervisor and Auto Transport DriverParcel Contractor Exam: Pulm- cta Abd-soft BOWEL- Cont BLADDER-Cont SKIN- improving OT- DRESSING-mod/max BATHING-mod/max TOILETING-mod/max PT- BED MOBILITY-min TRANSFERS-min AMBULATION-min 75 feet A/P- Interdisciplinary team conference held today. Please see interdisciplinary sheet. Working toward d.c. on 10/19 with post discharge follow up of physical therapy, occupational therapy. Results/Medications Result Diagram: 10/08/18 0702 10/08/18 0701 Medications Current Medications Non-Formulary Medication 2 ea BID INH Last administered on 10/09/18 09:40; Admin Dose 2 EA; Start 10/05/18 at 22:11 Non-Formulary Medication 2 ea BID PRN INH WHEEZING AND SOB; Start 10/05/18 at 22:11 Nicotine (Nicoderm 14 Mg/ 24hr) 1 patch DAILY TRANSDERM Last administered on 10/11/18at 08:13; Admin Dose 1 PATCH; Start 10/05/18 at 22:11 Pantoprazole (Protonix Tab) 40 mg BID@06,18 PO Last administered on 10/11/18 06:08; Admin Dose 40 MG; Start 10/05/18 at 22:11 Aspirin (Aspirin) 81 mg DAILY PO Last administered on 10/11/18at 08:12; Admin Dose 81 MG; Start 10/05/18 at 22:11 Lactulose (Enulose) 20 gm DAILY PRN PO CONSTIPATION; Start 10/05/18 at 22:30 Acetaminophen (Tylenol Tab) 650 mg Q4H PRN PO MILD PAIN(1-3)OR ELEVATED TEMP; Start 10/05/18 at 23:00 Albuterol (Proventil 0.083% (Neb)) 2.5 mg TID RESP THERAPY HHN Last administered on 10/11/18 07:45; Admin Dose 2.5 MG; Start 10/05/18 at 23:00 Amlodipine Besylate (Norvasc) 5 mg BID PO Last administered on 10/11/18 08:47; Admin Dose 5 MG; Start 10/05/18 at 23:00 Bisacodyl (Dulcolax) 10 mg DAILY PRN PO CONSTIPATION; Start 10/05/18 at 23:30 Calcium Carbonate (Tums) 500 mg Q4H PRN PO HEARTBURN Last administered on 10/11/18 08:11; Admin Dose 500 MG; Start 10/05/18 at 23:30 Docusate Sodium (Colace) 100 mg BID PO Last administered on 10/10/18 10:03; Admin Dose 100 MG; Start 10/05/18 at 23:01 Guaifenesin (Mucinex) 600 mg BID PO Last administered on 10/08/18 09:13; Admin Dose 600 MG; Start 10/05/18 at 23:02 Magnesium Hydroxide (Milk Of Mag) 30 ml BID PRN PO CONSTIPATION; Start 10/05/18 at 23:30 Metoprolol Tartrate (Lopressor) 25 mg BID PO Last administered on 10/11/18 08:48; Admin Dose 25 MG; Start 10/05/18 at 23:02 Senna (Senokot) 1 tab HS PO Last administered on 10/07/18 20:29; Admin Dose 1 TAB; Start 10/05/18 at 23:04 Zolpidem Tartrate (Ambien) 5 mg HS MAY REPEAT X 1 PRN PO INSOMNIA Last administered on 10/10/18 22:19; Admin Dose 5 MG; Start 10/05/18 at 23:05 Hydrocortisone (Hydrocortisone 1% Cr) 1 applic TID TOP Last administered on 10/11/18 08:47; Admin Dose 1 APPLIC; Start 10/06/18 at 09:00 Diphenhydramine HCl (Benadryl) 25 mg Q6H PRN PO ITCHING Last administered on 21:07; Admin Dose 25 MG; Start 10/06/18 at 04:30 Tramadol HCl (Ultram) 50 mg Q4H PRN PO BREAKTHROUGH PAIN Last administered on 10/08/18at 06:30; Admin Dose 50 MG; Start 10/07/18 at 10:10 Tramadol HCl (Ultram) 100 mg Q4H PRN PO MODERATE PAIN LEVEL 4-6 Last administered on 10/11/18at 08:11; Admin Dose 100 MG; Start 10/07/18 at 10:30 Guaifenesin/ Dextromethorphan (Robitussin Dm Liquid Cup) 10 ml Q6H PRN PO COUGH; Start 10/08/18 at 04:00 Miscellaneous Information (Pending Santyl Order For Wound Care) This patient sheikh... PRN PRN XX WOUND CARE; Start 10/08/18 at 04:30 Oxycodone HCl (Roxicodone) 10 mg Q6H PRN PO SEVERE PAIN LEVEL 7-10 Last administered on 10/11/18at 02:28; Admin Dose 10 MG; Start 10/08/18 at 11:00 NUHA HUI MD October 11, 2018 09:34
[2018-10-11] MEDS ORDERED: oxyCODONE 5 MG TAB PO PRN (10:30)
[2018-10-11 14:00] VITALS: BP 121/64; PULSE 70; RESP 18
--- NOTE | 2018-10-11 14:07 | CONS ---
Assessment/Plan Assessment/Plan Hospital Course (Demo Recall) IMP: 1.H/O stent-per patient last placed 06/2016-took plavix x 6 months. self d/c'd asa due to easy bruising. Tolerating now. NL EF by echo this admit 2.s/p fall-? mechanical 3.HTN-somewhat labile but overall reasonable 4. Humeral fx-decresaed swelling/some pain 5.H/O [place] 2006? 6.tobacco dependence 7. N/V today Recc: -Continue baby asa as tolerated -Continue norvasc/BB -Continue abx's and f/u cx data -Pain control -Rc nausea as necessary Consultation Date/Type/Reason Admit Date/Time Oct 05, 2018 at 21:11 Initial Consult Date 10/05/18 Type of Consult Cardiology Reason for Consultation HTN Requesting Provider: TONEY DEL CID MD Date/Time of Note DATE: 10/11/18 TIME: 14:06 Exam/Review of Systems Vital Signs Vitals Vital Signs Date Temp Pulse Resp B/P (MAP) Pulse Ox O2 O2 Flow FiO2 Time Delivery Rate 10/11/18 77 18 96 21 07:46 10/11/18 98.1 122/58 Room Air 07:00 (79) Intake and Output 10/10/18 10/10/18 10/11/18 1515:00 23:00 07:00 IntakeIntake Total 250 ml 1200 ml 100 ml OutputOutput Total 600 ml 300 ml BalanceBalance 250 ml 600 ml -200 ml Exam Exam Review of Systems: CONSTITUTIONAL: No fevers, chills. PULMONARY: No sob CARDIOVASCULAR: No chest pain/palpitations GASTROINTESTINAL: No nausea/vomiting. GENITOURINARY: No hematuria/dysuria. MUSCULOSKELETAL: No myagias/arthalgias. PSYCHIATRIC: The patient denies depression. NEUROLOGIC: No weakness Constitutional: alert Psych: no complaints Head: normocephalic ENMT: mucosa pink and moist Neck: supple, jvd (9 cm water) Respiratory: diminished breath sounds (at bases/B) Cardiovascular: regular rate and rhythm Gastrointestinal: soft, non-tender Musculoskeletal: muscle tone (normal) Extremities: edema (none) Neurological: other (No focal deficits) Labs Result Diagram: 10/08/18 0702 10/08/18 0701 Medications Medications Current Medications Non-Formulary Medication 2 ea BID INH Last administered on 10/09/18 09:40; Admin Dose 2 EA; Start 10/05/18 at 22:11 Non-Formulary Medication 2 ea BID PRN INH WHEEZING AND SOB; Start 10/05/18 at 22:11 Nicotine (Nicoderm 14 Mg/ 24hr) 1 patch DAILY TRANSDERM Last administered on 10/11/18 08:13; Admin Dose 1 PATCH; Start 10/05/18 at 22:11 Pantoprazole (Protonix Tab) 40 mg BID@,18 PO Last administered on 10/11/18 06:08; Admin Dose 40 MG; Start 10/05/18 at 22:11 Aspirin (Aspirin) 81 mg DAILY PO Last administered on 10/11/18 08:12; Admin Dose 81 MG; Start 10/05/18 at 22:11 Lactulose (Enulose) 20 gm DAILY PRN PO CONSTIPATION; Start 10/05/18 at 22:30 Acetaminophen (Tylenol Tab) 650 mg Q4H PRN PO MILD PAIN(1-3)OR ELEVATED TEMP; Start 10/05/18 at 23:00 Albuterol (Proventil 0.083% (Neb)) 2.5 mg TID RESP THERAPY HHN Last administered on 10/11/18 07:45; Admin Dose 2.5 MG; Start 10/05/18 at 23:00 Amlodipine Besylate (Norvasc) 5 mg BID PO Last administered on 10/11/18 08:47; Admin Dose 5 MG; Start 10/05/18 at 23:00 Bisacodyl (Dulcolax) 10 mg DAILY PRN PO CONSTIPATION; Start 10/05/18 at 23:30 Calcium Carbonate (Tums) 500 mg Q4H PRN PO HEARTBURN Last administered on 10/11/18 08:11; Admin Dose 500 MG; Start 10/05/18 at 23:30 Docusate Sodium (Colace) 100 mg BID PO Last administered on 10/10/18 10:03; Admin Dose 100 MG; Start 10/05/18 at 23:01 Guaifenesin (Mucinex) 600 mg BID PO Last administered on 10/08/18 09:13; Admin Dose 600 MG; Start 10/05/18 at 23:02 Magnesium Hydroxide (Milk Of Mag) 30 ml BID PRN PO CONSTIPATION; Start 10/05/18 at 23:30 Metoprolol Tartrate (Lopressor) 25 mg BID PO Last administered on 10/11/18 08:48; Admin Dose 25 MG; Start 10/05/18 at 23:02 Senna (Senokot) 1 tab HS PO Last administered on 10/07/18 20:29; Admin Dose 1 TAB; Start 10/05/18 at 23:04 Zolpidem Tartrate (Ambien) 5 mg HS MAY REPEAT X 1 PRN PO INSOMNIA Last administered on 10/10/18 22:19; Admin Dose 5 MG; Start 10/05/18 at 23:05 Hydrocortisone (Hydrocortisone 1% Cr) 1 applic TID TOP Last administered on 10/11/18 13:51; Admin Dose 1 APPLIC; Start 10/06/18 at 09:00 Diphenhydramine HCl (Benadryl) 25 mg Q6H PRN PO ITCHING Last administered on 10/08/18 21:07; Admin Dose 25 MG; Start 10/06/18 at 04:30 Tramadol HCl (Ultram) 50 mg Q4H PRN PO BREAKTHROUGH PAIN Last administered on 10/08/18 06:30; Admin Dose 50 MG; Start 10/07/18 at 10:10 Tramadol HCl (Ultram) 100 mg Q4H PRN PO MODERATE PAIN LEVEL 4-6 Last administered on 10/11/18 08:11; Admin Dose 100 MG; Start 10/07/18 at 10:30 Guaifenesin/ Dextromethorphan (Robitussin Dm Liquid Cup) 10 ml Q6H PRN PO COUGH; Start 10/08/18 at 04:00 Miscellaneous Information (Pending Santyl Order For Wound Care) This patient sheikh... PRN PRN XX WOUND CARE; Start 10/08/18 at 04:30 Oxycodone HCl (Roxicodone) 10 mg Q4 PRN PO SEVERE PAIN LEVEL 7-10 Last administered on 10/11/18 11:28; Admin Dose 10 MG; Start 10/11/18 at 10:30 SAMANTHA LEONARD October 11, 2018 14:07
[2018-10-11] MEDS ORDERED: ONDANSETRON 4 MG INJ IV PRN (14:30)
[2018-10-11] MEDS: ONDANSETRON (ODT) 4 MG TAB ODT PRN ×2 (14:45→22:02)
--- NOTE | 2018-10-11 17:46 | PN ---
Date/Time of Note Date/Time of Note DATE: 10/11/18 TIME: 17:46 Assessment/Plan VTE Prophylaxis Risk score (from Nsg)>0 risk: 3 SCD applied (from Nsg): Yes Pharmacological prophylaxis: other Lines/Catheters IV Catheter Type (from Nrsg): Saline Lock Assessment/Plan Hospital Course Patient is comfortable on room air, pain is adequately controlled, patient participates in PT. Assessment/Plan -Pulmonary Debility secondary to broncho-pneumonia, and COPD exacerbation. -Left proximal humeral fracture, status post evaluation by Dr. Burleson and orthopedic surgery consultation with recommendation to continue immobilization with sling and no weight bearing. -Coronary artery disease, history of stent placement in 2017. Continue aspirin. Dr. Strickland is following in cardiology consultation. 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 Butts in oncology consultation with recommendation to follow-up with CT scan of the chest in 3 months. Patient follows with Dr. Mackey, oncologist as an outpatient. Patient had a history of pneumonia requiring chest tube in March 2018. -GERD -Former smoker Further recommendations based on clinical course. Plan of care discussed with Dr. Awan. Result Diagram: 10/08/18 0702 10/08/18 0701 Exam/Review of Systems Exam Vitals Vital Signs Date Temp Pulse Resp B/P (MAP) Pulse Ox O2 O2 Flow FiO2 Time Delivery Rate 10/11/18 83 20 95 21 17:10 10/11/18 97.8 121/64 Room Air 14:00 (83) Intake and Output 10/10/18 10/10/18 10/11/18 1515:00 23:00 07:00 IntakeIntake Total 250 ml 1200 ml 100 ml OutputOutput Total 600 ml 300 ml BalanceBalance 250 ml 600 ml -200 ml Constitutional: alert, oriented Respiratory: clear to auscultation Cardiovascular: nl pulses Gastrointestinal: soft, non-tender Extremities: normal pulses, other (Left upper extremity immobilized with sling) Neurological: nl mental status Medications Medication Current Medications Non-Formulary Medication 2 ea BID INH Last administered on 10/09/18at 09:40; Admin Dose 2 EA; Start 10/05/18 at 22:11 Non-Formulary Medication 2 ea BID PRN INH WHEEZING AND SOB; Start 10/05/18 at 22:11 Nicotine (Nicoderm 14 Mg/ 24hr) 1 patch DAILY TRANSDERM Last administered on 10/11/18 08:13; Admin Dose 1 PATCH; Start 10/05/18 at 22:11 Pantoprazole (Protonix Tab) 40 mg BID@06,18 PO Last administered on 10/11/18 17:30; Admin Dose 40 MG; Start 10/05/18 at 22:11 Aspirin (Aspirin) 81 mg DAILY PO Last administered on 10/11/18 08:12; Admin Dose 81 MG; Start 10/05/18 at 22:11 Lactulose (Enulose) 20 gm DAILY PRN PO CONSTIPATION; Start 10/05/18 at 22:30 Acetaminophen (Tylenol Tab) 650 mg Q4H PRN PO MILD PAIN(1-3)OR ELEVATED TEMP; Start 10/05/18 at 23:00 Albuterol (Proventil 0.083% (Neb)) 2.5 mg TID RESP THERAPY HHN Last administered on 10/11/18 17:10; Admin Dose 2.5 MG; Start 10/05/18 at 23:00 Amlodipine Besylate (Norvasc) 5 mg BID PO Last administered on 10/11/18 08:47; Admin Dose 5 MG; Start 10/05/18 at 23:00 Bisacodyl (Dulcolax) 10 mg DAILY PRN PO CONSTIPATION; Start 10/05/18 at 23:30 Calcium Carbonate (Tums) 500 mg Q4H PRN PO HEARTBURN Last administered on 10/11/18 08:11; Admin Dose 500 MG; Start 10/05/18 at 23:30 Docusate Sodium (Colace) 100 mg BID PO Last administered on 10/10/18 10:03; Admin Dose 100 MG; Start 10/05/18 at 23:01 Guaifenesin (Mucinex) 600 mg BID PO Last administered on 10/08/18 09:13; Admin Dose 600 MG; Start 10/05/18 at 23:02 Magnesium Hydroxide (Milk Of Mag) 30 ml BID PRN PO CONSTIPATION; Start 10/05/18 at 23:30 Metoprolol Tartrate (Lopressor) 25 mg BID PO Last administered on 10/11/18 08:48; Admin Dose 25 MG; Start 10/05/18 at 23:02 Senna (Senokot) 1 tab HS PO Last administered on 10/07/18 20:29; Admin Dose 1 TAB; Start 10/05/18 at 23:04 Zolpidem Tartrate (Ambien) 5 mg HS MAY REPEAT X 1 PRN PO INSOMNIA Last administered on 10/10/18 22:19; Admin Dose 5 MG; Start 10/05/18 at 23:05 Hydrocortisone (Hydrocortisone 1% Cr) 1 applic TID TOP Last administered on 10/11/18 13:51; Admin Dose 1 APPLIC; Start 10/06/18 at 09:00 Diphenhydramine HCl (Benadryl) 25 mg Q6H PRN PO ITCHING Last administered on 10/08/18 21:07; Admin Dose 25 MG; Start 10/06/18 at 04:30 Tramadol HCl (Ultram) 50 mg Q4H PRN PO BREAKTHROUGH PAIN Last administered on 10/08/18 06:30; Admin Dose 50 MG; Start 10/07/18 at 10:10 Tramadol HCl (Ultram) 100 mg Q4H PRN PO MODERATE PAIN LEVEL 4-6 Last administered on 10/11/18 17:41; Admin Dose 100 MG; Start 10/07/18 at 10:30 Guaifenesin/ Dextromethorphan (Robitussin Dm Liquid Cup) 10 ml Q6H PRN PO COUGH; Start 10/08/18 at 04:00 Miscellaneous Information (Pending [facility] Order For Wound Care) This patient sheikh... PRN PRN XX WOUND CARE; Start 10/08/18 at 04:30 Oxycodone HCl (Roxicodone) 10 mg Q4 PRN PO SEVERE PAIN LEVEL 7-10 Last administered on 10/11/18 11:28; Admin Dose 10 MG; Start 10/11/18 at 10:30 Ondansetron HCl (Zofran Inj) 4 mg Q6H PRN IV NAUSEA AND/OR VOMITING; Start 10/11/18 at 14:30 Ondansetron HCl (Zofran Odt) 4 mg Q6H PRN ODT NAUSEA AND/OR VOMITING Last administered on 10/11/18 14:45; Admin Dose 4 MG; Start 10/11/18 at 14:30 ANGELA MARLOW October 11, 2018 17:46
[2018-10-11 20:28] VITALS: BP 109/58; PULSE 75; RESP 18
[2018-10-11] MEDS: SENNA TAB PO SCH (21:00)
[2018-10-11] MEDS: DIPHENHYDRAMINE 25 MG CAP PO PRN (22:04)
[2018-10-11] MEDS: ZOLPIDEM 5 MG TAB PO PRN (23:06)
[2018-10-12] MEDS: traMADol 50 MG TAB PO PRN ×5 (02:28→23:57)
[2018-10-12 02:29] VITALS: BP 122/58; PULSE 67; RESP 18
[2018-10-12] MEDS: PANTOPRAZOLE (EC) 40 MG TAB PO SCH ×2 (06:26→17:59)
[2018-10-12 07:30] VITALS: BP 122/57; PULSE 78; RESP 20
[2018-10-12] MEDS: ONDANSETRON (ODT) 4 MG TAB ODT PRN (08:35)
[2018-10-12] MEDS: ASPIRIN 81 MG TAB PO SCH (08:37)
[2018-10-12] MEDS: DOCUSATE SODIUM 100 MG CAP PO SCH ×2 (08:37→19:51)
[2018-10-12] MEDS: NICOTINE (14 MG/24 HR) PATCH TRANSDERM SCH (08:37)
[2018-10-12] MEDS: AMLODIPINE 5 MG TAB PO SCH ×2 (08:38→22:40)
[2018-10-12] MEDS: HYDROCORTISONE 1% 28 GM CR TOP SCH ×3 (08:45→19:53)
[2018-10-12] MEDS: ALBUTEROL 0.083% (NEB) 2.5 MG/3 ML AMP HHN SCH ×3 (08:57→17:46)
[2018-10-12] MEDS: GUAIFENESIN LA 600 MG TABSR PO SCH ×2 (09:00→19:59)
[2018-10-12] MEDS: METOPROLOL 25 MG TAB PO SCH ×2 (09:00→19:52)
[2018-10-12] MEDS: SPECIAL NON-STANDARD MEDICATION INH SCH ×2 (09:00→19:52)
--- NOTE | 2018-10-12 10:46 | CONS ---
Consult Date/Type/Reason Admit Date/Time Oct 05, 2018 at 21:11 Initial Consult Date Requesting Provider: TONEY DEL CID MD Date/Time of Note DATE: 10/12/18 TIME: 10:45 Subjective NO acute events - pt comfortable - no CP now - more active with rehab doing well overall. ROS: No fever, no chills, no nausea, no vomiting, no diarrhea/constipation No recent weight changes No chest pain, no PND, no orthopnea No dizziness, blurred vision No thirst, no heat or cold intolerance Objective Vitals Vital Signs Date Temp Pulse Resp B/P (MAP) Pulse Ox O2 O2 Flow FiO2 Time Delivery Rate 10/12/18 76 17 93 21 08:58 10/12/18 97.4 122/57 Room Air 07:30 (78) Intake and Output 10/11/18 10/11/18 10/12/18 1515:00 23:00 07:00 IntakeIntake Total 1200 ml OutputOutput Total 600 ml 200 ml BalanceBalance 600 ml -200 ml Exam General: WN/WD/NAD, AOx 3 HEENT: Unicetric/atraumatic/EOMI (follow commands) NECK: JVD elevated, no thyromegaly Lymph: no lymphadenopathy HEART: regular with no S3, II/ systolic murmur at apex LUNGS: Coarse sounds ABD: soft, NT, ND, +BS : Intact Neuro: non focal SKIN: chronic changes EXT: trace edema, arm in sling L Results/Medications Result Diagram: 10/08/18 0702 10/08/18 0701 Home Meds Reported Medications Metoprolol Tartrate* (Lopressor*) 25 Mg Tab, 25 MG PO DAILY, #60 TAB 09/30/18 Omeprazole* (Omeprazole*) 10 Mg Capsule.dr, 10 MG PO DAILY, #30 CAP 09/30/18 Medications Current Medications Non-Formulary Medication 2 ea BID INH Last administered on 10/09/18at 09:40; Admin Dose 2 EA; Start 10/05/18 at 22:11 Non-Formulary Medication 2 ea BID PRN INH WHEEZING AND SOB; Start 10/05/18 at 22:11 Nicotine (Nicoderm 14 Mg/ 24hr) 1 patch DAILY TRANSDERM Last administered on 10/12/18at 08:37; Admin Dose 1 PATCH; Start 10/05/18 at 22:11 Pantoprazole (Protonix Tab) 40 mg BID@06,18 PO Last administered on 10/12/18 06:26; Admin Dose 40 MG; Start 10/05/18 at 22:11 Aspirin (Aspirin) 81 mg DAILY PO Last administered on 10/12/18 08:37; Admin Dose 81 MG; Start 10/05/18 at 22:11 Lactulose (Enulose) 20 gm DAILY PRN PO CONSTIPATION; Start 10/05/18 at 22:30 Acetaminophen (Tylenol Tab) 650 mg Q4H PRN PO MILD PAIN(1-3)OR ELEVATED TEMP; Start 10/05/18 at 23:00 Albuterol (Proventil 0.083% (Neb)) 2.5 mg TID RESP THERAPY HHN Last administered on 10/12/18 08:57; Admin Dose 2.5 MG; Start 10/05/18 at 23:00 Amlodipine Besylate (Norvasc) 5 mg BID PO Last administered on 10/12/18 08:38; Admin Dose 5 MG; Start 10/05/18 at 23:00 Bisacodyl (Dulcolax) 10 mg DAILY PRN PO CONSTIPATION; Start 10/05/18 at 23:30 Calcium Carbonate (Tums) 500 mg Q4H PRN PO HEARTBURN Last administered on 10/11/18 22:03; Admin Dose 500 MG; Start 10/05/18 at 23:30 Docusate Sodium (Colace) 100 mg BID PO Last administered on 10/12/18 08:37; Admin Dose 100 MG; Start 10/05/18 at 23:01 Guaifenesin (Mucinex) 600 mg BID PO Last administered on 10/08/18 09:13; Admin Dose 600 MG; Start 10/05/18 at 23:02 Magnesium Hydroxide (Milk Of Mag) 30 ml BID PRN PO CONSTIPATION; Start 10/05/18 at 23:30 Metoprolol Tartrate (Lopressor) 25 mg BID PO Last administered on 10/11/18 20:31; Admin Dose 25 MG; Start 10/05/18 at 23:02 Senna (Senokot) 1 tab HS PO Last administered on 10/07/18 20:29; Admin Dose 1 TAB; Start 10/05/18 at 23:04 Zolpidem Tartrate (Ambien) 5 mg HS MAY REPEAT X 1 PRN PO INSOMNIA Last administered on 10/11/18 23:06; Admin Dose 5 MG; Start 10/05/18 at 23:05 Hydrocortisone (Hydrocortisone 1% Cr) 1 applic TID TOP Last administered on 10/12/18 08:45; Admin Dose 1 APPLIC; Start 10/06/18 at 09:00 Diphenhydramine HCl (Benadryl) 25 mg Q6H PRN PO ITCHING Last administered on 10/11/18 22:04; Admin Dose 25 MG; Start 10/06/18 at 04:30 Tramadol HCl (Ultram) 50 mg Q4H PRN PO BREAKTHROUGH PAIN Last administered on 10/08/18 06:30; Admin Dose 50 MG; Start 10/07/18 at 10:10 Tramadol HCl (Ultram) 100 mg Q4H PRN PO MODERATE PAIN LEVEL 4-6 Last administered on 10/12/18 06:26; Admin Dose 100 MG; Start 10/07/18 at 10:30 Guaifenesin/ Dextromethorphan (Robitussin Dm Liquid Cup) 10 ml Q6H PRN PO COUGH; Start 10/08/18 at 04:00 Miscellaneous Information (Pending [facility] Order For Wound Care) This patient sheikh... PRN PRN XX WOUND CARE; Start 10/08/18 at 04:30 Oxycodone HCl (Roxicodone) 10 mg Q4 PRN PO SEVERE PAIN LEVEL 7-10 Last administered on 10/11/18 11:28; Admin Dose 10 MG; Start 10/11/18 at 10:30 Ondansetron HCl (Zofran Inj) 4 mg Q6H PRN IV NAUSEA AND/OR VOMITING; Start 10/11/18 at 14:30 Ondansetron HCl (Zofran Odt) 4 mg Q6H PRN ODT NAUSEA AND/OR VOMITING Last administered on 10/12/18 08:35; Admin Dose 4 MG; Start 10/11/18 at 14:30 Assessment/Plan Hospital Course (Demo Recall) 1.H/O stent-per patient last placed 06/2016-took plavix x 6 months. self d/c'd asa due to easy bruising. Tolerating now. NL EF by echo this admit - doing well, compliant with rehab 2.s/p fall-? mechanical - no arrhthmia noted 3.HTN-somewhat labile but overall reasonable - stable overall. 4. Humeral fx-decresaed swelling/some pain - better now 5.H/O IN 2006? - no CP - med rX advised 6.tobacco dependence 7. N/V day prior,m now resolved. ABI MASON MD October 12, 2018 10:46
--- NOTE | 2018-10-12 12:47 | PN ---
Date/Time of Note Date/Time of Note DATE: 10/12/18 TIME: 12:46 Subjective Working with therapies Objective Vital Signs Date Temp Pulse Resp B/P (MAP) Pulse Ox O2 O2 Flow FiO2 Time Delivery Rate 10/12/18 76 17 93 21 08:58 10/12/18 97.4 122/57 Room Air 07:30 (78) Intake and Output 10/11/18 10/11/18 10/12/18 1515:00 23:00 07:00 IntakeIntake Total 1200 ml OutputOutput Total 600 ml 200 ml BalanceBalance 600 ml -200 ml Exam sba transfer sba ambulation 50 feet Results/Medications Result Diagram: 10/08/1870110/08/18700 Medications Current Medications Non-Formulary Medication 2 ea BID INH Last administered on 10/09/18 09:40; Admin Dose 2 EA; Start 10/05/18 at 22:11 Non-Formulary Medication 2 ea BID PRN INH WHEEZING AND SOB; Start 10/05/18 at 22:11 Nicotine (Nicoderm 14 Mg/ 24hr) 1 patch DAILY TRANSDERM Last administered on 10/12/18 08:37; Admin Dose 1 PATCH; Start 10/05/18 at 22:11 Pantoprazole (Protonix Tab) 40 mg BID@06,18 PO Last administered on 10/12/18 06:26; Admin Dose 40 MG; Start 10/05/18 at 22:11 Aspirin (Aspirin) 81 mg DAILY PO Last administered on 10/12/18 08:37; Admin Dose 81 MG; Start 10/05/18 at 22:11 Lactulose (Enulose) 20 gm DAILY PRN PO CONSTIPATION; Start 10/05/18 at 22:30 Acetaminophen (Tylenol Tab) 650 mg Q4H PRN PO MILD PAIN(1-3)OR ELEVATED TEMP; Start 10/05/18 at 23:00 Albuterol (Proventil 0.083% (Neb)) 2.5 mg TID RESP THERAPY HHN Last administered on 10/12/18 08:57; Admin Dose 2.5 MG; Start 10/05/18 at 23:00 Amlodipine Besylate (Norvasc) 5 mg BID PO Last administered on 10/12/18 08:38; Admin Dose 5 MG; Start 10/05/18 at 23:00 Bisacodyl (Dulcolax) 10 mg DAILY PRN PO CONSTIPATION; Start 10/05/18 at 23:30 Calcium Carbonate (Tums) 500 mg Q4H PRN PO HEARTBURN Last administered on 10/11/18 22:03; Admin Dose 500 MG; Start 10/05/18 at 23:30 Docusate Sodium (Colace) 100 mg BID PO Last administered on 10/12/18 08:37; Admin Dose 100 MG; Start 10/05/18 at 23:01 Guaifenesin (Mucinex) 600 mg BID PO Last administered on 10/08/18 09:13; Admin Dose 600 MG; Start 10/05/18 at 23:02 Magnesium Hydroxide (Milk Of Mag) 30 ml BID PRN PO CONSTIPATION; Start 10/05/18 at 23:30 Metoprolol Tartrate (Lopressor) 25 mg BID PO Last administered on 10/11/18 20:31; Admin Dose 25 MG; Start 10/05/18 at 23:02 Senna (Senokot) 1 tab HS PO Last administered on 10/07/18 20:29; Admin Dose 1 TAB; Start 10/05/18 at 23:04 Zolpidem Tartrate (Ambien) 5 mg HS MAY REPEAT X 1 PRN PO INSOMNIA Last administered on 10/11/18 23:06; Admin Dose 5 MG; Start 10/05/18 at 23:05 Hydrocortisone (Hydrocortisone 1% Cr) 1 applic TID TOP Last administered on 10/12/18 08:45; Admin Dose 1 APPLIC; Start 10/06/18 at 09:00 Diphenhydramine HCl (Benadryl) 25 mg Q6H PRN PO ITCHING Last administered on 10/11/18 22:04; Admin Dose 25 MG; Start 10/06/18 at 04:30 Tramadol HCl (Ultram) 50 mg Q4H PRN PO BREAKTHROUGH PAIN Last administered on 10/08/18 06:30; Admin Dose 50 MG; Start 10/07/18 at 10:10 Tramadol HCl (Ultram) 100 mg Q4H PRN PO MODERATE PAIN LEVEL 4-6 Last administ ered on 10/12/18 06:26; Admin Dose 100 MG; Start 10/07/18 at 10:30 Guaifenesin/ Dextromethorphan (Robitussin Dm Liquid Cup) 10 ml Q6H PRN PO COUGH; Start 10/08/18 at 04:00 [facility]ellaneous [facility] This patient sheikh... PRN PRN XX WOUND CARE; Start 10/08/18 at 04:30 Oxycodone HCl (Roxicodone) 10 mg Q4 PRN PO SEVERE PAIN LEVEL 7-10 Last administered on 10/11/18at 11:28; Admin Dose 10 MG; Start 10/11/18 at 10:30 Ondansetron HCl (Zofran Inj) 4 mg Q6H PRN IV NAUSEA AND/OR VOMITING; Start 10/11/18 at 14:30 Ondansetron HCl (Zofran Odt) 4 mg Q6H PRN ODT NAUSEA AND/OR VOMITING Last administered on 10/12/18at 08:35; Admin Dose 4 MG; Start 10/11/18 at 14:30 Assessment/Plan Additional Assessment/Plan Rehab- Pulmonary debility secondary to bronchopneumonia and COPD exacerbation; Left proximal humeral fracture, being treated conservatively Continue rehab interdisciplinary rehab Acute pain syndrome-continue current minnie History of adenocarcinoma. Hypertension. Hyperlipidemia. Gastroesophageal reflux disease. Left foot drop- AFO Coronary artery disease with history of stent. NUHA HUI MD October 12, 2018 12:47
[2018-10-12] MEDS: MAGNESIUM HYDROXIDE 30ML CUP PO PRN (13:01)
[2018-10-12 14:00] VITALS: BP 139/65; PULSE 77; RESP 18
[2018-10-12] MEDS: SENNA TAB PO SCH (19:51)
[2018-10-12] MEDS: ZOLPIDEM 5 MG TAB PO PRN ×2 (19:53→22:28)
[2018-10-12 20:10] VITALS: BP 121/58; PULSE 96; RESP 18
--- NOTE | 2018-10-12 20:45 | PN ---
Date/Time of Note Date/Time of Note DATE: 10/12/18 TIME: 20:43 Assessment/Plan VTE Prophylaxis Risk score (from Ns)>0 risk: 3 SCD applied (from Ns): Yes Pharmacological prophylaxis: other Lines/Catheters IV Catheter Type (from [facility]): Saline Lock Assessment/Plan Hospital Course No acute events overnight, patient remains hemodynamically stable, comfortable on room air. Assessment/Plan -Pulmonary Debility secondary to broncho-pneumonia, and COPD exacerbation. -Left proximal humeral fracture, status post evaluation by Dr. Burleson and orthopedic surgery consultation with recommendation to continue immobilization with sling and no weight bearing. -Coronary artery disease, history of stent placement in 2017. Continue aspirin. Dr. Strickland is following in cardiology consultation. 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 Butts in oncology consultation with recommendation to follow-up with CT scan of the chest in 3 months. Patient follows with Dr. Mackey, oncologist as an outpatient. Patient had a history of pneumonia requiring chest tube in March 2018. -GERD -Former smoker Further recommendations based on clinical course. Plan of care discussed with Dr. Awan. Result Diagram: 10/08/18 0702 10/08/18 0701 Exam/Review of Systems Exam Vitals Vital Signs Date Temp Pulse Resp B/P (MAP) Pulse Ox O2 O2 Flow FiO2 Time Delivery Rate 10/12/18 98.0 96 18 121/58 92 Room Air 20:10 (79) 10/12/18 21 17:47 Intake and Output 10/11/18 10/11/18 10/12/18 1515:00 23:00 07:00 IntakeIntake Total 1200 ml OutputOutput Total 600 ml 200 ml BalanceBalance 600 ml -200 ml Exam Constitutional: alert, oriented Respiratory: clear to auscultation Cardiovascular: nl pulses Gastrointestinal: soft, non-tender Extremities: normal pulses, other (Left upper extremity immobilized with sling) Neurological: nl mental status Medications Medication Current Medications Non-Formulary Medication 2 ea BID INH Last administered on 10/12/18at 19:52; Admin Dose 2 EA; Start 10/05/18 at 22:11 Non-Formulary Medication 2 ea BID PRN INH WHEEZING AND SOB; Start 10/05/18 at 22:11 Nicotine (Nicoderm 14 Mg/ 24hr) 1 patch DAILY TRANSDERM Last administered on 10/12/18 08:37; Admin Dose 1 PATCH; Start 10/05/18 at 22:11 Pantoprazole (Protonix Tab) 40 mg BID@06,18 PO Last administered on 10/12/18 17:59; Admin Dose 40 MG; Start 10/05/18 at 22:11 Aspirin (Aspirin) 81 mg DAILY PO Last administered on 10/12/18 08:37; Admin Dose 81 MG; Start 10/05/18 at 22:11 Lactulose (Enulose) 20 gm DAILY PRN PO CONSTIPATION; Start 10/05/18 at 22:30 Acetaminophen (Tylenol Tab) 650 mg Q4H PRN PO MILD PAIN(1-3)OR ELEVATED TEMP; Start 10/05/18 at 23:00 Albuterol (Proventil 0.083% (Neb)) 2.5 mg TID RESP THERAPY HHN Last administered on 10/12/18 17:46; Admin Dose 2.5 MG; Start 10/05/18 at 23:00 Amlodipine Besylate (Norvasc) 5 mg BID PO Last administered on 10/12/18 08:38; Admin Dose 5 MG; Start 10/05/18 at 23:00 Bisacodyl (Dulcolax) 10 mg DAILY PRN PO CONSTIPATION; Start 10/05/18 at 23:30 Calcium Carbonate (Tums) 500 mg Q4H PRN PO HEARTBURN Last administered on 10/11/18 22:03; Admin Dose 500 MG; Start 10/05/18 at 23:30 Docusate Sodium (Colace) 100 mg BID PO Last administered on 10/12/18 19:51; Admin Dose 100 MG; Start 10/05/18 at 23:01 Guaifenesin (Mucinex) 600 mg BID PO Last administered on 10/08/18 09:13; Admin Dose 600 MG; Start 10/05/18 at 23:02 Magnesium Hydroxide (Milk Of Mag) 30 ml BID PRN PO CONSTIPATION Last administered on 10/12/18 13:01; Admin Dose 30 ML; Start 10/05/18 at 23:30 Metoprolol Tartrate (Lopressor) 25 mg BID PO Last administered on 10/12/18 19:52; Admin Dose 25 MG; Start 10/05/18 at 23:02 Senna (Senokot) 1 tab HS PO Last administered on 10/12/18 19:51; Admin Dose 1 TAB; Start 10/05/18 at 23:04 Zolpidem Tartrate (Ambien) 5 mg HS MAY REPEAT X 1 PRN PO INSOMNIA Last administered on 10/12/18 19:53; Admin Dose 5 MG; Start 10/05/18 at 23:05 Hydrocortisone (Hydrocortisone 1% Cr) 1 applic TID TOP Last administered on 10/12/18 19:53; Admin Dose 1 APPLIC; Start 10/06/18 at 09:00 Diphenhydramine HCl (Benadryl) 25 mg Q6H PRN PO ITCHING Last administered on 10/11/18 22:04; Admin Dose 25 MG; Start 10/06/18 at 04:30 Tramadol HCl (Ultram) 50 mg Q4H PRN PO BREAKTHROUGH PAIN Last administered on 10/08/18 06:30; Admin Dose 50 MG; Start 10/07/18 at 10:10 Tramadol HCl (Ultram) 100 mg Q4H PRN PO MODERATE PAIN LEVEL 4-6 Last administered on 10/12/18 19:53; Admin Dose 100 MG; Start 10/07/18 at 10:30 Guaifenesin/ Dextromethorphan (Robitussin Dm Liquid Cup) 10 ml Q6H PRN PO COUGH; Start 10/08/18 at 04:00 Miscellaneous Information (Pending [facility] Order For Wound Care) This patient sheikh... PRN PRN XX WOUND CARE; Start 10/08/18 at 04:30 Oxycodone HCl (Roxicodone) 10 mg Q4 PRN PO SEVERE PAIN LEVEL 7-10 Last a dministered on 10/11/18 11:28; Admin Dose 10 MG; Start 10/11/18 at 10:30 Ondansetron HCl (Zofran Inj) 4 mg Q6H PRN IV NAUSEA AND/OR VOMITING; Start 10/11/18 at 14:30 Ondansetron HCl (Zofran Odt) 4 mg Q6H PRN ODT NAUSEA AND/OR VOMITING Last administered on 10/12/18 08:35; Admin Dose 4 MG; Start 10/11/18 at 14:30 ANGELA MARLOW October 12, 2018 20:45
[2018-10-13 02:01] VITALS: BP 115/57; PULSE 71; RESP 18
[2018-10-13] MEDS: traMADol 50 MG TAB PO PRN ×5 (04:10→22:35)
[2018-10-13] MEDS: PANTOPRAZOLE (EC) 40 MG TAB PO SCH ×2 (06:56→18:15)
[2018-10-13 07:30] VITALS: BP 120/67; PULSE 75; RESP 18
[2018-10-13] MEDS: GUAIFENESIN LA 600 MG TABSR PO SCH ×3 (09:00→21:34)
[2018-10-13] MEDS: ALBUTEROL 0.083% (NEB) 2.5 MG/3 ML AMP HHN SCH ×3 (09:00→17:00)
[2018-10-13] MEDS: NICOTINE (14 MG/24 HR) PATCH TRANSDERM SCH (09:27)
[2018-10-13] MEDS: SPECIAL NON-STANDARD MEDICATION INH SCH ×2 (09:27→21:35)
[2018-10-13] MEDS: ASPIRIN 81 MG TAB PO SCH (09:28)
[2018-10-13] MEDS: DOCUSATE SODIUM 100 MG CAP PO SCH ×2 (09:28→21:33)
[2018-10-13] MEDS: AMLODIPINE 5 MG TAB PO SCH ×2 (09:29→21:34)
[2018-10-13] MEDS: METOPROLOL 25 MG TAB PO SCH ×2 (09:30→21:35)
[2018-10-13] MEDS: HYDROCORTISONE 1% 28 GM CR TOP SCH ×3 (09:35→21:00)
--- NOTE | 2018-10-13 12:31 | PN ---
Date/Time of Note Date/Time of Note DATE: 10/13/18 TIME: 12:30 Subjective Up for activities Objective Vital Signs Date Temp Pulse Resp B/P (MAP) Pulse Ox O2 O2 Flow FiO2 Time Delivery Rate 10/13/18 75 18 94 21 08:50 10/13/18 97.6 120/67 Room Air 07:30 (84) Intake and Output 10/12/18 10/12/18 10/13/18 1515:00 23:00 07:00 IntakeIntake Total 860 ml 200 ml OutputOutput Total 650 ml BalanceBalance 860 ml -450 ml Exam cga 85 feet [id number] Results/Medications Medications Current Medications Non-Formulary Medication 2 ea BID INH Last administered on 10/13/18 09:27; Admin Dose 2 EA; Start 10/05/18 at 22:11 Non-Formulary Medication 2 ea BID PRN INH WHEEZING AND SOB; Start 10/05/18 at 22:11 Nicotine (Nicoderm 14 Mg/ 24hr) 1 patch DAILY TRANSDERM Last administered on 10/13/18 09:27; Admin Dose 1 PATCH; Start 10/05/18 at 22:11 Pantoprazole (Protonix Tab) 40 mg BID@06,18 PO Last administered on 10/13/18 06:56; Admin Dose 40 MG; Start 10/05/18 at 22:11 Aspirin (Aspirin) 81 mg DAILY PO Last administered on 10/13/18 09:28; Admin Dose 81 MG; Start 10/05/18 at 22:11 Lactulose (Enulose) 20 gm DAILY PRN PO CONSTIPATION; Start 10/05/18 at 22:30 Acetaminophen (Tylenol Tab) 650 mg Q4H PRN PO MILD PAIN(1-3)OR ELEVATED TEMP; Start 10/05/18 at 23:00 Albuterol (Proventil 0.083% (Neb)) 2.5 mg TID RESP THERAPY HHN Last administered on 10/13/18 09:00; Admin Dose 2.5 MG; Start 10/05/18 at 23:00 Amlodipine Besylate (Norvasc) 5 mg BID PO Last administered on 10/13/18 09:29; Admin Dose 5 MG; Start 10/05/18 at 23:00 Bisacodyl (Dulcolax) 10 mg DAILY PRN PO CONSTIPATION; Start 10/05/18 at 23:30 Calcium Carbonate (Tums) 500 mg Q4H PRN PO HEARTBURN Last administered on 10/11/18 22:03; Admin Dose 500 MG; Start 10/05/18 at 23:30 Docusate Sodium (Colace) 100 mg BID PO Last administered on 10/13/18 09:28; Admin Dose 100 MG; Start 10/05/18 at 23:01 Guaifenesin (Mucinex) 600 mg BID PO Last administered on 10/08/18 09:13; Admin Dose 600 MG; Start 10/05/18 at 23:02 Magnesium Hydroxide (Milk Of Mag) 30 ml BID PRN PO CONSTIPATION Last administered on 10/12/18 13:01; Admin Dose 30 ML; Start 10/05/18 at 23:30 Metoprolol Tartrate (Lopressor) 25 mg BID PO Last administered on 10/13/18 09:30; Admin Dose 25 MG; Start 10/05/18 at 23:02 Senna (Senokot) 1 tab HS PO Last administered on 10/12/18 19:51; Admin Dose 1 TAB; Start 10/05/18 at 23:04 Zolpidem Tartrate (Ambien) 5 mg HS MAY REPEAT X 1 PRN PO INSOMNIA Last administered on 10/12/18 22:28; Admin Dose 5 MG; Start 10/05/18 at 23:05 Hydrocortisone (Hydrocortisone 1% Cr) 1 applic TID TOP Last administered on 10/13/18 09:35; Admin Dose 1 APPLIC; Start 10/06/18 at 09:00 Diphenhydramine HCl (Benadryl) 25 mg Q6H PRN PO ITCHING Last administered on 10/11/18 22:04; Admin Dose 25 MG; Start 10/06/18 at 04:30 Tramadol HCl (Ultram) 50 mg Q4H PRN PO BREAKTHROUGH PAIN Last administered on 10/08/18 06:30; Admin Dose 50 MG; Start 10/07/18 at 10:10 Tramadol HCl (Ultram) 100 mg Q4H PRN PO MODERATE PAIN LEVEL 4-6 Last administered on 10/13/18 09:28; Admin Dose 100 MG; Start 10/07/18 at 10:30 Guaifenesin/ Dextromethorphan (Robitussin Dm Liquid Cup) 10 ml Q6H PRN PO COUGH; Start 10/08/18 at 04:00 Miscellaneous Information (Pending [facility] Order For Wound Care) This patient sheikh... PRN PRN XX WOUND CARE; Start 10/08/18 at 04:30 Oxycodone HCl (Roxicodone) 10 mg Q4 PRN PO SEVERE PAIN LEVEL 7-10 Last administered on 10/11/18at 11:28; Admin Dose 10 MG; Start 10/11/18 at 10:30 Ondansetron HCl (Zofran Inj) 4 mg Q6H PRN IV NAUSEA AND/OR VOMITING; Start 10/11/18 at 14:30 Ondansetron HCl (Zofran Odt) 4 mg Q6H PRN ODT NAUSEA AND/OR VOMITING Last administered on 10/12/18at 08:35; Admin Dose 4 MG; Start 10/11/18 at 14:30 Assessment/Plan Additional Assessment/Plan Rehab- Pulmonary debility secondary to bronchopneumonia and COPD exacerbation; Left proximal humeral fracture, being treated conservatively Continue rehab Acute pain syndrome-continue current minnie History of adenocarcinoma. Hypertension. Hyperlipidemia. Gastroesophageal reflux disease. Left foot drop- AFO Coronary artery disease with history of stent. NUHA HUI MD October 13, 2018 12:31
[2018-10-13 14:00] VITALS: BP 121/64; PULSE 82; RESP 18
--- NOTE | 2018-10-13 15:34 | CONS ---
Assessment/Plan Assessment/Plan Hospital Course (Demo Recall) IMP: 1.H/O stent-per patient last placed 06/2016-took plavix x 6 months. self d/c'd asa due to easy bruising. Tolerating now. NL EF by echo this admit 2.s/p fall-? mechanical 3.HTN-somewhat labile but overall reasonable 4. Humeral fx-decresaed swelling/some pain 5.H/O OR 2006? 6.tobacco dependence 7. N/V today Recc: -Continue baby asa as tolerated -Continue norvasc/BB -Continue abx's and f/u cx data -Pain control -PT/OT Consultation Date/Type/Reason Admit Date/Time Oct 05, 2018 at 21:11 Initial Consult Date 10/05/18 Type of Consult Cardiology Reason for Consultation chest pain, HTN Requesting Provider: TONEY DEL CID MD Date/Time of Note DATE: 10/13/18 TIME: 15:33 Exam/Review of Systems Vital Signs Vitals Vital Signs Date Temp Pulse Resp B/P (MAP) Pulse Ox O2 O2 Flow FiO2 Time Delivery Rate 10/13/18 79 19 94 21 15:15 10/13/18 97.6 120/67 Room Air 07:30 (84) Intake and Output 10/12/18 10/12/18 10/13/18 1515:00 23:00 07:00 IntakeIntake Total 860 ml 200 ml OutputOutput Total 650 ml BalanceBalance 860 ml -450 ml Exam Exam Review of Systems: CONSTITUTIONAL: No fevers, chills. PULMONARY: No sob CARDIOVASCULAR: No chest pain/palpitations GASTROINTESTINAL: No nausea/vomiting. GENITOURINARY: No hematuria/dysuria. MUSCULOSKELETAL: pain in arm PSYCHIATRIC: The patient denies depression. NEUROLOGIC: No weakness Constitutional: alert Psych: no complaints Head: normocephalic ENMT: mucosa pink and moist Neck: supple, jvd (9 cm water) Respiratory: diminished breath sounds (at bases/B) Cardiovascular: regular rate and rhythm Gastrointestinal: soft, non-tender Musculoskeletal: muscle tone (normal) Extremities: edema (none) Neurological: other (No focal deficits) Medications Medications Current Medications Non-Formulary Medication 2 ea BID INH Last administered on 10/13/18at 09:27; Admin Dose 2 EA; Start 10/05/18 at 22:11 Non-Formulary Medication 2 ea BID PRN INH WHEEZING AND SOB; Start 10/05/18 at 22:11 Nicotine (Nicoderm 14 Mg/ 24hr) 1 patch DAILY TRANSDERM Last administered on 10/13/18 09:27; Admin Dose 1 PATCH; Start 10/05/18 at 22:11 Pantoprazole (Protonix Tab) 40 mg BID@06,18 PO Last administered on 10/13/18 06:56; Admin Dose 40 MG; Start 10/05/18 at 22:11 Aspirin (Aspirin) 81 mg DAILY PO Last administered on 10/13/18 09:28; Admin Dose 81 MG; Start 10/05/18 at 22:11 Lactulose (Enulose) 20 gm DAILY PRN PO CONSTIPATION; Start 10/05/18 at 22:30 Acetaminophen (Tylenol Tab) 650 mg Q4H PRN PO MILD PAIN(1-3)OR ELEVATED TEMP; Start 10/05/18 at 23:00 Albuterol (Proventil 0.083% (Neb)) 2.5 mg TID RESP THERAPY HHN Last administered on 10/13/18 15:15; Admin Dose 2.5 MG; Start 10/05/18 at 23:00 Amlodipine Besylate (Norvasc) 5 mg BID PO Last administered on 10/13/18 09:29; Admin Dose 5 MG; Start 10/05/18 at 23:00 Bisacodyl (Dulcolax) 10 mg DAILY PRN PO CONSTIPATION; Start 10/05/18 at 23:30 Calcium Carbonate (Tums) 500 mg Q4H PRN PO HEARTBURN Last administered on 10/11/18 22:03; Admin Dose 500 MG; Start 10/05/18 at 23:30 Docusate Sodium (Colace) 100 mg BID PO Last administered on 10/13/18 09:28; Admin Dose 100 MG; Start 10/05/18 at 23:01 Guaifenesin (Mucinex) 600 mg BID PO Last administered on 10/08/18 09:13; Admin Dose 600 MG; Start 10/05/18 at 23:02 Magnesium Hydroxide (Milk Of Mag) 30 ml BID PRN PO CONSTIPATION Last administ ered on 10/12/18 13:01; Admin Dose 30 ML; Start 10/05/18 at 23:30 Metoprolol Tartrate (Lopressor) 25 mg BID PO Last administered on 10/13/18 09:30; Admin Dose 25 MG; Start 10/05/18 at 23:02 Senna (Senokot) 1 tab HS PO Last administered on 10/12/18 19:51; Admin Dose 1 TAB; Start 10/05/18 at 23:04 Zolpidem Tartrate (Ambien) 5 mg HS MAY REPEAT X 1 PRN PO INSOMNIA Last administered on 10/12/18 22:28; Admin Dose 5 MG; Start 10/05/18 at 23:05 Hydrocortisone (Hydrocortisone 1% Cr) 1 applic TID TOP Last administered on 10/13/18 14:19; Admin Dose 1 APPLIC; Start 10/06/18 at 09:00 Diphenhydramine HCl (Benadryl) 25 mg Q6H PRN PO ITCHING Last administered on 10/11/18 22:04; Admin Dose 25 MG; Start 10/06/18 at 04:30 Tramadol HCl (Ultram) 50 mg Q4H PRN PO BREAKTHROUGH PAIN Last administered on 10/08/18 06:30; Admin Dose 50 MG; Start 10/07/18 at 10:10 Tramadol HCl (Ultram) 100 mg Q4H PRN PO MODERATE PAIN LEVEL 4-6 Last administered on 10/13/18 13:32; Admin Dose 100 MG; Start 10/07/18 at 10:30 Guaifenesin/ Dextromethorphan (Robitussin Dm Liquid Cup) 10 ml Q6H PRN PO COUGH; Start 10/08/18 at 04:00 Miscellaneous Information (Pending [facility] Order For Wound Care) This patient sheikh... PRN PRN XX WOUND CARE; Start 10/08/18 at 04:30 Oxycodone HCl (Roxicodone) 10 mg Q4 PRN PO SEVERE PAIN LEVEL 7-10 Last administered on 10/11/18 11:28; Admin Dose 10 MG; Start 10/11/18 at 10:30 Ondansetron HCl (Zofran Inj) 4 mg Q6H PRN IV NAUSEA AND/OR VOMITING; Start 10/11/18 at 14:30 Ondansetron HCl (Zofran Odt) 4 mg Q6H PRN ODT NAUSEA AND/OR VOMITING Last administered on 10/12/18at 08:35; Admin Dose 4 MG; Start 10/11/18 at 14:30 SAMANTHA LEONARD October 13, 2018 15:34
--- NOTE | 2018-10-13 17:54 | PN ---
Date/Time of Note Date/Time of Note DATE: 10/13/18 TIME: 17:52 Assessment/Plan VTE Prophylaxis Risk score (from Ns)>0 risk: 3 SCD applied (from Nsg): Yes Pharmacological prophylaxis: other Lines/Catheters IV Catheter Type (from Nrs): Saline Lock Assessment/Plan Hospital Course Patient complains of left upper extremity pain which is currently controlled with Ultram and oxycodone, patient is comfortable on room air without any respiratory distress. Assessment/Plan -Pulmonary Debility secondary to broncho-pneumonia, and COPD exacerbation. -Left proximal humeral fracture, status post evaluation by Dr. Burleson and orthopedic surgery consultation with recommendation to continue immobilization with sling and no weight bearing. -Coronary artery disease, history of stent placement in 2017. Continue aspirin. Dr. Strickland is following in cardiology consultation. 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 Butts in oncology consultation with recommendation to follow-up with CT scan of the chest in 3 months. Patient follows with Dr. Mackey, oncologist as an outpatient. Patient had a history of pneumonia requiring chest tube in March 2018. -GERD -Former smoker Further recommendations based on clinical course. Plan of care discussed with Dr. Awan. Exam/Review of Systems Exam Vitals Vital Signs Date Temp Pulse Resp B/P (MAP) Pulse Ox O2 O2 Flow FiO2 Time Delivery Rate 10/13/18 79 19 94 21 15:15 10/13/18 97.5 121/64 Room Air 14:00 (83) Intake and Output 10/12/18 10/12/18 10/13/18 1515:00 23:00 07:00 IntakeIntake Total 860 ml 200 ml OutputOutput Total 650 ml BalanceBalance 860 ml -450 ml Exam Constitutional: alert, oriented Respiratory: clear to auscultation Cardiovascular: nl pulses Gastrointestinal: soft, non-tender Extremities: normal pulses, other (Left upper extremity immobilized with sling) Neurological: nl mental status Medications Medication Current Medications Non-Formulary Medication 2 ea BID INH Last administered on 10/13/18at 09:27; Admin Dose 2 EA; Start 10/05/18 at 22:11 Non-Formulary Medication 2 ea BID PRN INH WHEEZING AND SOB; Start 10/05/18 at 22:11 Nicotine (Nicoderm 14 Mg/ 24hr) 1 patch DAILY TRANSDERM Last administered on 10/13/18 09:27; Admin Dose 1 PATCH; Start 10/05/18 at 22:11 Pantoprazole (Protonix Tab) 40 mg BID@06,18 PO Last administered on 10/13/18 06:56; Admin Dose 40 MG; Start 10/05/18 at 22:11 Aspirin (Aspirin) 81 mg DAILY PO Last administered on 10/13/18 09:28; Admin Dose 81 MG; Start 10/05/18 at 22:11 Lactulose (Enulose) 20 gm DAILY PRN PO CONSTIPATION; Start 10/05/18 at 22:30 Acetaminophen (Tylenol Tab) 650 mg Q4H PRN PO MILD PAIN(1-3)OR ELEVATED TEMP; Start 10/05/18 at 23:00 Albuterol (Proventil 0.083% (Neb)) 2.5 mg TID RESP THERAPY HHN Last administered on 10/13/18 15:15; Admin Dose 2.5 MG; Start 10/05/18 at 23:00 Amlodipine Besylate (Norvasc) 5 mg BID PO Last administered on 10/13/18 09:29; Admin Dose 5 MG; Start 10/05/18 at 23:00 Bisacodyl (Dulcolax) 10 mg DAILY PRN PO CONSTIPATION; Start 10/05/18 at 23:30 Calcium Carbonate (Tums) 500 mg Q4H PRN PO HEARTBURN Last administered on 10/11/18 22:03; Admin Dose 500 MG; Start 10/05/18 at 23:30 Docusate Sodium (Colace) 100 mg BID PO Last administered on 10/13/18 09:28; Admin Dose 100 MG; Start 10/05/18 at 23:01 Guaifenesin (Mucinex) 600 mg BID PO Last administered on 10/08/18 09:13; Admin Dose 600 MG; Start 10/05/18 at 23:02 Magnesium Hydroxide (Milk Of Mag) 30 ml BID PRN PO CONSTIPATION Last administered on 10/12/18 13:01; Admin Dose 30 ML; Start 10/05/18 at 23:30 Metoprolol Tartrate (Lopressor) 25 mg BID PO Last administered on 10/13/18 09:30; Admin Dose 25 MG; Start 10/05/18 at 23:02 Senna (Senokot) 1 tab HS PO Last administered on 10/12/18 19:51; Admin Dose 1 TAB; Start 10/05/18 at 23:04 Zolpidem Tartrate (Ambien) 5 mg HS MAY REPEAT X 1 PRN PO INSOMNIA Last administered on 10/12/18 22:28; Admin Dose 5 MG; Start 10/05/18 at 23:05 Hydrocortisone (Hydrocortisone 1% Cr) 1 applic TID TOP Last administered on 10/13/18 14:19; Admin Dose 1 APPLIC; Start 10/06/18 at 09:00 Diphenhydramine HCl (Benadryl) 25 mg Q6H PRN PO ITCHING Last administered on 10/11/18 22:04; Admin Dose 25 MG; Start 10/06/18 at 04:30 Tramadol HCl (Ultram) 50 mg Q4H PRN PO BREAKTHROUGH PAIN Last administered on 10/08/18 06:30; Admin Dose 50 MG; Start 10/07/18 at 10:10 Tramadol HCl (Ultram) 100 mg Q4H PRN PO MODERATE PAIN LEVEL 4-6 Last administered on 10/13/18 13:32; Admin Dose 100 MG; Start 10/07/18 at 10:30 Guaifenesin/ Dextromethorphan (Robitussin Dm Liquid Cup) 10 ml Q6H PRN PO COUGH; Start 10/08/18 at 04:00 Miscellaneous Information (Pending [facility] Order For Wound Care) This patient sheikh... PRN PRN XX WOUND CARE; Start 10/08/18 at 04:30 Oxycodone HCl (Roxicodone) 10 mg Q4 PRN PO SEVERE PAIN LEVEL 7-10 Last administered on 10/11/18 11:28; Admin Dose 10 MG; Start 10/11/18 at 10:30 Ondansetron HCl (Zofran Inj) 4 mg Q6H PRN IV NAUSEA AND/OR VOMITING; Start 10/11/18 at 14:30 Ondansetron HCl (Zofran Odt) 4 mg Q6H PRN ODT NAUSEA AND/OR VOMITING Last administered on 10/12/18 08:35; Admin Dose 4 MG; Start 10/11/18 at 14:30 ANGELA MARLOW October 13, 2018 17:54
[2018-10-13 19:16] VITALS: BP 129/67; PULSE 72; RESP 18
--- NOTE | 2018-10-13 19:44 | CONS ---
DATE OF ADMISSION: 10/05/2018 DATE OF CONSULTATION: 10/13/2018 TYPE OF CONSULTATION: Psychological. REFERRING PHYSICIAN: Nuha Raphael MD CONSULTING PSYCHOLOGIST: Elsie Yanez, PhD REASON FOR CONSULTATION: This consultation requested by Dr. Fariba Raphael in order to evaluate the c ognitive and emotional functioning of this patient related to her present medical condition. HISTORY OF PRESENT ILLNESS: The patient is a 72-year-old female. The patient has a history of multi ple medical problems. The patient had worsening of cough on exertion. The patient then also sustain ed a mechanical fall and was admitted to [facility]. The patient was found to have a left humeral fracture and was treated conservatively with immobilization and splint and sling. Th e patient was cleared medically and then sent to the acute rehabilitation unit for acute multidiscipl inary rehabilitation. The patient is very frustrated by the fall. The patient says that she has had numerous problems with falls that she does have a drop foot. The patient is motivated to get better and does want to return to her previous level of functioning and return home as soon as possible. FAMILY AND SOCIAL HISTORY: The patient lives in her own home in [place]. The patient had lived by herself, but recently her niece and her nieces' 1-year and 16-year-old son moved in approximately a year ago to help oversee her. The patient's niece works and her grandnephew goes to school, so th ey are not around during the day. The patient is used to being independent in taking care of herself . The patient wants to return to do this. MEDICATIONS: The patient is currently not on any psychotropic medication. SUBSTANCE USE: The patient reports that she does not use alcohol or other drugs. The patient report s that she does not smoke. MENTAL STATUS EXAMINATION: APPEARANCE: The patient was seen up in her wheelchair. She appears to be of average height and weig ht. The patient is right-handed. BEHAVIOR: The patient was cooperative during the consultation. The patient did attempt to answer al l questions presented to her by the interviewer. MOOD AND AFFECT: The patient does say that she has some level of anxiety and frustration. She denie s any level of depression at the present time, but says that she is about her fall and does wan t to be able to return to her previous level of functioning. PERCEPTION: The patient reports no hallucinations or delusions. The patient was alert to person, pl lety, situation and time. MEMORY AND COGNITION: The patient's memory and cognition appear to be intact. She did not have diff iculty recalling recent or remote events. The patient was able to state the month and the year. The patient was able to state the name of the hospital. The patient was able to state the name of the [facility]. She could not remember the name of the governor of the [facility]. She was able to admit name the mayor of the [facility]. The patient was able to spell " world" backwards. Was able to do 5 serial-7 subtractions from 100. She made 1 error that she self-c orrected and was able do other subtractions and made another error that she self-corrected and was ab le to do a total of 5 serial-7 subtractions. Overall, the patient appears to have intact cognitive a bilities. INTELLIGENCE: Intelligence appears to fall in the average to above-average range. INSIGHT: Good. JUDGMENT: Good. THOUGHT CONTENT: The patient is concerned about her present medical condition. The patient does wan t to return to her previous level of functioning and return home as soon as possible. DISCUSSION: The patient can likely benefit from some cognitive/behavioral psychotherapy while she is on the unit. This psychotherapy would focus on her overall frustration and anxiety about all her me dical problems and her issues regarding her fall. 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 Thank you very much, Dr. Fariba Raphael, for referring this individual. Please do not hesitate to rishi hernandez if you have additional questions. Dictated By: ELSIE YANEZ PHD HORACE/OWEN Conf#: [id number] DID#: [id number] CC: NUHA RAPHAEL MD;*EndCC*
[2018-10-13] MEDS: SENNA TAB PO SCH (21:34)
[2018-10-13] MEDS ORDERED: oxyCODONE 5 MG TAB PO PRN (22:00)
[2018-10-13] MEDS: ZOLPIDEM 5 MG TAB PO PRN (22:35)
[2018-10-14] MEDS: ZOLPIDEM 5 MG TAB PO PRN (00:07)
[2018-10-14 02:00] VITALS: BP 133/62; PULSE 80; RESP 18
[2018-10-14] MEDS: traMADol 50 MG TAB PO PRN ×5 (04:10→20:33)
[2018-10-14] MEDS: PANTOPRAZOLE (EC) 40 MG TAB PO SCH ×2 (06:20→17:03)
[2018-10-14 07:00] VITALS: BP 116/62; PULSE 74; RESP 18
[2018-10-14] MEDS: DOCUSATE SODIUM 100 MG CAP PO SCH ×2 (08:25→20:32)
[2018-10-14] MEDS: ASPIRIN 81 MG TAB PO SCH (08:25)
[2018-10-14] MEDS: GUAIFENESIN LA 600 MG TABSR PO SCH ×2 (08:25→20:32)
[2018-10-14] MEDS: AMLODIPINE 5 MG TAB PO SCH ×2 (08:25→20:32)
[2018-10-14] MEDS: METOPROLOL 25 MG TAB PO SCH ×2 (08:26→20:33)
[2018-10-14] MEDS: NICOTINE (14 MG/24 HR) PATCH TRANSDERM SCH (08:32)
[2018-10-14] MEDS: ALBUTEROL 0.083% (NEB) 2.5 MG/3 ML AMP HHN SCH ×3 (08:42→16:44)
[2018-10-14] MEDS: HYDROCORTISONE 1% 28 GM CR TOP SCH ×3 (09:00→20:34)
[2018-10-14] MEDS: SPECIAL NON-STANDARD MEDICATION INH SCH ×2 (11:18→20:34)
--- NOTE | 2018-10-14 13:04 | PN ---
Date/Time of Note Date/Time of Note DATE: 10/14/18 TIME: 13:02 Subjective No new complaints Objective Vital Signs Date Temp Pulse Resp B/P (MAP) Pulse Ox O2 O2 Flow FiO2 Time Delivery Rate 10/14/18 72 18 95 21 08:52 10/14/18 97.9 116/62 Room Air 07:00 (80) Intake and Output 10/13/18 10/13/18 10/14/18 1515:00 23:00 07:00 IntakeIntake Total 240 ml 840 ml 550 ml BalanceBalance 240 ml 840 ml 550 ml Exam pulm-cta sba transfers Results/Medications Medications Current Medications Non-Formulary Medication 2 ea BID INH Last administered on 10/14/18 11:18; Admin Dose 2 EA; Start 10/05/18 at 22:11 Non-Formulary Medication 2 ea BID PRN INH WHEEZING AND SOB; Start 10/05/18 at 22:11 Nicotine (Nicoderm 14 Mg/ 24hr) 1 patch DAILY TRANSDERM Last administered on 10/14/18 08:32; Admin Dose 1 PATCH; Start 10/05/18 at 22:11 Pantoprazole (Protonix Tab) 40 mg BID@06,18 PO Last administered on 10/14/18 06:20; Admin Dose 40 MG; Start 10/05/18 at 22:11 Aspirin (Aspirin) 81 mg DAILY PO Last administered on 10/14/18 08:25; Admin Dose 81 MG; Start 10/05/18 at 22:11 Lactulose (Enulose) 20 gm DAILY PRN PO CONSTIPATION; Start 10/05/18 at 22:30 Acetaminophen (Tylenol Tab) 650 mg Q4H PRN PO MILD PAIN(1-3)OR ELEVATED TEMP; Start 10/05/18 at 23:00 Albuterol (Proventil 0.083% (Neb)) 2.5 mg TID RESP THERAPY HHN Last administered on 10/14/18 12:55; Admin Dose 2.5 MG; Start 10/05/18 at 23:00 Amlodipine Besylate (Norvasc) 5 mg BID PO Last administered on 10/14/18 08:25; Admin Dose 5 MG; Start 10/05/18 at 23:00 Bisacodyl (Dulcolax) 10 mg DAILY PRN PO CONSTIPATION; Start 10/05/18 at 23:30 Calcium Carbonate (Tums) 500 mg Q4H PRN PO HEARTBURN Last administered on 10/11/18 22:03; Admin Dose 500 MG; Start 10/05/18 at 23:30 Docusate Sodium (Colace) 100 mg BID PO Last administered on 10/14/18 08:25; Admin Dose 100 MG; Start 10/05/18 at 23:01 Guaifenesin (Mucinex) 600 mg BID PO Last administered on 10/14/18 08:25; Admin Dose 600 MG; Start 10/05/18 at 23:02 Magnesium Hydroxide (Milk Of Mag) 30 ml BID PRN PO CONSTIPATION Last administered on 10/12/18 13:01; Admin Dose 30 ML; Start 10/05/18 at 23:30 Metoprolol Tartrate (Lopressor) 25 mg BID PO Last administered on 10/14/18 08:26; Admin Dose 25 MG; Start 10/05/18 at 23:02 Senna (Senokot) 1 tab HS PO Last administered on 10/13/18 21:34; Admin Dose 1 TAB; Start 10/05/18 at 23:04 Zolpidem Tartrate (Ambien) 5 mg HS MAY REPEAT X 1 PRN PO INSOMNIA Last administered on 10/14/18 00:07; Admin Dose 5 MG; Start 10/05/18 at 23:05 Hydrocortisone (Hydrocortisone 1% Cr) 1 applic TID TOP Last administered on 10/13/18 14:19; Admin Dose 1 APPLIC; Start 10/06/18 at 09:00 Diphenhydramine HCl (Benadryl) 25 mg Q6H PRN PO ITCHING Last administered on 10/11/18 22:04; Admin Dose 25 MG; Start 10/06/18 at 04:30 Tramadol HCl (Ultram) 50 mg Q4H PRN PO BREAKTHROUGH PAIN Last administered on 10/14/18 11:53; Admin Dose 50 MG; Start 10/07/18 at 10:10 Tramadol HCl (Ultram) 100 mg Q4H PRN PO MODERATE PAIN LEVEL 4-6 Last administered on 10/14/18 08:26; Admin Dose 100 MG; Start 10/07/18 at 10:30 Guaifenesin/ Dextromethorphan (Robitussin Dm Liquid Cup) 10 ml Q6H PRN PO COUGH; Start 10/08/18 at 04:00 Miscellaneous Information (Pending [facility]yl Order For Wound Care) This patient sheikh... PRN PRN XX WOUND CARE; Start 10/08/18 at 04:30 Ondansetron HCl (Zofran Inj) 4 mg Q6H PRN IV NAUSEA AND/OR VOMITING; Start 10/11/18 at 14:30 Ondansetron HCl (Zofran Odt) 4 mg Q6H PRN ODT NAUSEA AND/OR VOMITING Last administered on 10/12/18at 08:35; Admin Dose 4 MG; Start 10/11/18 at 14:30 Oxycodone HCl (Roxicodone) 5 mg Q4 PRN PO SEVERE PAIN LEVEL 7-10; Start 10/13/18 at 22:00 Assessment/Plan Additional Assessment/Plan Rehab- Pulmonary debility secondary to bronchopneumonia and COPD exacerbation; Left proximal humeral fracture, being treated conservatively Continue rehab, overall improving Acute pain syndrome-continue current meds History of adenocarcinoma. Hypertension. Hyperlipidemia. Gastroesophageal reflux disease. Left foot drop- AFO Coronary artery disease with history of stent. NUHA HUI MD October 14, 2018 13:04
--- NOTE | 2018-10-14 13:28 | CONS ---
Assessment/Plan Assessment/Plan Hospital Course (Demo Recall) IMP: 1.H/O stent-per patient last placed 06/2016-took plavix x 6 months. self d/c'd asa due to easy bruising. Tolerating now. NL EF by echo this admit 2.s/p fall-? mechanical 3.HTN-somewhat labile but overall reasonable 4. Humeral fx-decresaed swelling/some pain 5.H/O MS 2006? 6.tobacco dependence 7. N/V-recurrent this am Recc: -Continue baby asa as tolerated -Continue norvasc/BB -Continue abx's and f/u cx data -Pain control -PT/OT -Rx nausea -check KUB Consultation Date/Type/Reason Admit Date/Time Oct 05, 2018 at 21:11 Initial Consult Date 10/05/18 Type of Consult Cardiology Reason for Consultation HTN Requesting Provider: TONEY DEL CID MD Date/Time of Note DATE: 10/14/18 TIME: 13:27 Exam/Review of Systems Vital Signs Vitals Vital Signs Date Temp Pulse Resp B/P (MAP) Pulse Ox O2 O2 Flow FiO2 Time Delivery Rate 10/14/18 74 18 94 21 13:05 10/14/18 97.9 116/62 Room Air 07:00 (80) Intake and Output 10/13/18 10/13/18 10/14/18 1515:00 23:00 07:00 IntakeIntake Total 240 ml 840 ml 550 ml BalanceBalance 240 ml 840 ml 550 ml Exam Exam Review of Systems: CONSTITUTIONAL: No fevers, chills. PULMONARY: No sob CARDIOVASCULAR: No chest pain/palpitations GASTROINTESTINAL: Pos N/V GENITOURINARY: No hematuria/dysuria. MUSCULOSKELETAL: No myagias/arthalgias. PSYCHIATRIC: The patient denies depression. NEUROLOGIC: No weakness Constitutional: alert, oriented Psych: no complaints Head: normocephalic ENMT: mucosa pink and moist Neck: supple, jvd (9 cm water) Respiratory: diminished breath sounds Cardiovascular: regular rate and rhythm Gastrointestinal: soft, non-tender Musculoskeletal: muscle weakness (mild generalized) Extremities: edema (none) Neurological: other (No focal deficits) Medications Medications Current Medications Non-Formulary Medication 2 ea BID INH Last administered on 10/14/18at 11:18; Admin Dose 2 EA; Start 10/05/18 at 22:11 Non-Formulary Medication 2 ea BID PRN INH WHEEZING AND SOB; Start 10/05/18 at 22:11 Nicotine (Nicoderm 14 Mg/ 24hr) 1 patch DAILY TRANSDERM Last administered on 10/14/18 08:32; Admin Dose 1 PATCH; Start 10/05/18 at 22:11 Pantoprazole (Protonix Tab) 40 mg BID@06,18 PO Last administered on 10/14/18 06:20; Admin Dose 40 MG; Start 10/05/18 at 22:11 Aspirin (Aspirin) 81 mg DAILY PO Last administered on 10/14/18 08:25; Admin Dose 81 MG; Start 10/05/18 at 22:11 Lactulose (Enulose) 20 gm DAILY PRN PO CONSTIPATION; Start 10/05/18 at 22:30 Acetaminophen (Tylenol Tab) 650 mg Q4H PRN PO MILD PAIN(1-3)OR ELEVATED TEMP; Start 10/05/18 at 23:00 Albuterol (Proventil 0.083% (Neb)) 2.5 mg TID RESP THERAPY HHN Last administered on 10/14/18 12:55; Admin Dose 2.5 MG; Start 10/05/18 at 23:00 Amlodipine Besylate (Norvasc) 5 mg BID PO Last administered on 10/14/18 08:25; Admin Dose 5 MG; Start 10/05/18 at 23:00 Bisacodyl (Dulcolax) 10 mg DAILY PRN PO CONSTIPATION; Start 10/05/18 at 23:30 Calcium Carbonate (Tums) 500 mg Q4H PRN PO HEARTBURN Last administered on 10/11/18 22:03; Admin Dose 500 MG; Start 10/05/18 at 23:30 Docusate Sodium (Colace) 100 mg BID PO Last administered on 10/14/18 08:25; Admin Dose 100 MG; Start 10/05/18 at 23:01 Guaifenesin (Mucinex) 600 mg BID PO Last administered on 10/14/18 08:25; Admin Dose 600 MG; Start 10/05/18 at 23:02 Magnesium Hydroxide (Milk Of Mag) 30 ml BID PRN PO CONSTIPATION Last administered on 10/12/18 13:01; Admin Dose 30 ML; Start 10/05/18 at 23:30 Metoprolol Tartrate (Lopressor) 25 mg BID PO Last administered on 10/14/18 08:26; Admin Dose 25 MG; Start 10/05/18 at 23:02 Senna (Senokot) 1 tab HS PO Last administered on 10/13/18 21:34; Admin Dose 1 TAB; Start 10/05/18 at 23:04 Zolpidem Tartrate (Ambien) 5 mg HS MAY REPEAT X 1 PRN PO INSOMNIA Last administered on 10/14/18 00:07; Admin Dose 5 MG; Start 10/05/18 at 23:05 Hydrocortisone (Hydrocortisone 1% Cr) 1 applic TID TOP Last administered on 10/13/18 14:19; Admin Dose 1 APPLIC; Start 10/06/18 at 09:00 Diphenhydramine HCl (Benadryl) 25 mg Q6H PRN PO ITCHING Last administered on 10/11/18 22:04; Admin Dose 25 MG; Start 10/06/18 at 04:30 Tramadol HCl (Ultram) 50 mg Q4H PRN PO BREAKTHROUGH PAIN Last administered on 10/14/18 11:53; Admin Dose 50 MG; Start 10/07/18 at 10:10 Tramadol HCl (Ultram) 100 mg Q4H PRN PO MODERATE PAIN LEVEL 4-6 Last administered on 10/14/18 08:26; Admin Dose 100 MG; Start 10/07/18 at 10:30 Guaifenesin/ Dextromethorphan (Robitussin Dm Liquid Cup) 10 ml Q6H PRN PO COUGH; Start 10/08/18 at 04:00 Miscellaneous Information (Pending [facility]yl Order For Wound Care) This patient sheikh... PRN PRN XX WOUND CARE; Start 10/08/18 at 04:30 Ondansetron HCl (Zofran Inj) 4 mg Q6H PRN IV NAUSEA AND/OR VOMITING; Start 10/11/18 at 14:30 Ondansetron HCl (Zofran Odt) 4 mg Q6H PRN ODT NAUSEA AND/OR VOMITING Last administered on 10/12/18 08:35; Admin Dose 4 MG; Start 10/11/18 at 14:30 Oxycodone HCl (Roxicodone) 5 mg Q4 PRN PO SEVERE PAIN LEVEL 7-10; Start 10/13/18 at 22:00 SAMANTHA LEONARD October 14, 2018 13:28
[2018-10-14 14:00] VITALS: BP 122/58; PULSE 74; RESP 18
[2018-10-14] MEDS: MAGNESIUM HYDROXIDE 30ML CUP PO PRN (17:43)
--- NOTE | 2018-10-14 18:01 | PN ---
Date/Time of Note Date/Time of Note DATE: 10/14/18 TIME: 18:00 Assessment/Plan VTE Prophylaxis Risk score (from Ns)>0 risk: 3 SCD applied (from Ns): Yes Pharmacological prophylaxis: other Lines/Catheters IV Catheter Type (from [facility]): Saline Lock Assessment/Plan Hospital Course No acute events overnight, patient complains of slight abdominal pain however able to tolerate diet, follow-up on KUB results. Assessment/Plan -Pulmonary Debility secondary to broncho-pneumonia, and COPD exacerbation. -Left proximal humeral fracture, status post evaluation by Dr. Burleson and orthopedic surgery consultation with recommendation to continue immobilization with sling and no weight bearing. -Coronary artery disease, history of stent placement in 2017. Continue aspirin. Dr. Strickland is following in cardiology consultation. 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 Butts in oncology consultation with recommendation to follow-up with CT scan of the chest in 3 months. Patient follows with Dr. Mackey, oncologist as an outpatient. Patient had a history of pneumonia requiring chest tube in March 2018. -GERD -Former smoker Further recommendations based on clinical course. Plan of care discussed with Dr. Awan. Exam/Review of Systems Exam Vitals Vital Signs Date Temp Pulse Resp B/P (MAP) Pulse Ox O2 O2 Flow FiO2 Time Delivery Rate 10/14/18 70 18 94 21 16:54 10/14/18 97.8 122/58 Room Air 14:00 (79) Intake and Output 10/13/18 10/13/18 10/14/18 1515:00 23:00 07:00 IntakeIntake Total 240 ml 840 ml 550 ml BalanceBalance 240 ml 840 ml 550 ml Exam Constitutional: alert, oriented Respiratory: clear to auscultation Cardiovascular: nl pulses Gastrointestinal: soft, non-tender Extremities: normal pulses, other (Left upper extremity immobilized with sling) Neurological: nl mental status Medications Medication Current Medications Non-Formulary Medication 2 ea BID INH Last administered on 10/14/18at 11:18; Admin Dose 2 EA; Start 10/05/18 at 22:11 Non-Formulary Medication 2 ea BID PRN INH WHEEZING AND SOB; Start 10/05/18 at 22:11 Nicotine (Nicoderm 14 Mg/ 24hr) 1 patch DAILY TRANSDERM Last administered on 10/14/18 08:32; Admin Dose 1 PATCH; Start 10/05/18 at 22:11 Pantoprazole (Protonix Tab) 40 mg BID@06,18 PO Last administered on 10/14/18 17:03; Admin Dose 40 MG; Start 10/05/18 at 22:11 Aspirin (Aspirin) 81 mg DAILY PO Last administered on 10/14/18 08:25; Admin Dose 81 MG; Start 10/05/18 at 22:11 Lactulose (Enulose) 20 gm DAILY PRN PO CONSTIPATION; Start 10/05/18 at 22:30 Acetaminophen (Tylenol Tab) 650 mg Q4H PRN PO MILD PAIN(1-3)OR ELEVATED TEMP; Start 10/05/18 at 23:00 Albuterol (Proventil 0.083% (Neb)) 2.5 mg TID RESP THERAPY HHN Last administered on 10/14/18 16:44; Admin Dose 2.5 MG; Start 10/05/18 at 23:00 Amlodipine Besylate (Norvasc) 5 mg BID PO Last administered on 10/14/18 08:25; Admin Dose 5 MG; Start 10/05/18 at 23:00 Bisacodyl (Dulcolax) 10 mg DAILY PRN PO CONSTIPATION; Start 10/05/18 at 23:30 Calcium Carbonate (Tums) 500 mg Q4H PRN PO HEARTBURN Last administered on 10/11/18 22:03; Admin Dose 500 MG; Start 10/05/18 at 23:30 Docusate Sodium (Colace) 100 mg BID PO Last administered on 10/14/18 08:25; Admin Dose 100 MG; Start 10/05/18 at 23:01 Guaifenesin (Mucinex) 600 mg BID PO Last administered on 10/14/18 08:25; Admin Dose 600 MG; Start 10/05/18 at 23:02 Magnesium Hydroxide (Milk Of Mag) 30 ml BID PRN PO CONSTIPATION Last ad ministered on 10/14/18 17:43; Admin Dose 30 ML; Start 10/05/18 at 23:30 Metoprolol Tartrate (Lopressor) 25 mg BID PO Last administered on 10/14/18 08:26; Admin Dose 25 MG; Start 10/05/18 at 23:02 Senna (Senokot) 1 tab HS PO Last administered on 10/13/18 21:34; Admin Dose 1 TAB; Start 10/05/18 at 23:04 Zolpidem Tartrate (Ambien) 5 mg HS MAY REPEAT X 1 PRN PO INSOMNIA Last adminis tered on 10/14/18 00:07; Admin Dose 5 MG; Start 10/05/18 at 23:05 Hydrocortisone (Hydrocortisone 1% Cr) 1 applic TID TOP Last administered on 10/14/18 13:42; Admin Dose 1 APPLIC; Start 10/06/18 at 09:00 Diphenhydramine HCl (Benadryl) 25 mg Q6H PRN PO ITCHING Last administered on 10/11/18 22:04; Admin Dose 25 MG; Start 10/06/18 at 04:30 Tramadol HCl (Ultram) 50 mg Q4H PRN PO BREAKTHROUGH PAIN Last administered on 10/14/18 11:53; Admin Dose 50 MG; Start 10/07/18 at 10:10 Tramadol HCl (Ultram) 100 mg Q4H PRN PO MODERATE PAIN LEVEL 4-6 Last administered on 10/14/18 15:39; Admin Dose 100 MG; Start 10/07/18 at 10:30 Guaifenesin/ Dextromethorphan (Robitussin Dm Liquid Cup) 10 ml Q6H PRN PO COUGH; Start 10/08/18 at 04:00 [facility] This patient sheikh... PRN PRN XX WOUND CARE; Start 10/08/18 at 04:30 Ondansetron HCl (Zofran Inj) 4 mg Q6H PRN IV NAUSEA AND/OR VOMITING; Start 10/11/18 at 14:30 Ondansetron HCl (Zofran Odt) 4 mg Q6H PRN ODT NAUSEA AND/OR VOMITING Last adm inistered on 10/12/18 08:35; Admin Dose 4 MG; Start 10/11/18 at 14:30 Oxycodone HCl (Roxicodone) 5 mg Q4 PRN PO SEVERE PAIN LEVEL 7-10; Start 10/13/18 at 22:00 ANGELA MARLOW October 14, 2018 18:01
[2018-10-14 20:25] VITALS: BP 138/63; PULSE 76; RESP 18
[2018-10-14] MEDS: SENNA TAB PO SCH (20:32)
[2018-10-15] MEDS: ZOLPIDEM 5 MG TAB PO PRN (01:08)
[2018-10-15 02:41] VITALS: BP 129/60; PULSE 71; RESP 18
[2018-10-15] MEDS: traMADol 50 MG TAB PO PRN ×4 (03:37→20:09)
[2018-10-15] MEDS: PANTOPRAZOLE (EC) 40 MG TAB PO SCH ×2 (06:20→18:27)
[2018-10-15] MEDS: ONDANSETRON (ODT) 4 MG TAB ODT PRN ×2 (06:23→12:29)
--- NOTE | 2018-10-15 06:26 | PN ---
Date/Time of Note Date/Time of Note DATE: 10/15/18 TIME: 06:26 Objective Vital Signs Date Temp Pulse Resp B/P (MAP) Pulse Ox O2 O2 Flow FiO2 Time Delivery Rate 10/15/18 97.9 71 18 129/60 93 Room Air 02:41 (83) 10/14/18 21 16:54 Intake and Output 10/14/18 10/14/18 10/15/18 1515:00 23:00 07:00 IntakeIntake Total 1250 ml OutputOutput Total 750 ml BalanceBalance 500 ml Results/Medications Medications Current Medications Non-Formulary Medication 2 ea BID INH Last administered on 10/14/18 11:18; Admin Dose 2 EA; Start 10/05/18 at 22:11 Non-Formulary Medication 2 ea BID PRN INH WHEEZING AND SOB; Start 10/05/18 at 22:11 Nicotine (Nicoderm 14 Mg/ 24hr) 1 patch DAILY TRANSDERM Last administered on 10/14/18 08:32; Admin Dose 1 PATCH; Start 10/05/18 at 22:11 Pantoprazole (Protonix Tab) 40 mg BID@06,18 PO Last administered on 10/15/18 06:20; Admin Dose 40 MG; Start 10/05/18 at 22:11 Aspirin (Aspirin) 81 mg DAILY PO Last administered on 10/14/18 08:25; Admin Dose 81 MG; Start 10/05/18 at 22:11 Lactulose (Enulose) 20 gm DAILY PRN PO CONSTIPATION; Start 10/05/18 at 22:30 Acetaminophen (Tylenol Tab) 650 mg Q4H PRN PO MILD PAIN(1-3)OR ELEVATED TEMP; Start 10/05/18 at 23:00 Albuterol (Proventil 0.083% (Neb)) 2.5 mg TID RESP THERAPY HHN Last administered on 10/14/18 16:44; Admin Dose 2.5 MG; Start 10/05/18 at 23:00 Amlodipine Besylate (Norvasc) 5 mg BID PO Last administered on 10/14/18 20:32; Admin Dose 5 MG; Start 10/05/18 at 23:00 Bisacodyl (Dulcolax) 10 mg DAILY PRN PO CONSTIPATION; Start 10/05/18 at 23:30 Calcium Carbonate (Tums) 500 mg Q4H PRN PO HEARTBURN Last administered on 10/11/18 22:03; Admin Dose 500 MG; Start 10/05/18 at 23:30 Docusate Sodium (Colace) 100 mg BID PO Last administered on 10/14/18 20:32; Admin Dose 100 MG; Start 10/05/18 at 23:01 Guaifenesin (Mucinex) 600 mg BID PO Last administered on 10/14/18 20:32; Admin Dose 600 MG; Start 10/05/18 at 23:02 Magnesium Hydroxide (Milk Of Mag) 30 ml BID PRN PO CONSTIPATION Last administered on 10/14/18 17:43; Admin Dose 30 ML; Start 10/05/18 at 23:30 Metoprolol Tartrate (Lopressor) 25 mg BID PO Last administered on 10/14/18 20:33; Admin Dose 25 MG; Start 10/05/18 at 23:02 Senna (Senokot) 1 tab HS PO Last administered on 10/14/18 20:32; Admin Dose 1 TAB; Start 10/05/18 at 23:04 Zolpidem Tartrate (Ambien) 5 mg HS MAY REPEAT X 1 PRN PO INSOMNIA Last administered on 10/15/18 01:08; Admin Dose 5 MG; Start 10/05/18 at 23:05 Hydrocortisone (Hydrocortisone 1% Cr) 1 applic TID TOP Last administered on 10/14/18 20:34; Admin Dose 1 APPLIC; Start 10/06/18 at 09:00 Diphenhydramine HCl (Benadryl) 25 mg Q6H PRN PO ITCHING Last administered on 22:04; Admin Dose 25 MG; Start 10/06/18 at 04:30 Tramadol HCl (Ultram) 50 mg Q4H PRN PO BREAKTHROUGH PAIN Last administered on 10/14/18 11:53; Admin Dose 50 MG; Start 10/07/18 at 10:10 Tramadol HCl (Ultram) 100 mg Q4H PRN PO MODERATE PAIN LEVEL 4-6 Last administered on 10/15/18 03:37; Admin Dose 100 MG; Start 10/07/18 at 10:30 Guaifenesin/ Dextromethorphan (Robitussin Dm Liquid Cup) 10 ml Q6H PRN PO COUGH; Start 10/08/18 at 04:00 Miscellaneous Information (Pending Santyl Order For Wound Care) This patient sheikh... PRN PRN XX WOUND CARE; Start 10/08/18 at 04:30 Ondansetron HCl (Zofran Inj) 4 mg Q6H PRN IV NAUSEA AND/OR VOMITING; Start 10/11/18 at 14:30 Ondansetron HCl (Zofran Odt) 4 mg Q6H PRN ODT NAUSEA AND/OR VOMITING Last administered on 10/15/18at 06:23; Admin Dose 4 MG; Start 10/11/18 at 14:30 Oxycodone HCl (Roxicodone) 5 mg Q4 PRN PO SEVERE PAIN LEVEL 7-10; Start 10/13/18 at 22:00 NUHA HUI MD October 15, 2018 06:26
[2018-10-15 07:30] VITALS: BP 118/61; PULSE 79; RESP 20
[2018-10-15] MEDS: GUAIFENESIN LA 600 MG TABSR PO SCH ×2 (09:00→21:00)
[2018-10-15] MEDS: SPECIAL NON-STANDARD MEDICATION INH SCH ×2 (09:23→21:00)
[2018-10-15] MEDS: NICOTINE (14 MG/24 HR) PATCH TRANSDERM SCH (09:23)
[2018-10-15] MEDS: AMLODIPINE 5 MG TAB PO SCH ×2 (09:24→20:11)
[2018-10-15] MEDS: DOCUSATE SODIUM 100 MG CAP PO SCH ×2 (09:24→20:10)
[2018-10-15] MEDS: METOPROLOL 25 MG TAB PO SCH ×2 (09:25→20:10)
[2018-10-15] MEDS: HYDROCORTISONE 1% 28 GM CR TOP SCH ×3 (09:32→20:12)
[2018-10-15] MEDS: ALBUTEROL 0.083% (NEB) 2.5 MG/3 ML AMP HHN SCH ×3 (09:33→17:07)
[2018-10-15] MEDS: ASPIRIN 81 MG TAB PO SCH (09:39)
--- NOTE | 2018-10-15 10:24 | PN ---
Date/Time of Note Date/Time of Note DATE: 10/15/18 TIME: 10:24 Assessment/Plan VTE Prophylaxis Risk score (from Nsg)>0 risk: 6 SCD applied (from Nsg): No Lines/Catheters IV Catheter Type (from Nrsg): Saline Lock Assessment/Plan Assessment/Plan -Pulmonary Debility secondary to broncho-pneumonia, and COPD exacerbation. -Left proximal humeral fracture, status post evaluation by Dr. Burleson and orthopedic surgery consultation with recommendation to continue immobilization with sling and no weight bearing. -Coronary artery disease, history of stent placement in 2017. Continue aspirin. Dr. Strickland is following in cardiology consultation. 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 Butts in oncology consultation with recommendation to follow-up with CT scan of the chest in 3 months. Patient follows with Dr. Mackey, oncologist as an outpatient. Patient had a history of pneumonia requiring chest tube in March 2018. -GERD -Former smoker Further recommendations based on clinical course. Plan of care discussed with Dr. Awan. Exam/Review of Systems Exam Vitals Vital Signs Date Temp Pulse Resp B/P (MAP) Pulse Ox O2 O2 Flow FiO2 Time Delivery Rate 10/15/18 72 16 95 21 09:34 10/15/18 98.1 118/61 Room Air 07:30 (80) Intake and Output 10/14/18 10/14/18 10/15/18 1515:00 23:00 07:00 IntakeIntake Total 1250 ml OutputOutput Total 750 ml BalanceBalance 500 ml Medications Medication Current Medications Non-Formulary Medication 2 ea BID INH Last administered on 10/15/18at 09:23; Admin Dose 2 EA; Start 10/05/18 at 22:11 Non-Formulary Medication 2 ea BID PRN INH WHEEZING AND SOB; Start 10/05/18 at 22:11 Nicotine (Nicoderm 14 Mg/ 24hr) 1 patch DAILY TRANSDERM Last administered on 10/15/18at 09:23; Admin Dose 1 PATCH; Start 10/05/18 at 22:11 Pantoprazole (Protonix Tab) 40 mg BID@06,18 PO Last administered on 10/15/18at 06:20; Admin Dose 40 MG; Start 10/05/18 at 22:11 Aspirin (Aspirin) 81 mg DAILY PO Last administered on 10/15/18 09:39; Admin Dose 81 MG; Start 10/05/18 at 22:11 Lactulose (Enulose) 20 gm DAILY PRN PO CONSTIPATION; Start 10/05/18 at 22:30 Acetaminophen (Tylenol Tab) 650 mg Q4H PRN PO MILD PAIN(1-3)OR ELEVATED TEMP; Start 10/05/18 at 23:00 Albuterol (Proventil 0.083% (Neb)) 2.5 mg TID RESP THERAPY HHN Last administered on 10/15/18 09:33; Admin Dose 2.5 MG; Start 10/05/18 at 23:00 Amlodipine Besylate (Norvasc) 5 mg BID PO Last administered on 10/15/18 09:24; Admin Dose 5 MG; Start 10/05/18 at 23:00 Bisacodyl (Dulcolax) 10 mg DAILY PRN PO CONSTIPATION; Start 10/05/18 at 23:30 Calcium Carbonate (Tums) 500 mg Q4H PRN PO HEARTBURN Last administered on 10/11/18 22:03; Admin Dose 500 MG; Start 10/05/18 at 23:30 Docusate Sodium (Colace) 100 mg BID PO Last administered on 10/15/18 09:24; Admin Dose 100 MG; Start 10/05/18 at 23:01 Guaifenesin (Mucinex) 600 mg BID PO Last administered on 10/14/18 20:32; Admin Dose 600 MG; Start 10/05/18 at 23:02 Magnesium Hydroxide (Milk Of Mag) 30 ml BID PRN PO CONSTIPATION Last administered on 10/14/18 17:43; Admin Dose 30 ML; Start 10/05/18 at 23:30 Metoprolol Tartrate (Lopressor) 25 mg BID PO Last administered on 10/15/18 09:25; Admin Dose 25 MG; Start 10/05/18 at 23:02 Senna (Senokot) 1 tab HS PO Last administered on 10/14/18 20:32; Admin Dose 1 TAB; Start 10/05/18 at 23:04 Zolpidem Tartrate (Ambien) 5 mg HS MAY REPEAT X 1 PRN PO INSOMNIA Last administered on 10/15/18 01:08; Admin Dose 5 MG; Start 10/05/18 at 23:05 Hydrocortisone (Hydrocortisone 1% Cr) 1 applic TID TOP Last administered on 10/15/18 09:32; Admin Dose 1 APPLIC; Start 10/06/18 at 09:00 Diphenhydramine HCl (Benadryl) 25 mg Q6H PRN PO ITCHING Last administered on 10/11/18 22:04; Admin Dose 25 MG; Start 10/06/18 at 04:30 Tramadol HCl (Ultram) 50 mg Q4H PRN PO BREAKTHROUGH PAIN Last administered on 10/14/18 11:53; Admin Dose 50 MG; Start 10/07/18 at 10:10 Tramadol HCl (Ultram) 100 mg Q4H PRN PO MODERATE PAIN LEVEL 4-6 Last administered on 10/15/18 09:42; Admin Dose 100 MG; Start 10/07/18 at 10:30 Guaifenesin/ Dextromethorphan (Robitussin Dm Liquid Cup) 10 ml Q6H PRN PO COUGH; Start 10/08/18 at 04:00 Miscellaneous Information [facility] This patient sheikh... PRN PRN XX WOUND CARE; Start 10/08/18 at 04:30 Ondansetron HCl (Zofran Inj) 4 mg Q6H PRN IV NAUSEA AND/OR VOMITING; Start 10/11/18 at 14:30 Ondansetron HCl (Zofran Odt) 4 mg Q6H PRN ODT NAUSEA AND/OR VOMITING Last administered on 10/15/18 06:23; Admin Dose 4 MG; Start 10/11/18 at 14:30 Oxycodone HCl (Roxicodone) 5 mg Q4 PRN PO SEVERE PAIN LEVEL 7-10; Start 10/13/18 at 22:00 DANUTA ARAUJO October 15, 2018 10:24
--- NOTE | 2018-10-15 11:43 | CONS ---
Consultation Date/Type/Reason Admit Date/Time Oct 05, 2018 at 21:11 Initial Consult Date Type of Consult Cardiology Requesting Provider: TONEY DEL CID MD Date/Time of Note DATE: 10/15/18 TIME: 11:43 24 HR Interval Summary Free Text/Dictation Pt in therapy now - VS reviewed. Exam/Review of Systems Vital Signs Vitals Vital Signs Date Temp Pulse Resp B/P (MAP) Pulse Ox O2 O2 Flow FiO2 Time Delivery Rate 10/15/18 72 16 95 21 09:34 10/15/18 98.1 118/61 Room Air 07:30 (80) Intake and Output 10/14/18 10/14/18 10/15/18 1515:00 23:00 07:00 IntakeIntake Total 1250 ml OutputOutput Total 750 ml BalanceBalance 500 ml Medications Medications Current Medications Non-Formulary Medication 2 ea BID INH Last administered on 10/15/18 09:23; Admin Dose 2 EA; Start 10/05/18 at 22:11 Non-Formulary Medication 2 ea BID PRN INH WHEEZING AND SOB; Start 10/05/18 at 22:11 Nicotine (Nicoderm 14 Mg/ 24hr) 1 patch DAILY TRANSDERM Last administered on 10/15/18 09:23; Admin Dose 1 PATCH; Start 10/05/18 at 22:11 Pantoprazole (Protonix Tab) 40 mg BID@06,18 PO Last administered on 10/15/18 06:20; Admin Dose 40 MG; Start 10/05/18 at 22:11 Aspirin (Aspirin) 81 mg DAILY PO Last administered on 10/15/18at 09:39; Admin Dose 81 MG; Start 10/05/18 at 22:11 Lactulose (Enulose) 20 gm DAILY PRN PO CONSTIPATION Last administered on 10/15/18 11:18; Admin Dose 20 GM; Start 10/05/18 at 22:30 Acetaminophen (Tylenol Tab) 650 mg Q4H PRN PO MILD PAIN(1-3)OR ELEVATED TEMP; Start 10/05/18 at 23:00 Albuterol (Proventil 0.083% (Neb)) 2.5 mg TID RESP THERAPY HHN Last administered on 10/15/18 09:33; Admin Dose 2.5 MG; Start 10/05/18 at 23:00 Amlodipine Besylate (Norvasc) 5 mg BID PO Last administered on 10/15/18 09:24; Admin Dose 5 MG; Start 10/05/18 at 23:00 Bisacodyl (Dulcolax) 10 mg DAILY PRN PO CONSTIPATION; Start 10/05/18 at 23:30 Calcium Carbonate (Tums) 500 mg Q4H PRN PO HEARTBURN Last administered on 10/11/18 22:03; Admin Dose 500 MG; Start 10/05/18 at 23:30 Docusate Sodium (Colace) 100 mg BID PO Last administered on 10/15/18 09:24; Admin Dose 100 MG; Start 10/05/18 at 23:01 Guaifenesin (Mucinex) 600 mg BID PO Last administered on 10/14/18 20:32; Admin Dose 600 MG; Start 10/05/18 at 23:02 Magnesium Hydroxide (Milk Of Mag) 30 ml BID PRN PO CONSTIPATION Last administered on 10/14/18 17:43; Admin Dose 30 ML; Start 10/05/18 at 23:30 Metoprolol Tartrate (Lopressor) 25 mg BID PO Last administered on 10/15/18 09:25; Admin Dose 25 MG; Start 10/05/18 at 23:02 Senna (Senokot) 1 tab HS PO Last administered on 10/14/18 20:32; Admin Dose 1 TAB; Start 10/05/18 at 23:04 Zolpidem Tartrate (Ambien) 5 mg HS MAY REPEAT X 1 PRN PO INSOMNIA Last administered on 10/15/18 01:08; Admin Dose 5 MG; Start 10/05/18 at 23:05 Hydrocortisone (Hydrocortisone 1% Cr) 1 applic TID TOP Last administered on 10/15/18 09:32; Admin Dose 1 APPLIC; Start 10/06/18 at 09:00 Diphenhydramine HCl (Benadryl) 25 mg Q6H PRN PO ITCHING Last administered on 10/11/18 22:04; Admin Dose 25 MG; Start 10/06/18 at 04:30 Tramadol HCl (Ultram) 50 mg Q4H PRN PO BREAKTHROUGH PAIN Last administered on 10/14/18 11:53; Admin Dose 50 MG; Start 10/07/18 at 10:10 Tramadol HCl (Ultram) 100 mg Q4H PRN PO MODERATE PAIN LEVEL 4-6 Last administered on 10/15/18at 09:42; Admin Dose 100 MG; Start 10/07/18 at 10:30 Guaifenesin/ Dextromethorphan (Robitussin Dm Liquid Cup) 10 ml Q6H PRN PO COUGH; Start 10/08/18 at 04:00 Miscellaneous Information (Pending [facility] Order For Wound Care) This patient sheikh... PRN PRN XX WOUND CARE; Start 10/08/18 at 04:30 Ondansetron HCl (Zofran Inj) 4 mg Q6H PRN IV NAUSEA AND/OR VOMITING; Start 10/11/18 at 14:30 Ondansetron HCl (Zofran Odt) 4 mg Q6H PRN ODT NAUSEA AND/OR VOMITING Last administered on 10/15/18at 06:23; Admin Dose 4 MG; Start 10/11/18 at 14:30 Oxycodone HCl (Roxicodone) 5 mg Q4 PRN PO SEVERE PAIN LEVEL 7-10; Start 10/13/18 at 22:00 ABI MASON MD October 15, 2018 11:43
[2018-10-15 14:00] VITALS: BP 141/66; PULSE 75; RESP 18
[2018-10-15 19:18] VITALS: BP 120/65; PULSE 72; RESP 18
[2018-10-15] MEDS: SENNA TAB PO SCH (20:10)
[2018-10-16] MEDS: traMADol 50 MG TAB PO PRN ×4 (00:16→20:44)
[2018-10-16] MEDS: ZOLPIDEM 5 MG TAB PO PRN ×2 (00:16→20:44)
[2018-10-16 02:00] VITALS: BP 124/62; PULSE 75; RESP 18
[2018-10-16] MEDS: PANTOPRAZOLE (EC) 40 MG TAB PO SCH ×2 (06:45→17:31)
[2018-10-16 07:00] VITALS: BP 104/57; PULSE 76; RESP 18
--- NOTE | 2018-10-16 07:51 | PN ---
Date/Time of Note Date/Time of Note DATE: 10/16/18 TIME: 07:50 Subjective AWAKE ALERT MILD PAIN Objective Vital Signs Date Temp Pulse Resp B/P (MAP) Pulse Ox O2 O2 Flow FiO2 Time Delivery Rate 10/16/18 97.8 75 18 124/62 93 Room Air 02:00 (82) 10/15/18 21 17:07 Intake and Output 10/15/18 10/15/18 10/16/18 1515:00 23:00 07:00 IntakeIntake Total 200 ml 910 ml 750 ml OutputOutput Total 150 ml BalanceBalance 50 ml 910 ml 750 ml Exam AWAKE ALERT LUNGS CTA COR RRR LUE NVI CLOF XT AND GATI SBA Results/Medications Medications Current Medications Non-Formulary Medication 2 ea BID INH Last administered on 10/15/18 09:23; Admin Dose 2 EA; Start 10/05/18 at 22:11 Non-Formulary Medication 2 ea BID PRN INH WHEEZING AND SOB; Start 10/05/18 at 22:11 Nicotine (Nicoderm 14 Mg/ 24hr) 1 patch DAILY TRANSDERM Last administered on 10/15/18 09:23; Admin Dose 1 PATCH; Start 10/05/18 at 22:11 Pantoprazole (Protonix Tab) 40 mg BID@06,18 PO Last administered on 10/16/18 06:45; Admin Dose 40 MG; Start 10/05/18 at 22:11 Aspirin (Aspirin) 81 mg DAILY PO Last administered on 10/15/18 09:39; Admin Dose 81 MG; Start 10/05/18 at 22:11 Lactulose (Enulose) 20 gm DAILY PRN PO CONSTIPATION Last administered on 10/15/18 11:18; Admin Dose 20 GM; Start 10/05/18 at 22:30 Acetaminophen (Tylenol Tab) 650 mg Q4H PRN PO MILD PAIN(1-3)OR ELEVATED TEMP; Start 10/05/18 at 23:00 Albuterol (Proventil 0.083% (Neb)) 2.5 mg TID RESP THERAPY HHN Last administered on 10/15/18 17:07; Admin Dose 2.5 MG; Start 10/05/18 at 23:00 Amlodipine Besylate (Norvasc) 5 mg BID PO Last administered on 10/15/18 20:11; Admin Dose 5 MG; Start 10/05/18 at 23:00 Bisacodyl (Dulcolax) 10 mg DAILY PRN PO CONSTIPATION; Start 10/05/18 at 23:30 Calcium Carbonate (Tums) 500 mg Q4H PRN PO HEARTBURN Last administered on 10/11/18 22:03; Admin Dose 500 MG; Start 10/05/18 at 23:30 Docusate Sodium (Colace) 100 mg BID PO Last administered on 10/15/18 20:10; Admin Dose 100 MG; Start 10/05/18 at 23:01 Guaifenesin (Mucinex) 600 mg BID PO Last administered on 10/14/18 20:32; Admin Dose 600 MG; Start 10/05/18 at 23:02 Magnesium Hydroxide (Milk Of Mag) 30 ml BID PRN PO CONSTIPATION Last administered on 10/14/18 17:43; Admin Dose 30 ML; Start 10/05/18 at 23:30 Metoprolol Tartrate (Lopressor) 25 mg BID PO Last administered on 10/15/18 20:10; Admin Dose 25 MG; Start 10/05/18 at 23:02 Senna (Senokot) 1 tab HS PO Last administered on 10/15/18 20:10; Admin Dose 1 TAB; Start 10/05/18 at 23:04 Zolpidem Tartrate (Ambien) 5 mg HS MAY REPEAT X 1 PRN PO INSOMNIA Last administered on 10/16/18 00:16; Admin Dose 5 MG; Start 10/05/18 at 23:05 Hydrocortisone (Hydrocortisone 1% Cr) 1 applic TID TOP Last administered on 10/15/18 20:12; Admin Dose 1 APPLIC; Start 10/06/18 at 09:00 Diphenhydramine HCl (Benadryl) 25 mg Q6H PRN PO ITCHING Last administered on 10/11/18 22:04; Admin Dose 25 MG; Start 10/06/18 at 04:30 Tramadol HCl (Ultram) 50 mg Q4H PRN PO BREAKTHROUGH PAIN Last administered on 10/14/18 11:53; Admin Dose 50 MG; Start 10/07/18 at 10:10 Tramadol HCl (Ultram) 100 mg Q4H PRN PO MODERATE PAIN LEVEL 4-6 Last administered on 5/11/19at 00:16; Admin Dose 100 MG; Start 10/07/18 at 10:30 Guaifenesin/ Dextromethorphan (Robitussin Dm Liquid Cup) 10 ml Q6H PRN PO COUGH; Start 10/08/18 at 04:00 Miscellaneous Information (Pending [facility]yl Order For Wound Care) This patient sheikh... PRN PRN XX WOUND CARE; Start 10/08/18 at 04:30 Ondansetron HCl (Zofran Inj) 4 mg Q6H PRN IV NAUSEA AND/OR VOMITING; Start 10/11/18 at 14:30 Ondansetron HCl (Zofran Odt) 4 mg Q6H PRN ODT NAUSEA AND/OR VOMITING Last administered on 10/15/18at 12:29; Admin Dose 4 MG; Start 10/11/18 at 14:30 Oxycodone HCl (Roxicodone) 5 mg Q4 PRN PO SEVERE PAIN LEVEL 7-10; Start 10/13/18 at 22:00 Assessment/Plan Additional Assessment/Plan Rehab- Pulmonary debility secondary to bronchopneumonia and COPD exacerbation; Left proximal humeral fracture, being treated conservatively Continue rehab, overall improving Acute pain syndrome-continue current meds History of adenocarcinoma. Hypertension. Hyperlipidemia. Gastroesophageal reflux disease.ABD XRAY NO OBSTRUCTION Left foot drop- AFO Coronary artery disease with history of stent. JULISSA HUI MD October 16, 2018 07:51
[2018-10-16] MEDS: ALBUTEROL 0.083% (NEB) 2.5 MG/3 ML AMP HHN SCH ×3 (08:44→17:00)
[2018-10-16] MEDS: DOCUSATE SODIUM 100 MG CAP PO SCH ×3 (08:59→21:00)
[2018-10-16] MEDS: ASPIRIN 81 MG TAB PO SCH (08:59)
[2018-10-16] MEDS: AMLODIPINE 5 MG TAB PO SCH ×2 (09:00→20:45)
[2018-10-16] MEDS: GUAIFENESIN LA 600 MG TABSR PO SCH ×3 (09:00→21:00)
[2018-10-16] MEDS: SPECIAL NON-STANDARD MEDICATION INH SCH (09:00)
[2018-10-16] MEDS: METOPROLOL 25 MG TAB PO SCH ×2 (09:00→20:45)
[2018-10-16] MEDS: NICOTINE (14 MG/24 HR) PATCH TRANSDERM SCH (09:00)
[2018-10-16] MEDS: HYDROCORTISONE 1% 28 GM CR TOP SCH ×3 (09:02→20:46)
[2018-10-16] MEDS: BISACODYL (EC) 5 MG TAB PO PRN (09:47)
[2018-10-16] MEDS: ONDANSETRON (ODT) 4 MG TAB ODT PRN (09:51)
[2018-10-16] MEDS ORDERED: FLUTICASONE/VILANTEROL 100-25 INH SCH (13:00)
[2018-10-16 14:00] VITALS: BP 118/59; PULSE 71; RESP 18
[2018-10-16] MEDS ORDERED: BISACODYL 10 MG SUPP PR PRN (14:00)
--- NOTE | 2018-10-16 15:31 | CONS ---
Consult Date/Type/Reason Admit Date/Time Oct 05, 2018 at 21:11 Initial Consult Date Requesting Provider: TONEY DEL CID MD Date/Time of Note DATE: 10/16/18 TIME: 15:30 Subjective No acute events - pt doing well overall - no CP- in good fluid status - compliant with rehab - had showed today - dispo prelim plan for 10/19 ROS: No fever, no chills, no nausea, no vomiting, no diarrhea/constipation - better now Objective Vitals Vital Signs Date Temp Pulse Resp B/P (MAP) Pulse Ox O2 O2 Flow FiO2 Time Delivery Rate 10/16/18 70 17 93 21 15:00 10/16/18 98.1 118/59 Room Air 14:00 (78) Intake and Output 10/15/18 10/15/18 10/16/18 1515:00 23:00 07:00 IntakeIntake Total 200 ml 910 ml 750 ml OutputOutput Total 150 ml BalanceBalance 50 ml 910 ml 750 ml Exam General: WN/WD/NAD, AOx 3 HEENT: Unicetric/atraumatic/EOMI (follow commands) NECK: JVD elevated, no thyromegaly Lymph: no lymphadenopathy HEART: regular with no S3, II/ systolic murmur at apex LUNGS: Coarse sounds ABD: soft, NT, ND, +BS : Intact Neuro: non focal SKIN: chronic changes EXT: trace edema, L arm brace Results/Medications Home Meds Reported Medications Metoprolol Tartrate* (Lopressor*) 25 Mg Tab, 25 MG PO DAILY, #60 TAB 09/30/18 Omeprazole* (Omeprazole*) 10 Mg Capsule.dr, 10 MG PO DAILY, #30 CAP 09/30/18 Medications Current Medications Non-Formulary Medication 2 ea BID PRN INH WHEEZING AND SOB; Start 10/05/18 at 22:11 Nicotine (Nicoderm 14 Mg/ 24hr) 1 patch DAILY TRANSDERM Last administered on 10/16/18at 09:00; Admin Dose 1 PATCH; Start 10/05/18 at 22:11 Pantoprazole (Protonix Tab) 40 mg BID@06,18 PO Last administered on 10/16/18at 06:45; Admin Dose 40 MG; Start 10/05/18 at 22:11 Aspirin (Aspirin) 81 mg DAILY PO Last administered on 10/16/18 08:59; Admin Dose 81 MG; Start 10/05/18 at 22:11 Lactulose (Enulose) 20 gm DAILY PRN PO CONSTIPATION Last administered on 10/15/18 11:18; Admin Dose 20 GM; Start 10/05/18 at 22:30 Acetaminophen (Tylenol Tab) 650 mg Q4H PRN PO MILD PAIN(1-3)OR ELEVATED TEMP; Start 10/05/18 at 23:00 Albuterol (Proventil 0.083% (Neb)) 2.5 mg TID RESP THERAPY HHN Last administer ed on 10/16/18 13:00; Admin Dose 2.5 MG; Start 10/05/18 at 23:00 Amlodipine Besylate (Norvasc) 5 mg BID PO Last administered on 10/15/18 20:11; Admin Dose 5 MG; Start 10/05/18 at 23:00 Bisacodyl (Dulcolax) 10 mg DAILY PRN PO CONSTIPATION Last administered on 10/16/18 09:47; Admin Dose 10 MG; Start 10/05/18 at 23:30 Calcium Carbonate (Tums) 500 mg Q4H PRN PO HEARTBURN Last administered on 10/11/18 22:03; Admin Dose 500 MG; Start 10/05/18 at 23:30 Docusate Sodium (Colace) 100 mg BID PO Last administered on 10/16/18 08:59; Admin Dose 100 MG; Start 10/05/18 at 23:01 Guaifenesin (Mucinex) 600 mg BID PO Last administered on 10/14/18 20:32; Admin Dose 600 MG; Start 10/05/18 at 23:02 Magnesium Hydroxide (Milk Of Mag) 30 ml BID PRN PO CONSTIPATION Last admi nistered on 10/14/18 17:43; Admin Dose 30 ML; Start 10/05/18 at 23:30 Metoprolol Tartrate (Lopressor) 25 mg BID PO Last administered on 10/15/18 20:10; Admin Dose 25 MG; Start 10/05/18 at 23:02 Senna (Senokot) 1 tab HS PO Last administered on 10/15/18 20:10; Admin Dose 1 TAB; Start 10/05/18 at 23:04 Zolpidem Tartrate (Ambien) 5 mg HS MAY REPEAT X 1 PRN PO INSOMNIA Last adminis tered on 10/16/18 00:16; Admin Dose 5 MG; Start 10/05/18 at 23:05 Hydrocortisone (Hydrocortisone 1% Cr) 1 applic TID TOP Last administered on 10/16/18 09:02; Admin Dose 1 APPLIC; Start 10/06/18 at 09:00 Diphenhydramine HCl (Benadryl) 25 mg Q6H PRN PO ITCHING Last administered on 10/11/18 22:04; Admin Dose 25 MG; Start 10/06/18 at 04:30 Tramadol HCl (Ultram) 50 mg Q4H PRN PO BREAKTHROUGH PAIN Last administered on 10/14/18 11:53; Admin Dose 50 MG; Start 10/07/18 at 10:10 Tramadol HCl (Ultram) 100 mg Q4H PRN PO MODERATE PAIN LEVEL 4-6 Last administered on 10/16/18at 13:56; Admin Dose 100 MG; Start 10/07/18 at 10:30 Guaifenesin/ Dextromethorphan (Robitussin Dm Liquid Cup) 10 ml Q6H PRN PO COUGH; Start 10/08/18 at 04:00 Miscellaneous Information (Pending [facility] Order For Wound Care) This patient sheikh... PRN PRN XX WOUND CARE; Start 10/08/18 at 04:30 Ondansetron HCl (Zofran Inj) 4 mg Q6H PRN IV NAUSEA AND/OR VOMITING; Start 10/11/18 at 14:30 Ondansetron HCl (Zofran Odt) 4 mg Q6H PRN ODT NAUSEA AND/OR VOMITING Last administered on 10/16/18 09:51; Admin Dose 4 MG; Start 10/11/18 at 14:30 Oxycodone HCl (Roxicodone) 5 mg Q4 PRN PO SEVERE PAIN LEVEL 7-10; Start 10/13/18 at 22:00 Fluticasone/ Vilanterol (Breo Ellipta 100-25 Mcg Inh) 1 inh DAILY INH Last administered on 10/16/18at 13:56; Admin Dose 1 INH; Start 10/16/18 at 13:00 Bisacodyl (Dulcolax Supp) 10 mg DAILY PRN NE CONSTIPATION Last administered on 10/16/18at 13:56; Admin Dose 10 MG; Start 10/16/18 at 14:00 Assessment/Plan Hospital Course (Demo Recall) 1.H/O stent-per patient last placed 06/2016-took plavix x 6 months. self d/c'd asa due to easy bruising. Tolerating now. NL EF by echo this admit - doing well, compliant with rehab - tolerating well - no CP noted 2.s/p fall-? mechanical - no arrhthmia noted - no evidence of arrhythmia 3.HTN-somewhat labile but overall reasonable - stable overall. 4. Humeral fx-decresaed swelling/some pain - better now - con't rehab 5.H/O [place] 2006? - no CP - med rX advised 6.tobacco dependence 7. N/V day prior,m now resolved. ABI MASON MD October 16, 2018 15:31
--- NOTE | 2018-10-16 16:14 | PN ---
Date/Time of Note Date/Time of Note DATE: 10/16/18 TIME: 16:14 Assessment/Plan VTE Prophylaxis Risk score (from Nsg)>0 risk: 3 SCD applied (from Nsg): No Lines/Catheters IV Catheter Type (from Nrsg): Saline Lock Assessment/Plan Assessment/Plan -Pulmonary Debility secondary to broncho-pneumonia, and COPD exacerbation. -Left proximal humeral fracture, status post evaluation by Dr. Burleson and orthopedic surgery consultation with recommendation to continue immobilization with sling and no weight bearing. -Coronary artery disease, history of stent placement in 2017. Continue aspirin. Dr. Strickland is following in cardiology consultation. 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 Butts in oncology consultation with recommendation to follow-up with CT scan of the chest in 3 months. Patient follows with Dr. Mackey, oncologist as an outpatient. Patient had a history of pneumonia requiring chest tube in March 2018. -GERD -Former smoker Further recommendations based on clinical course. Plan of care discussed with Dr. Awan. Subjective 24 Hr Interval Summary Gastrointestinal: nausea Musculoskeletal: bone/joint pain, restricted range of motion Exam/Review of Systems Exam Vitals Vital Signs Date Temp Pulse Resp B/P (MAP) Pulse Ox O2 O2 Flow FiO2 Time Delivery Rate 10/16/18 70 17 93 21 15:00 10/16/18 98.1 118/59 Room Air 14:00 (78) Intake and Output 10/15/18 10/15/18 10/16/18 1515:00 23:00 07:00 IntakeIntake Total 200 ml 910 ml 750 ml OutputOutput Total 150 ml BalanceBalance 50 ml 910 ml 750 ml Medications Medication Current Medications Non-Formulary Medication 2 ea BID PRN INH WHEEZING AND SOB; Start 10/05/18 at 22:11 Nicotine (Nicoderm 14 Mg/ 24hr) 1 patch DAILY TRANSDERM Last administered on 10/16/18at 09:00; Admin Dose 1 PATCH; Start 10/05/18 at 22:11 Pantoprazole (Protonix Tab) 40 mg BID@06,18 PO Last administered on 10/16/18at 06:45; Admin Dose 40 MG; Start 10/05/18 at 22:11 Aspirin (Aspirin) 81 mg DAILY PO Last administered on 10/16/18 08:59; Admin Dose 81 MG; Start 10/05/18 at 22:11 Lactulose (Enulose) 20 gm DAILY PRN PO CONSTIPATION Last administered on 10/15/18 11:18; Admin Dose 20 GM; Start 10/05/18 at 22:30 Acetaminophen (Tylenol Tab) 650 mg Q4H PRN PO MILD PAIN(1-3)OR ELEVATED TEMP; Start 10/05/18 at 23:00 Albuterol (Proventil 0.083% (Neb)) 2.5 mg TID RESP THERAPY HHN Last admini stered on 10/16/18 13:00; Admin Dose 2.5 MG; Start 10/05/18 at 23:00 Amlodipine Besylate (Norvasc) 5 mg BID PO Last administered on 10/15/18 20:11; Admin Dose 5 MG; Start 10/05/18 at 23:00 Bisacodyl (Dulcolax) 10 mg DAILY PRN PO CONSTIPATION Last administered on 10/16/18 09:47; Admin Dose 10 MG; Start 10/05/18 at 23:30 Calcium Carbonate (Tums) 500 mg Q4H PRN PO HEARTBURN Last administered on 10/11/18 22:03; Admin Dose 500 MG; Start 10/05/18 at 23:30 Docusate Sodium (Colace) 100 mg BID PO Last administered on 10/16/18 08:59; Admin Dose 100 MG; Start 10/05/18 at 23:01 Guaifenesin (Mucinex) 600 mg BID PO Last administered on 10/14/18 20:32; Admin Dose 600 MG; Start 10/05/18 at 23:02 Magnesium Hydroxide (Milk Of Mag) 30 ml BID PRN PO CONSTIPATION Last administered on 10/14/18 17:43; Admin Dose 30 ML; Start 10/05/18 at 23:30 Metoprolol Tartrate (Lopressor) 25 mg BID PO Last administered on 10/15/18 20:10; Admin Dose 25 MG; Start 10/05/18 at 23:02 Senna (Senokot) 1 tab HS PO Last administered on 10/15/18 20:10; Admin Dose 1 TAB; Start 10/05/18 at 23:04 Zolpidem Tartrate (Ambien) 5 mg HS MAY REPEAT X 1 PRN PO INSOMNIA Last adm inistered on 10/16/18 00:16; Admin Dose 5 MG; Start 10/05/18 at 23:05 Hydrocortisone (Hydrocortisone 1% Cr) 1 applic TID TOP Last administered on 10/16/18 09:02; Admin Dose 1 APPLIC; Start 10/06/18 at 09:00 Diphenhydramine HCl (Benadryl) 25 mg Q6H PRN PO ITCHING Last administered on 10/11/18 22:04; Admin Dose 25 MG; Start 10/06/18 at 04:30 Tramadol HCl (Ultram) 50 mg Q4H PRN PO BREAKTHROUGH PAIN Last administered on 10/14/18 11:53; Admin Dose 50 MG; Start 10/07/18 at 10:10 Tramadol HCl (Ultram) 100 mg Q4H PRN PO MODERATE PAIN LEVEL 4-6 Last administered on 10/16/18 13:56; Admin Dose 100 MG; Start 10/07/18 at 10:30 Guaifenesin/ Dextromethorphan (Robitussin Dm Liquid Cup) 10 ml Q6H PRN PO COUGH; Start 10/08/18 at 04:00 Miscellaneous Information (Pending [facility] Order For Wound Care) This patient sheikh... PRN PRN XX WOUND CARE; Start 10/08/18 at 04:30 Ondansetron HCl (Zofran Inj) 4 mg Q6H PRN IV NAUSEA AND/OR VOMITING; Start 10/11/18 at 14:30 Ondansetron HCl (Zofran Odt) 4 mg Q6H PRN ODT NAUSEA AND/OR VOMITING Last administered on 10/16/18 09:51; Admin Dose 4 MG; Start 10/11/18 at 14:30 Oxycodone HCl (Roxicodone) 5 mg Q4 PRN PO SEVERE PAIN LEVEL 7-10; Start 10/13/18 at 22:00 Fluticasone/ Vilanterol (Breo Ellipta 100-25 Mcg Inh) 1 inh DAILY INH Last administered on 10/16/18 13:56; Admin Dose 1 INH; Start 10/16/18 at 13:00 Bisacodyl (Dulcolax Supp) 10 mg DAILY PRN [place] CONSTIPATION Last administered on 5/11/19at 13:56; Admin Dose 10 MG; Start 10/16/18 at 14:00 Metoclopramide HCl (Reglan) 5 mg Q6H PRN PO NAUSEA AND/OR VOMITING; Start 10/16/18 at 16:30 DANUTA ARAUJO October 16, 2018 16:14
[2018-10-16] MEDS ORDERED: METOCLOPRAMIDE 5 MG TAB PO PRN (16:30)
[2018-10-16 19:20] VITALS: BP 138/70; PULSE 75; RESP 18
[2018-10-16] MEDS: SENNA TAB PO SCH (20:45)
[2018-10-17 02:00] VITALS: BP 125/65; PULSE 72; RESP 18
[2018-10-17] MEDS: traMADol 50 MG TAB PO PRN ×4 (04:08→19:55)
[2018-10-17] MEDS: PANTOPRAZOLE (EC) 40 MG TAB PO SCH ×2 (06:22→17:49)
[2018-10-17 07:00] VITALS: BP 130/63; PULSE 68; RESP 18
[2018-10-17] MEDS: ALBUTEROL 0.083% (NEB) 2.5 MG/3 ML AMP HHN SCH ×3 (07:51→16:33)
[2018-10-17] MEDS: DOCUSATE SODIUM 100 MG CAP PO SCH ×2 (08:07→19:55)
[2018-10-17] MEDS: ASPIRIN 81 MG TAB PO SCH (08:07)
[2018-10-17] MEDS: AMLODIPINE 5 MG TAB PO SCH ×2 (08:11→19:56)
[2018-10-17] MEDS: METOPROLOL 25 MG TAB PO SCH ×2 (08:12→19:56)
[2018-10-17] MEDS: NICOTINE (14 MG/24 HR) PATCH TRANSDERM SCH (08:13)
[2018-10-17] MEDS: GUAIFENESIN LA 600 MG TABSR PO SCH ×2 (08:13→19:56)
[2018-10-17] MEDS: HYDROCORTISONE 1% 28 GM CR TOP SCH ×3 (08:13→19:57)
[2018-10-17] MEDS ORDERED: METOCLOPRAMIDE 5 MG TAB PO PRN (10:00)
[2018-10-17 14:00] VITALS: BP 128/62; PULSE 77; RESP 18
[2018-10-17] MEDS ORDERED: FLUTICASONE/VILANTEROL 100-25 INH SCH (18:00)
[2018-10-17] MEDS: SENNA TAB PO SCH (19:55)
[2018-10-17] MEDS: ZOLPIDEM 5 MG TAB PO PRN (19:57)
[2018-10-17 20:00] VITALS: BP 104/61; PULSE 75; RESP 18
[2018-10-17] MEDS: FLUTICASONE/VILANTEROL 100-25 INH SCH (20:03)
[2018-10-17] MEDS: CALCIUM CARBONATE 500 MG CHEW TAB PO PRN (21:41)
[2018-10-18] MEDS: traMADol 50 MG TAB PO PRN ×4 (00:17→19:58)
[2018-10-18 02:00] VITALS: BP 124/61; PULSE 71; RESP 18
[2018-10-18] MEDS: PANTOPRAZOLE (EC) 40 MG TAB PO SCH ×2 (06:34→17:44)
[2018-10-18 07:00] VITALS: BP 114/60; PULSE 75; RESP 18
[2018-10-18] MEDS: ALBUTEROL 0.083% (NEB) 2.5 MG/3 ML AMP HHN SCH ×3 (08:11→18:05)
[2018-10-18] MEDS: ASPIRIN 81 MG TAB PO SCH (08:56)
[2018-10-18] MEDS: NICOTINE (14 MG/24 HR) PATCH TRANSDERM SCH (08:56)
[2018-10-18] MEDS: DOCUSATE SODIUM 100 MG CAP PO SCH ×2 (08:56→19:56)
[2018-10-18] MEDS: AMLODIPINE 5 MG TAB PO SCH ×2 (08:57→19:57)
[2018-10-18] MEDS: METOPROLOL 25 MG TAB PO SCH ×2 (08:58→19:57)
[2018-10-18] MEDS: GUAIFENESIN LA 600 MG TABSR PO SCH ×2 (09:00→21:00)
[2018-10-18] MEDS: HYDROCORTISONE 1% 28 GM CR TOP SCH ×3 (09:04→20:03)
--- NOTE | 2018-10-18 09:35 | CONS ---
Consultation Date/Type/Reason Admit Date/Time Oct 05, 2018 at 21:11 Initial Consult Date Type of Consult Cardiology Requesting Provider: TONEY DEL CID MD Date/Time of Note DATE: 10/18/18 TIME: 09:35 24 HR Interval Summary Free Text/Dictation In shower now, VS reviewed - stable. Exam/Review of Systems Vital Signs Vitals Vital Signs Date Temp Pulse Resp B/P (MAP) Pulse Ox O2 O2 Flow FiO2 Time Delivery Rate 10/18/18 70 18 93 21 08:12 10/18/18 97.7 114/60 Room Air 07:00 (78) Intake and Output 10/17/18 10/17/18 10/18/18 1515:00 23:00 07:00 IntakeIntake Total 700 ml 1200 ml 200 ml OutputOutput Total 600 ml 300 ml BalanceBalance 700 ml 600 ml -100 ml Labs Result Diagram: 10/17/18 0641 10/17/18 0641 Medications Medications Current Medications Non-Formulary Medication 2 ea BID PRN INH WHEEZING AND SOB; Start 10/05/18 at 22:11 Nicotine (Nicoderm 14 Mg/ 24hr) 1 patch DAILY TRANSDERM Last administered on 10/18/18at 08:56; Admin Dose 1 PATCH; Start 10/05/18 at 22:11 Pantoprazole (Protonix Tab) 40 mg BID@06,18 PO Last administered on 10/18/18at 06:34; Admin Dose 40 MG; Start 10/05/18 at 22:11 Aspirin (Aspirin) 81 mg DAILY PO Last administered on 10/18/18at 08:56; Admin Dose 81 MG; Start 10/05/18 at 22:11 Lactulose (Enulose) 20 gm DAILY PRN PO CONSTIPATION Last administered on 10/15/18at 11:18; Admin Dose 20 GM; Start 10/05/18 at 22:30 Acetaminophen (Tylenol Tab) 650 mg Q4H PRN PO MILD PAIN(1-3)OR ELEVATED TEMP; Start 10/05/18 at 23:00 Albuterol (Proventil 0.083% (Neb)) 2.5 mg TID RESP THERAPY HHN Last administered on 10/17/18at 12:50; Admin Dose 2.5 MG; Start 10/05/18 at 23:00 Amlodipine Besylate (Norvasc) 5 mg BID PO Last administered on 10/18/18 08:57; Admin Dose 5 MG; Start 10/05/18 at 23:00 Bisacodyl (Dulcolax) 10 mg DAILY PRN PO CONSTIPATION Last administered on 10/16/18 09:47; Admin Dose 10 MG; Start 10/05/18 at 23:30 Calcium Carbonate (Tums) 500 mg Q4H PRN PO HEARTBURN Last administered on 10/17/18 21:41; Admin Dose 500 MG; Start 10/05/18 at 23:30 Docusate Sodium (Colace) 100 mg BID PO Last administered on 10/18/18 08:56; Ad min Dose 100 MG; Start 10/05/18 at 23:01 Guaifenesin (Mucinex) 600 mg BID PO Last administered on 10/14/18 20:32; Admin Dose 600 MG; Start 10/05/18 at 23:02 Magnesium Hydroxide (Milk Of Mag) 30 ml BID PRN PO CONSTIPATION Last administered on 10/14/18 17:43; Admin Dose 30 ML; Start 10/05/18 at 23:30 Metoprolol Tartrate (Lopressor) 25 mg BID PO Last administered on 10/18/18 08:58; Admin Dose 25 MG; Start 10/05/18 at 23:02 Senna (Senokot) 1 tab HS PO Last administered on 10/17/18 19:55; Admin Dose 1 TAB; Start 10/05/18 at 23:04 Zolpidem Tartrate (Ambien) 5 mg HS MAY REPEAT X 1 PRN PO INSOMNIA Last administered on 10/17/18 19:57; Admin Dose 5 MG; Start 10/05/18 at 23:05 Hydrocortisone (Hydrocortisone 1% Cr) 1 applic TID TOP Last administered on 10/18/18 09:04; Admin Dose 1 APPLIC; Start 10/06/18 at 09:00 Diphenhydramine HCl (Benadryl) 25 mg Q6H PRN PO ITCHING Last administered on 22:04; Admin Dose 25 MG; Start 10/06/18 at 04:30 Tramadol HCl (Ultram) 50 mg Q4H PRN PO BREAKTHROUGH PAIN Last administered on 10/14/18 11:53; Admin Dose 50 MG; Start 10/07/18 at 10:10 Tramadol HCl (Ultram) 100 mg Q4H PRN PO MODERATE PAIN LEVEL 4-6 Last administered on 10/18/18at 08:59; Admin Dose 100 MG; Start 10/07/18 at 10:30 Guaifenesin/ Dextromethorphan (Robitussin Dm Liquid Cup) 10 ml Q6H PRN PO COUGH; Start 10/08/18 at 04:00 [facility]isc[facility] This patient sheikh... PRN PRN XX WOUND CARE; Start 10/08/18 at 04:30 Ondansetron HCl (Zofran Inj) 4 mg Q6H PRN IV NAUSEA AND/OR VOMITING; Start 10/11/18 at 14:30 Ondansetron HCl (Zofran Odt) 4 mg Q6H PRN ODT NAUSEA AND/OR VOMITING Last administered on 10/16/18at 09:51; Admin Dose 4 MG; Start 10/11/18 at 14:30 Oxycodone HCl (Roxicodone) 5 mg Q4 PRN PO SEVERE PAIN LEVEL 7-10; Start 10/13/18 at 22:00 Bisacodyl (Dulcolax Supp) 10 mg DAILY PRN [place] CONSTIPATION Last administered on 10/16/18at 13:56; Admin Dose 10 MG; Start 10/16/18 at 14:00 Fluticasone/ Vilanterol (Breo Ellipta 100-25 Mcg Inh) 1 inh QPM INH ; Start 10/17/18 at 21:00 Metoclopramide HCl (Reglan) 5 mg Q6H PRN PO NAUSEA AND/OR VOMITING Last administered on 10/17/18at 17:51; Admin Dose 5 MG; Start 10/17/18 at 10:00 ABI MASON MD October 18, 2018 09:35
--- NOTE | 2018-10-18 13:30 | PN ---
Date/Time of Note Date/Time of Note DATE: 10/18/18 TIME: 13:29 Objective Vital Signs Date Temp Pulse Resp B/P (MAP) Pulse Ox O2 O2 Flow FiO2 Time Delivery Rate 10/18/18 70 18 93 21 08:12 10/18/18 97.7 114/60 Room Air 07:00 (78) Intake and Output 10/17/18 10/17/18 10/18/18 1515:00 23:00 07:00 IntakeIntake Total 700 ml 1200 ml 200 ml OutputOutput Total 600 ml 300 ml BalanceBalance 700 ml 600 ml -100 ml Exam INTERDISCIPLINARY TEAM CONFERENCE Attended by PT, OT, ST, Air Traffic Control Manager, Social Work, Rehabilitation Nursing, Rug Cleaning Supervisor and Bottle BlowerAdapted Physical Education Specialist Exam: Pulm- cta Abd-soft BOWEL- Cont BLADDER-Cont SKIN- intact OT- DRESSING-sba/min BATHING-sba TOILETING-sba- PT- BED MOBILITY-sba TRANSFERS-sba AMBULATION-sba 75 feet A/P- Interdisciplinary team conference held today. Please see interdisciplinary sheet. Working toward d.c. on 10/19 with post discharge follow up of physical therapy, occupational therapy. Results/Medications Result Diagram: 10/17/1864010/17/18640 Medications Current Medications Non-Formulary Medication 2 ea BID PRN INH WHEEZING AND SOB; Start 10/05/18 at 22:11 Nicotine (Nicoderm 14 Mg/ 24hr) 1 patch DAILY TRANSDERM Last administered on at 08:56; Admin Dose 1 PATCH; Start 10/05/18 at 22:11 Pantoprazole (Protonix Tab) 40 mg BID@06,18 PO Last administered on 10/18/18at 06:34; Admin Dose 40 MG; Start 10/05/18 at 22:11 Aspirin (Aspirin) 81 mg DAILY PO Last administered on 10/18/18at 08:56; Admin Dose 81 MG; Start 10/05/18 at 22:11 Lactulose (Enulose) 20 gm DAILY PRN PO CONSTIPATION Last administered on 10/15/18at 11:18; Admin Dose 20 GM; Start 10/05/18 at 22:30 Acetaminophen (Tylenol Tab) 650 mg Q4H PRN PO MILD PAIN(1-3)OR ELEVATED TEMP; Start 10/05/18 at 23:00 Albuterol (Proventil 0.083% (Neb)) 2.5 mg TID RESP THERAPY HHN Last administered on 10/18/18 13:27; Admin Dose 2.5 MG; Start 10/05/18 at 23:00 Amlodipine Besylate (Norvasc) 5 mg BID PO Last administered on 10/18/18 08:57; Admin Dose 5 MG; Start 10/05/18 at 23:00 Bisacodyl (Dulcolax) 10 mg DAILY PRN PO CONSTIPATION Last administered on 10/16/18 09:47; Admin Dose 10 MG; Start 10/05/18 at 23:30 Calcium Carbonate (Tums) 500 mg Q4H PRN PO HEARTBURN Last administered on 10/17/18 21:41; Admin Dose 500 MG; Start 10/05/18 at 23:30 Docusate Sodium (Colace) 100 mg BID PO Last administered on 10/18/18 08:56; Admin Dose 100 MG; Start 10/05/18 at 23:01 Guaifenesin (Mucinex) 600 mg BID PO Last administered on 10/14/18 20:32; Admin Dose 600 MG; Start 10/05/18 at 23:02 Magnesium Hydroxide (Milk Of Mag) 30 ml BID PRN PO CONSTIPATION Last administered on 10/14/18 17:43; Admin Dose 30 ML; Start 10/05/18 at 23:30 Metoprolol Tartrate (Lopressor) 25 mg BID PO Last administered on 10/18/18 08:58; Admin Dose 25 MG; Start 10/05/18 at 23:02 Senna (Senokot) 1 tab HS PO Last administered on 10/17/18 19:55; Admin Dose 1 TAB; Start 10/05/18 at 23:04 Zolpidem Tartrate (Ambien) 5 mg HS MAY REPEAT X 1 PRN PO INSOMNIA Last administered on 10/17/18 19:57; Admin Dose 5 MG; Start 10/05/18 at 23:05 Hydrocortisone (Hydrocortisone 1% Cr) 1 applic TID TOP Last administered on 10/18/18 09:04; Admin Dose 1 APPLIC; Start 10/06/18 at 09:00 Diphenhydramine HCl (Benadryl) 25 mg Q6H PRN PO ITCHING Last administered on 10/11/18 22:04; Admin Dose 25 MG; Start 10/06/18 at 04:30 Tramadol HCl (Ultram) 50 mg Q4H PRN PO BREAKTHROUGH PAIN Last administered on 10/14/18 11:53; Admin Dose 50 MG; Start 10/07/18 at 10:10 Tramadol HCl (Ultram) 100 mg Q4H PRN PO MODERATE PAIN LEVEL 4-6 Last administered on 10/18/18 08:59; Admin Dose 100 MG; Start 10/07/18 at 10:30 Guaifenesin/ Dextromethorphan (Robitussin Dm Liquid Cup) 10 ml Q6H PRN PO COUGH; Start 10/08/18 at 04:00 Miscellaneous Information (Pending [facility] Order For Wound Care) This patient sheikh... PRN PRN XX WOUND CARE; Start 10/08/18 at 04:30 Ondansetron HCl (Zofran Inj) 4 mg Q6H PRN IV NAUSEA AND/OR VOMITING; Start 10/11/18 at 14:30 Ondansetron HCl (Zofran Odt) 4 mg Q6H PRN ODT NAUSEA AND/OR VOMITING Last admin istered on 10/16/18 09:51; Admin Dose 4 MG; Start 10/11/18 at 14:30 Oxycodone HCl (Roxicodone) 5 mg Q4 PRN PO SEVERE PAIN LEVEL 7-10; Start 10/13/18 at 22:00 Bisacodyl (Dulcolax Supp) 10 mg DAILY PRN [place] CONSTIPATION Last administered on 10/16/18 13:56; Admin Dose 10 MG; Start 10/16/18 at 14:00 Fluticasone/ Vilanterol (Breo Ellipta 100-25 Mcg Inh) 1 inh QPM INH ; Start 10/17/18 at 21:00 Metoclopramide HCl (Reglan) 5 mg Q6H PRN PO NAUSEA AND/OR VOMITING Last administered on 10/17/18 17:51; Admin Dose 5 MG; Start 10/17/18 at 10:00 NUHA HUI MD October 18, 2018 13:30
[2018-10-18 14:00] VITALS: BP 127/64; PULSE 74; RESP 18
--- NOTE | 2018-10-18 17:15 | PN ---
Date/Time of Note Date/Time of Note DATE: 10/18/18 TIME: 17:14 Assessment/Plan VTE Prophylaxis Risk score (from Nsg)>0 risk: 3 SCD applied (from Nsg): Yes Pharmacological prophylaxis: other Lines/Catheters IV Catheter Type (from Nrsg): Saline Lock Assessment/Plan Hospital Course Pt is sitting in wheelchair, eating dinner, comfortable on RA, pt still has pain but states that its manageable with current pain medication. Assessment/Plan -Pulmonary Debility secondary to broncho-pneumonia, and COPD exacerbation. -Left proximal humeral fracture, status post evaluation by Dr. Burleson and o rthopedic surgery consultation with recommendation to continue immobilization with sling and no weight bearing. -Coronary artery disease, history of stent placement in 2017. Continue aspirin. Dr. Strickland is following in cardiology consultation. 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 Butts in oncology consultation with recommendation to follow-up with CT scan of the chest in 3 months. Patient follows with Dr. Mackey, oncologist as an outpatient. Patient had a history of pneumonia requiring chest tube in March 2018. -GERD -Former smoker Further recommendations based on clinical course. Plan of care discussed with Dr. Awan. Result Diagram: 10/17/18 0641 10/17/18 0641 Exam/Review of Systems Exam Vitals Vital Signs Date Temp Pulse Resp B/P (MAP) Pulse Ox O2 O2 Flow FiO2 Time Delivery Rate 10/18/18 97.8 74 18 127/64 96 Room Air 14:00 (85) 10/18/18 21 13:27 Intake and Output 10/17/18 10/17/18 10/18/18 1515:00 23:00 07:00 IntakeIntake Total 700 ml 1200 ml 200 ml OutputOutput Total 600 ml 300 ml BalanceBalance 700 ml 600 ml -100 ml Exam Constitutional: alert, oriented Respiratory: clear to auscultation Cardiovascular: nl pulses Gastrointestinal: soft, non-tender Extremities: normal pulses, other (Left upper extremity immobilized with sling) Neurological: nl mental status Medications Medication Current Medications Non-Formulary Medication 2 ea BID PRN INH WHEEZING AND SOB; Start 10/05/18 at 22:11 Nicotine (Nicoderm 14 Mg/ 24hr) 1 patch DAILY TRANSDERM Last administered on 10/18/18 08:56; Admin Dose 1 PATCH; Start 10/05/18 at 22:11 Pantoprazole (Protonix Tab) 40 mg BID@06,18 PO Last administered on 10/18/18 06:34; Admin Dose 40 MG; Start 10/05/18 at 22:11 Aspirin (Aspirin) 81 mg DAILY PO Last administered on 10/18/18 08:56; Admin Dose 81 MG; Start 10/05/18 at 22:11 Lactulose (Enulose) 20 gm DAILY PRN PO CONSTIPATION Last administered on 10/15/18 11:18; Admin Dose 20 GM; Start 10/05/18 at 22:30 Acetaminophen (Tylenol Tab) 650 mg Q4H PRN PO MILD PAIN(1-3)OR ELEVATED TEMP; Start 10/05/18 at 23:00 Albuterol (Proventil 0.083% (Neb)) 2.5 mg TID RESP THERAPY HHN Last administer ed on 10/18/18 13:27; Admin Dose 2.5 MG; Start 10/05/18 at 23:00 Amlodipine Besylate (Norvasc) 5 mg BID PO Last administered on 10/18/18 08:57; Admin Dose 5 MG; Start 10/05/18 at 23:00 Bisacodyl (Dulcolax) 10 mg DAILY PRN PO CONSTIPATION Last administered on 10/16/18 09:47; Admin Dose 10 MG; Start 10/05/18 at 23:30 Calcium Carbonate (Tums) 500 mg Q4H PRN PO HEARTBURN Last administered on 10/06 21:41; Admin Dose 500 MG; Start 10/05/18 at 23:30 Docusate Sodium (Colace) 100 mg BID PO Last administered on 10/18/18 08:56; Admin Dose 100 MG; Start 10/05/18 at 23:01 Guaifenesin (Mucinex) 600 mg BID PO Last administered on 10/14/18 20:32; Admin Dose 600 MG; Start 10/05/18 at 23:02 Magnesium Hydroxide (Milk Of Mag) 30 ml BID PRN PO CONSTIPATION Last administered on 10/14/18 17:43; Admin Dose 30 ML; Start 10/05/18 at 23:30 Metoprolol Tartrate (Lopressor) 25 mg BID PO Last administered on 10/18/18 08:58; Admin Dose 25 MG; Start 10/05/18 at 23:02 Senna (Senokot) 1 tab HS PO Last administered on 10/17/18 19:55; Admin Dose 1 TAB; Start 10/05/18 at 23:04 Zolpidem Tartrate (Ambien) 5 mg HS MAY REPEAT X 1 PRN PO INSOMNIA Last administered on 10/17/18 19:57; Admin Dose 5 MG; Start 10/05/18 at 23:05 Hydrocortisone (Hydrocortisone 1% Cr) 1 applic TID TOP Last administered on 10/06 14:07; Admin Dose 1 APPLIC; Start 10/06/18 at 09:00 Diphenhydramine HCl (Benadryl) 25 mg Q6H PRN PO ITCHING Last administered on 10/11/18 22:04; Admin Dose 25 MG; Start 10/06/18 at 04:30 Tramadol HCl (Ultram) 50 mg Q4H PRN PO BREAKTHROUGH PAIN Last administered on 10/14/18 11:53; Admin Dose 50 MG; Start 10/07/18 at 10:10 Tramadol HCl (Ultram) 100 mg Q4H PRN PO MODERATE PAIN LEVEL 4-6 Last a dministered on 10/18/18 14:47; Admin Dose 100 MG; Start 10/07/18 at 10:30 Guaifenesin/ Dextromethorphan (Robitussin Dm Liquid Cup) 10 ml Q6H PRN PO COUGH; Start 10/08/18 at 04:00 [facility] This patient sheikh... PRN PRN XX WOUND CARE; Start 10/08/18 at 04:30 Ondansetron HCl (Zofran Inj) 4 mg Q6H PRN IV NAUSEA AND/OR VOMITING; Start 10/11/18 at 14:30 Ondansetron HCl (Zofran Odt) 4 mg Q6H PRN ODT NAUSEA AND/OR VOMITING Last administered on 10/16/18 09:51; Admin Dose 4 MG; Start 10/11/18 at 14:30 Oxycodone HCl (Roxicodone) 5 mg Q4 PRN PO SEVERE PAIN LEVEL 7-10; Start 10/13/18 at 22:00 Bisacodyl (Dulcolax Supp) 10 mg DAILY PRN [place] CONSTIPATION Last administered on 10/16/18at 13:56; Admin Dose 10 MG; Start 10/16/18 at 14:00 Fluticasone/ Vilanterol (Breo Ellipta 100-25 Mcg Inh) 1 inh QPM INH ; Start 10/17/18 at 21:00 Metoclopramide HCl (Reglan) 5 mg Q6H PRN PO NAUSEA AND/OR VOMITING Last administered on 10/17/18at 17:51; Admin Dose 5 MG; Start 10/17/18 at 10:00 ANGELA MARLOW October 18, 2018 17:15
[2018-10-18 19:31] VITALS: BP 135/60; PULSE 79; RESP 16
[2018-10-18] MEDS: SENNA TAB PO SCH (19:56)
[2018-10-18] MEDS: ZOLPIDEM 5 MG TAB PO PRN (19:56)
[2018-10-18] MEDS: FLUTICASONE/VILANTEROL 100-25 INH SCH (19:58)
[2018-10-19 02:13] VITALS: BP 122/88; PULSE 72; RESP 18
[2018-10-19] MEDS: traMADol 50 MG TAB PO PRN ×4 (04:16→14:56)
[2018-10-19] MEDS: PANTOPRAZOLE (EC) 40 MG TAB PO SCH ×2 (06:29→18:00)
[2018-10-19 07:00] VITALS: BP 107/57; PULSE 74; RESP 18
[2018-10-19] MEDS: ALBUTEROL 0.083% (NEB) 2.5 MG/3 ML AMP HHN SCH ×2 (08:01→15:31)
[2018-10-19] MEDS: HYDROCORTISONE 1% 28 GM CR TOP SCH ×2 (09:00→12:26)
[2018-10-19] MEDS: METOPROLOL 25 MG TAB PO SCH (09:00)
[2018-10-19] MEDS: AMLODIPINE 5 MG TAB PO SCH (09:00)
[2018-10-19] MEDS: NICOTINE (14 MG/24 HR) PATCH TRANSDERM SCH (09:29)
[2018-10-19] MEDS: DOCUSATE SODIUM 100 MG CAP PO SCH (09:30)
[2018-10-19] MEDS: GUAIFENESIN LA 600 MG TABSR PO SCH (09:30)
[2018-10-19] MEDS: BISACODYL (EC) 5 MG TAB PO PRN (09:30)
[2018-10-19] MEDS: ASPIRIN 81 MG TAB PO SCH (09:31)
--- NOTE | 2018-10-19 10:05 | PN ---
Date/Time of Note Date/Time of Note DATE: 10/19/18 TIME: 10:05 Assessment/Plan VTE Prophylaxis Risk score (from Ns)>0 risk: 3 SCD applied (from Ns): Yes Pharmacological prophylaxis: other Lines/Catheters IV Catheter Type (from [facility]): Saline Lock Assessment/Plan Hospital Course Patient is comfortable on room air, remains hemodynamically stable afebrile, DC planning. Assessment/Plan -Pulmonary Debility secondary to broncho-pneumonia, and COPD exacerbation. -Left proximal humeral fracture, status post evaluation by Dr. Burleson and orthopedic surgery consultation with recommendation to continue immobilization with sling and no weight bearing. -Coronary artery disease, history of stent placement in 2017. Continue aspirin. Dr. Strickland is following in cardiology consultation. 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 Butts in oncology consultation with recommendation to follow-up with CT scan of the chest in 3 months. Patient follows with Dr. Mackey, oncologist as an outpatient. Patient had a history of pneumonia requiring chest tube in March 2018. -GERD -Former smoker Further recommendations based on clinical course. Plan of care discussed with Dr. Awan. Result Diagram: 10/17/18 0641 10/17/18640 Exam/Review of Systems Exam Vitals Vital Signs Date Temp Pulse Resp B/P (MAP) Pulse Ox O2 O2 Flow FiO2 Time Delivery Rate 10/19/18 85 20 96 21 08:03 10/19/18 98.1 107/57 Room Air 07:00 (74) Intake and Output 10/18/18 10/18/18 10/19/18 1515:00 23:00 07:00 IntakeIntake Total 200 ml 1400 ml 240 ml OutputOutput Total 800 ml BalanceBalance 200 ml 600 ml 240 ml Exam Constitutional: alert, oriented Respiratory: clear to auscultation Cardiovascular: nl pulses Gastrointestinal: soft, non-tender Extremities: normal pulses, other (Left upper extremity immobilized with sling) Neurological: nl mental status Medications Medication Current Medications Non-Formulary Medication 2 ea BID PRN INH WHEEZING AND SOB; Start 10/05/18 at 22:11 Nicotine (Nicoderm 14 Mg/ 24hr) 1 patch DAILY TRANSDERM Last administered on 10/19/18at 09:29; Admin Dose 1 PATCH; Start 10/05/18 at 22:11 Pantoprazole (Protonix Tab) 40 mg BID@,18 PO Last administered on 10/19/18 06:29; Admin Dose 40 MG; Start 10/05/18 at 22:11 Aspirin (Aspirin) 81 mg DAILY PO Last administered on 10/19/18 09:31; Admin Dose 81 MG; Start 10/05/18 at 22:11 Lactulose (Enulose) 20 gm DAILY PRN PO CONSTIPATION Last administered on 11:18; Admin Dose 20 GM; Start 10/05/18 at 22:30 Acetaminophen (Tylenol Tab) 650 mg Q4H PRN PO MILD PAIN(1-3)OR ELEVATED TEMP; Start 10/05/18 at 23:00 Albuterol (Proventil 0.083% (Neb)) 2.5 mg TID RESP THERAPY HHN Last administered on 10/19/18 08:01; Admin Dose 2.5 MG; Start 10/05/18 at 23:00 Amlodipine Besylate (Norvasc) 5 mg BID PO Last administered on 10/18/18 19:57; Admin Dose 5 MG; Start 10/05/18 at 23:00 Bisacodyl (Dulcolax) 10 mg DAILY PRN PO CONSTIPATION Last administered on 10/19/18 09:30; Admin Dose 10 MG; Start 10/05/18 at 23:30 Calcium Carbonate (Tums) 500 mg Q4H PRN PO HEARTBURN Last administered on 10/17/18 21:41; Admin Dose 500 MG; Start 10/05/18 at 23:30 Docusate Sodium (Colace) 100 mg BID PO Last administered on 10/19/18 09:30; Admin Dose 100 MG; Start 10/05/18 at 23:01 Guaifenesin (Mucinex) 600 mg BID PO Last administered on 10/19/18 09:30; Admin Dose 600 MG; Start 10/05/18 at 23:02 Magnesium Hydroxide (Milk Of Mag) 30 ml BID PRN PO CONSTIPATION Last administered on 10/14/18 17:43; Admin Dose 30 ML; Start 10/05/18 at 23:30 Metoprolol Tartrate (Lopressor) 25 mg BID PO Last administered on 10/18/18 19:57; Admin Dose 25 MG; Start 10/05/18 at 23:02 Senna (Senokot) 1 tab HS PO Last administered on 10/18/18 19:56; Admin Dose 1 TAB; Start 10/05/18 at 23:04 Zolpidem Tartrate (Ambien) 5 mg HS MAY REPEAT X 1 PRN PO INSOMNIA Last administered on 10/18/18 19:56; Admin Dose 5 MG; Start 10/05/18 at 23:05 Hydrocortisone (Hydrocortisone 1% Cr) 1 applic TID TOP Last administered on 10/18/18 20:03; Admin Dose 1 APPLIC; Start 10/06/18 at 09:00 Diphenhydramine HCl (Benadryl) 25 mg Q6H PRN PO ITCHING Last administered on 10/11/18 22:04; Admin Dose 25 MG; Start 10/06/18 at 04:30 Tramadol HCl (Ultram) 50 mg Q4H PRN PO BREAKTHROUGH PAIN Last administered on 10/14/18 11:53; Admin Dose 50 MG; Start 10/07/18 at 10:10 Tramadol HCl (Ultram) 100 mg Q4H PRN PO MODERATE PAIN LEVEL 4-6 Last administered on 10/19/18 09:31; Admin Dose 100 MG; Start 10/07/18 at 10:30 Guaifenesin/ Dextromethorphan (Robitussin Dm Liquid Cup) 10 ml Q6H PRN PO COUGH; Start 10/08/18 at 04:00 Miscellaneous Information (Pending [facility] Order For Wound Care) This patient sheikh. .. PRN PRN XX WOUND CARE; Start 10/08/18 at 04:30 Ondansetron HCl (Zofran Inj) 4 mg Q6H PRN IV NAUSEA AND/OR VOMITING; Start 10/11/18 at 14:30 Ondansetron HCl (Zofran Odt) 4 mg Q6H PRN ODT NAUSEA AND/OR VOMITING Last administered on 10/16/18 09:51; Admin Dose 4 MG; Start 10/11/18 at 14:30 Oxycodone HCl (Roxicodone) 5 mg Q4 PRN PO SEVERE PAIN LEVEL 7-10; Start 10/13/18 at 22:00 Bisacodyl (Dulcolax Supp) 10 mg DAILY PRN [place] CONSTIPATION Last administered on 10/16/18 13:56; Admin Dose 10 MG; Start 10/16/18 at 14:00 Fluticasone/ Vilanterol (Breo Ellipta 100-25 Mcg Inh) 1 inh QPM INH Last admini stered on 10/18/18 19:58; Admin Dose 1 INH; Start 10/17/18 at 21:00 Metoclopramide HCl (Reglan) 5 mg Q6H PRN PO NAUSEA AND/OR VOMITING Last administered on 10/17/18 17:51; Admin Dose 5 MG; Start 10/17/18 at 10:00 ANGELA MARLOW October 19, 2018 10:05
--- NOTE | 2018-10-19 10:41 | CONS ---
Consult Date/Type/Reason Admit Date/Time Oct 05, 2018 at 21:11 Initial Consult Date Requesting Provider: TONEY DEL CID MD Date/Time of Note DATE: 10/19/18 TIME: 10:39 Subjective NO acute events - pt stable - no CP - uin good fluid status - dispo planned today - pt anxious, but much improved. ROS: No fever, no chills, no nausea, no vomiting, no diarrhea/constipation No recent weight changes No chest pain, no PND, no orthopnea - mild SOB No dizziness, blurred vision No thirst, no heat or cold intolerance Objective Vitals Vital Signs Date Temp Pulse Resp B/P (MAP) Pulse Ox O2 O2 Flow FiO2 Time Delivery Rate 10/19/18 85 20 96 21 08:03 10/19/18 98.1 107/57 Room Air 07:00 (74) Intake and Output 10/18/18 10/18/18 10/19/18 1515:00 23:00 07:00 IntakeIntake Total 200 ml 1400 ml 240 ml OutputOutput Total 800 ml BalanceBalance 200 ml 600 ml 240 ml Exam General: WN/WD/NAD, AOx 3 HEENT: Unicetric/atraumatic/EOMI (follow commands) NECK: JVD elevated, no thyromegaly Lymph: no lymphadenopathy HEART: regular with no S3, II/ systolic murmur at apex LUNGS: Coarse sounds ABD: soft, NT, ND, +BS : Intact Neuro: non focal SKIN: chronic changes EXT: trace edema, arm in sling Results/Medications Result Diagram: 10/17/18 0641 10/17/18 0641 Home Meds Reported Medications Metoprolol Tartrate* (Lopressor*) 25 Mg Tab, 25 MG PO DAILY, #60 TAB 09/30/18 Omeprazole* (Omeprazole*) 10 Mg Capsule.dr, 10 MG PO DAILY, #30 CAP 09/30/18 Medications Current Medications Non-Formulary Medication 2 ea BID PRN INH WHEEZING AND SOB; Start 10/05/18 at 22:11 Nicotine (Nicoderm 14 Mg/ 24hr) 1 patch DAILY TRANSDERM Last administered on 10/19/18at 09:29; Admin Dose 1 PATCH; Start 10/05/18 at 22:11 Pantoprazole (Protonix Tab) 40 mg BID@06,18 PO Last administered on 10/19/18 06:29; Admin Dose 40 MG; Start 10/05/18 at 22:11 Aspirin (Aspirin) 81 mg DAILY PO Last administered on 10/19/18 09:31; Admin Dose 81 MG; Start 10/05/18 at 22:11 Lactulose (Enulose) 20 gm DAILY PRN PO CONSTIPATION Last administered on 10/15/18 11:18; Admin Dose 20 GM; Start 10/05/18 at 22:30 Acetaminophen (Tylenol Tab) 650 mg Q4H PRN PO MILD PAIN(1-3)OR ELEVATED TEMP; Start 10/05/18 at 23:00 Albuterol (Proventil 0.083% (Neb)) 2.5 mg TID RESP THERAPY HHN Last administered on 10/19/18 08:01; Admin Dose 2.5 MG; Start 10/05/18 at 23:00 Amlodipine Besylate (Norvasc) 5 mg BID PO Last administered on 10/18/18 19:57; Admin Dose 5 MG; Start 10/05/18 at 23:00 Bisacodyl (Dulcolax) 10 mg DAILY PRN PO CONSTIPATION Last administered on 10/19/18 09:30; Admin Dose 10 MG; Start 10/05/18 at 23:30 Calcium Carbonate (Tums) 500 mg Q4H PRN PO HEARTBURN Last administered on 10/17/18 21:41; Admin Dose 500 MG; Start 10/05/18 at 23:30 Docusate Sodium (Colace) 100 mg BID PO Last administered on 10/19/18 09:30; Admin Dose 100 MG; Start 10/05/18 at 23:01 Guaifenesin (Mucinex) 600 mg BID PO Last administered on 10/19/18 09:30; Admin Dose 600 MG; Start 10/05/18 at 23:02 Magnesium Hydroxide (Milk Of Mag) 30 ml BID PRN PO CONSTIPATION Last administered on 10/14/18 17:43; Admin Dose 30 ML; Start 10/05/18 at 23:30 Metoprolol Tartrate (Lopressor) 25 mg BID PO Last administered on 10/18/18 19:57; Admin Dose 25 MG; Start 10/05/18 at 23:02 Senna (Senokot) 1 tab HS PO Last administered on 10/18/18 19:56; Admin Dose 1 TAB; Start 10/05/18 at 23:04 Zolpidem Tartrate (Ambien) 5 mg HS MAY REPEAT X 1 PRN PO INSOMNIA Last administered on 10/18/18 19:56; Admin Dose 5 MG; Start 10/05/18 at 23:05 Hydrocortisone (Hydrocortisone 1% Cr) 1 applic TID TOP Last administered on 10/18/18 20:03; Admin Dose 1 APPLIC; Start 10/06/18 at 09:00 Diphenhydramine HCl (Benadryl) 25 mg Q6H PRN PO ITCHING Last administered on 10/11/18 22:04; Admin Dose 25 MG; Start 10/06/18 at 04:30 Tramadol HCl (Ultram) 50 mg Q4H PRN PO BREAKTHROUGH PAIN Last administered on 10/14/18 11:53; Admin Dose 50 MG; Start 10/07/18 at 10:10 Tramadol HCl (Ultram) 100 mg Q4H PRN PO MODERATE PAIN LEVEL 4-6 Last administered on 10/19/18 09:31; Admin Dose 100 MG; Start 10/07/18 at 10:30 Guaifenesin/ Dextromethorphan (Robitussin Dm Liquid Cup) 10 ml Q6H PRN PO COUGH; Start 10/08/18 at 04:00 Miscellaneous Information (Pending [facility] Order For Wound Care) This patient sheikh... PRN PRN XX WOUND CARE; Start 10/08/18 at 04:30 Ondansetron HCl (Zofran Inj) 4 mg Q6H PRN IV NAUSEA AND/OR VOMITING; Start 10/11/18 at 14:30 Ondansetron HCl (Zofran Odt) 4 mg Q6H PRN ODT NAUSEA AND/OR VOMITING Last administered on 10/16/18 09:51; Admin Dose 4 MG; Start 10/11/18 at 14:30 Oxycodone HCl (Roxicodone) 5 mg Q4 PRN PO SEVERE PAIN LEVEL 7-10; Start 10/13/18 at 22:00 Bisacodyl (Dulcolax Supp) 10 mg DAILY PRN [place] CONSTIPATION Last administered on 10/16/18 13:56; Admin Dose 10 MG; Start 10/16/18 at 14:00 Fluticasone/ Vilanterol (Breo Ellipta 100-25 Mcg Inh) 1 inh QPM INH Last administered on 10/18/18at 19:58; Admin Dose 1 INH; Start 10/17/18 at 21:00 Metoclopramide HCl (Reglan) 5 mg Q6H PRN PO NAUSEA AND/OR VOMITING Last administered on 10/17/18at 17:51; Admin Dose 5 MG; Start 10/17/18 at 10:00 Assessment/Plan Hospital Course (Demo Recall) 1.H/O stent-per patient last placed 06/2016-took plavix x 6 months. self d/c'd asa due to easy bruising. Tolerating now. NL EF by echo this admit - doing well, compliant with rehab - tolerating well - no CP noted - doing well - dispo planned. 2.s/p fall-? mechanical - no arrhythmia noted - no evidence of arrhythmia - off tele - no new sx. 3.HTN-somewhat labile but overall reasonable - stable overall. Controlled. 4. Humeral fx-decresaed swelling/some pain - better now - con't rehab 5.H/O MD 2006? - no CP - med rX advised - outpt f/up with DR. Strickland. 6.tobacco dependence 7. N/V day prior,m now resolved. ABI MASON MD October 19, 2018 10:41
[2018-10-19] MEDS: DIPHENHYDRAMINE 25 MG CAP PO PRN (12:31)
[2018-10-19] MEDS: ONDANSETRON (ODT) 4 MG TAB ODT PRN (13:02)
[2018-10-19 14:00] VITALS: BP 130/62; PULSE 77; RESP 18
--- NOTE | 2018-10-19 14:06 | DS ---
Date/Time of Note Date/Time of Note DATE: 10/19/18 TIME: 14:06 Discharge Summary Admission/Discharge Info Admit Date/Time Oct 05, 2018 at 21:11 Discharge Date/Time Discharge Diagnosis 1.Pulmonary debility secondary to bronchopneumonia and COPD exacerbation. 2. Left proximal humeral fracture, being treated conservatively. 3. History of adenocarcinoma. 4. Hypertension. 5. Hyperlipidemia. 6. Gastroesophageal reflux disease. 7. Left foot drop. 8. Coronary artery disease with history of stent. 9. Improvements in self-care and mobility. Patient Condition: Good Hospital Course The patient was admitted for comprehensive interdisciplinary rehabilitation and made steady functional gains from a Mod level to a SBA level for self care tasks and mobility including ambulating over 150 feet with the use of a FWW. Patient is being discharged home with the recommendation of home health PT, OT and RN follow up. The DC meds are per the medication reconciliation sheet. The discharge equipment recommendations include: FWW, BSC, shower chair. The patient will follow up with PMD upon DC. Home Meds Reported Medications Metoprolol Tartrate* (Lopressor*) 25 Mg Tab, 25 MG PO DAILY, #60 TAB 09/30/18 Omeprazole* (Omeprazole*) 10 Mg Capsule.dr, 10 MG PO DAILY, #30 CAP 09/30/18 Primary Care Provider Not On Staff Doctor NUHA HUI MD October 19, 2018 14:06
== END 2018-10-19 17:30 | disposition home health service (06) | DRG 559 ==
LOC: VRC 21:11
PROVIDERS: ADMIT Physical Medicine & Rehabilitation; ATTEND Internal Medicine
PROC: F07Z5ZZ Bed Mobility Treatment (ICD-10-PCS; principal; 2018-10-05)
PROC: F08Z2ZZ Grooming/Personal Hygiene Treatment (ICD-10-PCS; 2018-10-05)
DX: S42.202D Unspecified fracture of upper end of left humerus, subsequent encounter for fracture with routine healing (principal); J18.9 Pneumonia, unspecified organism; J18.0 Bronchopneumonia, unspecified organism; J44.0 Chronic obstructive pulmonary disease with (acute) lower respiratory infection; N39.0 Urinary tract infection, site not specified; G89.18 Other acute postprocedural pain; R53.81 Other malaise; K21.9 Gastro-esophageal reflux disease without esophagitis; Z88.0 Allergy status to penicillin; Z88.2 Allergy status to sulfonamides; Z86.79 Personal history of other diseases of the circulatory system; Z95.5 Presence of coronary angioplasty implant and graft; I25.10 Atherosclerotic heart disease of native coronary artery without angina pectoris; Z85.9 Personal history of malignant neoplasm, unspecified; I10 Essential (primary) hypertension; E78.5 Hyperlipidemia, unspecified; W18.30XD Fall on same level, unspecified, subsequent encounter; Z79.82 Long term (current) use of aspirin; M21.372 Foot drop, left foot; F17.200 Nicotine dependence, unspecified, uncomplicated; F06.31 Mood disorder due to known physiological condition with depressive features
CPT/HCPCS: 71045; 73030; 74018; 80048; 80053; 81001; 85025; 87081; 87086; 94640; 97110; 97116; 97150; 97163; 97166; 97530; 97535; 97542; J0696; J2405; L3675